=== PATIENT | female | born 1940 | race Caucasian/White ===

== ENCOUNTER 2016-07-22 05:09 | Inpatient (IN) | payer MEDICARE ==
[2016-07-22] VITALS (9 sets, daily range): BP systolic 119–149; BP diastolic 65–90; PULSE 88–120; RESP 18–20; TEMP 97.3–98.8; O2SAT 96–97
[~2016-07-22] VITALS: Ht 162.6 cm; Wt 70.2 kg
[~2016-07-22 05:09] MED LIST: EDOX1TAB5 PO; HYDR12.56 PO; LISI-360 PO; LISI10TA3 PO; METO50TA PO; MULT400T PO
[2016-07-22] MEDS ORDERED: APIX5TAB PO (05:15)
[2016-07-22] MEDS ORDERED: COLC1CAP3 PO ×2 (05:17→16:19)
[2016-07-22] MEDS ORDERED: AMIO200T PO (05:17)
[2016-07-22] MEDS ORDERED: METO100T PO (05:17)
--- NOTE | 2016-07-22 06:26 | PD ---
HPI Chief Complaint: Bleeding Time Seen by Provider: 05:33 Travel History International Travel<30 days: No Contact w/Intl Traveler<30days: No Traveled to known affect area: No History of Present Illness HPI 76-year-old female presents to the emergency department by EMS transport from home where she noted blood on the gauze from her post chest tube removal site. Patient is prescribed Eliquis. Patient's last dose of Eliquis 5 mg was Sunday morning. Patient was just discharged from [facility] Sunday afternoon. Patient was hospitalized 07/12/16 at [facility] to undergo cardiac ablation for atrial fibrillation. Patient states during the procedure there was a complication and she ended up with a hemopneumothorax requiring chest tube insertion. Patient has done fairly well however she has been having intermittent drainage from the chest tube insertion site and evening before being discharged on Sunday from the hospital for a large amount of bleeding this seemed to paulo and it was felt patient was stable for outpatient management. Patient has returned home to the area and reports that she lives alone and while up out of bed at 4 AM she noticed some moisture on her gauze and then identified that there was significant blood saturating the gauze dressing. Patient does not report any shortness of breath pleuritic pain chest pain dizziness near-syncope or syncope. Patient denies any increased activity that may have precipitated increased oozing from the site. Patient has had no fever or chills. No cough. Patient denies other concerns or complaints. Patient states she was recently on Savaysa and changed to Eliquis yesterday and had been on Multaq and is now prescribed amiodarone. Her docket clerk is Dr Somers. [facility] Past Medical History Narrative Medical Arthritis atrial fibrillation hypertension cardiac ablation hemopneumothorax with tube thoracostomy anticoagulation therapy; no tobacco use no alcohol use: Nursing notes reviewed Hx Anticoagulant Therapy: Yes Arthritis: Yes Atrial Fibrillation: Yes Cardiovascular Problems: Yes Diminished Hearing: No Hypertension: Yes Tetanus Vaccination: < 5 Years Influenza Vaccination: Yes ?: Not Menopausal: Yes Past Surgical History Cardiac Surgery: Yes (ablation for afib) Social History Alcohol Use: No Tobacco Use: No Substance Use: No Allergies-Medications (Allergen,Severity, Reaction): Coded Allergies: No Known Allergies (Verified , 07/22/16) Reported Meds & Prescriptions Reported Meds & Active Scripts Active Reported Amiodarone (Amiodarone HCl) 200 Mg Tab 200 Mg PO BID Metoprolol Tartrate 100 Mg Tab 100 Mg PO BID Colchicine 0.6 Mg Cap 0.6 Mg PO DAILY Eliquis (Apixaban) 5 Mg Tab 5 Mg PO BID Review of Systems Except as stated in HPI: all other systems reviewed are Neg Physical Exam Narrative GENERAL: Well-developed well-nourished female in no acute distress no respiratory distress; triage vital signs remarkable for heart rate; on shelter monitor heart rate is 110 in sinus tachycardia. SKIN: Warm and dry. HEAD: Normocephalic. EYES: No scleral icterus. No injection or drainage. NECK: Supple, trachea midline. No JVD or lymphadenopathy. CARDIOVASCULAR: Increased Regular rate and rhythm without murmurs, gallops, or rubs. Chest wall: Right chest wall 2 cm post-chest tube insertion site with old dried blood and scant oozing of old blood is noted. Ecchymosis is noted as well no crepitus. Minimal tenderness to direct palpation. No fluctuance. No induration or redness. No purulent drainage. RESPIRATORY: Breath sounds equal bilaterally right base decreased breath sounds to auscultation. No accessory muscle use. GASTROINTESTINAL: Abdomen soft, non-tender, nondistended. MUSCULOSKELETAL: No cyanosis, or edema. Radial and dorsalis pedis pulses 2+ to palpation. BACK: Nontender without obvious deformity. No CVA tenderness. Data Data Last Documented VS Vital Signs Date Time Temp Pulse Resp B/P Pulse Ox O2 Delivery O2 Flow Rate FiO2 07/22/16 05:28 88 18 96 Room Air 07/22/16 05:25 98.8 141/77 Orders Chest,Inspiration & Expiration (07/22/16 ) ^ Saline Lock (07/22/16 06:17) Complete Blood Count With Diff (07/22/16 06:17) Act Partial Throm Time (Ptt) (07/22/16 06:17) Prothrombin Time / Inr (Pt) (07/22/16 06:17) Type And Screen (07/22/16 06:17) Basic Metabolic Panel (Bmp) (07/22/16 06:17) Electrocardiogram (07/22/16 ) Place In Observation (07/22/16 ) Vital Signs (Adult) Q4H (07/22/16 07:26) Activity Oob With Assistance (07/22/16 07:26) Ios Architect / Telemetry .CONTINUOUS (07/22/16 07:26) Diet Heart Healthy (07/22/16 Breakfast) Sodium Chloride 0.9% Flush (Ns Flush) (07/22/16 07:30) Sodium Chloride 0.9% Flush (Ns Flush) (07/22/16 09:00) Acetaminophen (Tylenol) (07/22/16 07:30) Ondansetron Inj (Zofran Inj) (07/22/16 07:30) Magnesium Hydroxide Liq (Milk Of Magnesi (07/22/16 07:30) Basic Metabolic Panel (Bmp) (07/23/16 06:00) Complete Blood Count With Diff (07/23/16 06:00) Resp Oxygen Grupo C Titrat 1-4 L (07/22/16 ) Scd Bilateral/Knee High ABIMAEL.BID (07/22/16 07:26) Naloxone Inj (Narcan Inj) (07/22/16 07:30) Admit Order (Ed Use Only) (07/22/16 ) ^ Saline Lock (07/22/16 07:27) Resp Oxygen Grupo C Titrat 1-4 L (07/22/16 ) Notify Dr: Other (07/22/16 07:27) Sodium Chloride 0.9% Flush (Ns Flush) (07/22/16 09:00) Sodium Chloride 0.9% Flush (Ns Flush) (07/22/16 07:30) Hgb & Hct (07/22/16 13:00) Hgb & Hct (07/22/16 19:00) Labs Laboratory Tests Test 07/22/16 06:25 White Blood Count 11.9 TH/MM3 Red Blood Count 3.10 MIL/MM3 Hemoglobin 10.0 GM/DL Hematocrit 30.0 % Mean Corpuscular Volume 96.8 FL Mean Corpuscular Hemoglobin 32.2 PG Mean Corpuscular Hemoglobin 33.3 % Concent Red Cell Distribution Width 13.4 % Platelet Count 444 TH/MM3 Mean Platelet Volume 7.2 FL Neutrophils (%) (Auto) 69.9 % Lymphocytes (%) (Auto) 13.5 % Monocytes (%) (Auto) 11.4 % Eosinophils (%) (Auto) 3.0 % Basophils (%) (Auto) 2.2 % Neutrophils # (Auto) 8.2 TH/MM3 Lymphocytes # (Auto) 1.6 TH/MM3 Monocytes # (Auto) 1.4 TH/MM3 Eosinophils # (Auto) 0.4 TH/MM3 Basophils # (Auto) 0.3 TH/MM3 CBC Comment DIFF FINAL Differential Comment Prothrombin Time 10.8 SEC Prothromb Time International 1.0 RATIO Ratio Activated Partial 27.7 SEC Thromboplast Time Sodium Level 136 MEQ/L Potassium Level 4.0 MEQ/L Chloride Level 102 MEQ/L Carbon Dioxide Level 26.0 MEQ/L Anion Gap 8 MEQ/L Blood Urea Nitrogen 9 MG/DL Creatinine 0.60 MG/DL Estimat Glomerular Filtration 98 ML/MIN Rate Random Glucose 95 MG/DL Calcium Level 8.3 MG/DL [facility] Medical Decision Making Medical Screen Exam Complete: Yes Emergency Medical Condition: Yes Medical Record Reviewed: Yes Interpretation(s) CBC & BMP Diagram 07/22/16 06:25 Vital Signs Date Time Temp Pulse Resp B/P Pulse Ox O2 Delivery O2 Flow Rate FiO2 07/22/16 05:28 88 18 96 Room Air 07/22/16 05:25 98.8 88 18 141/77 96 Differential Diagnosis Coagulopathy, seroma, pneumothorax, anemia, pneumonia Narrative Course Imaging study ordered along with saline lock and basic labs Site was evaluated with scant dark oozing blood but no purulent induration fluctuance erythema or increased warmth. Steri-Strips were applied. Labs resulted hemoglobin 10.0 with minimal white count elevation 11,900 and no neutrophilia; Coagulation studies and normal range @7:05 AM patient remains mildly tachycardic EKG performed; plan will be to observe patient for change in hemoglobin due to Eliquis therapy; call placed to [facility] service; patient denies fever chills shortness of breath productive cough identified by chest x-ray to have no evidence for pneumothorax does have small effusion with infiltrate to the right base per reading radiologist. Physician Communication Physician Communication discussed with DR Bertrand for obs admission Diagnosis Primary Impression: Postprocedural seroma of a respiratory system organ or structure following a respiratory system procedure Admitting Information Admitting Physician Requests: Observation Nery Escobar MD Jul 22, 2016 06:26
[2016-07-22 06:35] LABS: AUTOMATED NEUTROPHIL # 8.2 TH/MM3 (1.8-7.7); BASOPHIL # 0.3 TH/MM3 (0-0.2); BASOPHIL % 2.2 % (0.0-2.0); EOSINOPHIL # 0.4 TH/MM3 (0-0.4); LYMPH % 13.5 % (9.0-44.0); LYMPHOCYTE # 1.6 TH/MM3 (1.0-4.8); MEAN CELL VOLUME 96.8 FL (80.0-100.0); MEAN CORPUSCULAR HEMOGLOBIN 32.2 PG (27.0-34.0); MEAN CORPUSCULAR HGB CONC 33.3 % (32.0-36.0); MONO % 11.4 % (0.0-8.0); NEUT % 69.9 % (16.0-70.0); PLATELET COUNT 444 TH/MM3 (150-450); RED CELL DISTRIBUTION WIDTH 13.4 % (11.6-17.2); WHITE BLOOD COUNT 11.9 TH/MM3 (4.0-11.0)
[2016-07-22 06:36] LABS: HEMO FLAGS DIFF FINAL
--- NOTE | 2016-07-22 06:37 | RADHPO ---
EXAM DATE/TIME: 07/22/2016 06:02 [facility] COMPARISON: No previous studies available for comparison. EXTERNAL COMPARISON : [facility] INDICATIONS : Shortness of breath. MEDICAL HISTORY : Hypertension. Arthritis. AFIB SURGICAL HISTORY : Total knee replacement, left. Total knee replacement, right. Right chest tube ENCOUNTER: Initial ACUITY: 1 day PAIN SCORE: 3/10 LOCATION: Bilateral chest FINDINGS: Single portable frontal view of the chest shows consolidation within the right lower lobe with small effusion. Left lung is clear. The heart is at the upper limits of normal in terms of size. CONCLUSION: Right lower lobe infiltrate with small effusion. Brent Cervantes Jr., MD on July 22, 2016 at 6:35 Board Certified Radiologist. This report was verified electronically.
[2016-07-22 06:47] LABS: APTT (PATIENT) 27.7 SEC (24.3-30.1); PROTHROMBIN TIME - PATIENT 10.8 SEC (9.8-11.6)
--- NOTE | 2016-07-22 07:29 | HHI.HP ---
[facility] No Primary Care Physician Admission Diagnosis Post chest tube bleeding w/ anticoagulation Diagnoses: Chief Complaint: Chest tube insertion side drainage. Travel History International Travel<30 Days: No Contact w/Intl Traveler <30 Da: No Traveled to Known Affected Are: No History of Present Illness Ms. Gracia is a pleasant 76-year-old female with a history of atrial fibrillation who presented to the emergency department on 07/22/2016 due to blood on the large from her chest tube removal site. Patient was admitted at [facility] in [place] for cardiac ablation for atrial fibrillation. . Procedure patient had complication of hemopneumothorax and she required chest tube insertion. Patient was discharged from the hospital on 07/21. She was advised to continue apixaban which she tube in the morning at the hospital on 07/21/2016. At the time of this interview, patient is doing well. No chest pain, shortness of breath, fever or chills. She reports no further bleeding from the chest tube removal site. Patient follows up with data modeling architect Dr. Somers. Review of Systems Except as stated in HPI: all other systems reviewed are Neg Past Family Social History Past Medical History Arthritis, atrial fibrillation Past Surgical History Bilateral postsurgery, knee scope Reported Medications Amiodarone (Amiodarone HCl) 200 Mg Tab 200 Mg PO BID Metoprolol Tartrate 100 Mg Tab 100 Mg PO BID Colchicine 0.6 Mg Cap 0.6 Mg PO DAILY Eliquis (Apixaban) 5 Mg Tab 5 Mg PO BID Allergies: Coded Allergies: No Known Allergies (Verified , 07/22/16) Family History No family history of heart disease. No family history of Alzheimer's or Parkinson's. Physical Exam Vital Signs Vital Signs Date Time Temp Pulse Resp B/P Pulse Ox O2 Delivery O2 Flow Rate FiO2 07/22/16 05:28 88 18 96 Room Air 07/22/16 05:25 98.8 88 18 141/77 96 Physical Exam GENERAL: This is a well-nourished, well-developed patient, in no apparent distress. SKIN: No rashes, ecchymoses or lesions. Warm and dry. HEAD: Atraumatic. Normocephalic. No temporal or scalp tenderness. EYES: Pupils equal round and reactive. No injection or drainage. ENT: Nose without bleeding, purulent drainage or septal hematoma. Airway patent. NECK: Trachea midline. No lymphadenopathy. Supple, nontender, no meningeal signs. CARDIOVASCULAR: Regular rate and rhythm without murmurs, gallops, or rubs. No JVD. RESPIRATORY: Clear to auscultation. Breath sounds equal bilaterally. No wheezes , rales, or rhonchi. GASTROINTESTINAL: Abdomen soft, non-tender, nondistended. No guarding. MUSCULOSKELETAL: Extremities without clubbing, cyanosis, or edema. NEUROLOGICAL: Awake and alert. Cranial nerves II through XII intact. No focal neurological deficits. Normal speech. Laboratory Laboratory Tests Test 07/22/16 06:25 White Blood Count 11.9 Red Blood Count 3.10 Hemoglobin 10.0 Hematocrit 30.0 Mean Corpuscular Volume 96.8 Mean Corpuscular Hemoglobin 32.2 Mean Corpuscular Hemoglobin 33.3 Concent Red Cell Distribution Width 13.4 Platelet Count 444 Mean Platelet Volume 7.2 Neutrophils (%) (Auto) 69.9 Lymphocytes (%) (Auto) 13.5 Monocytes (%) (Auto) 11.4 Eosinophils (%) (Auto) 3.0 Basophils (%) (Auto) 2.2 Neutrophils # (Auto) 8.2 Lymphocytes # (Auto) 1.6 Monocytes # (Auto) 1.4 Eosinophils # (Auto) 0.4 Basophils # (Auto) 0.3 CBC Comment DIFF FINAL Differential Comment Prothrombin Time 10.8 Prothromb Time International 1.0 Ratio Activated Partial 27.7 Thromboplast Time Sodium Level 136 Potassium Level 4.0 Chloride Level 102 Carbon Dioxide Level 26.0 Anion Gap 8 Blood Urea Nitrogen 9 Creatinine 0.60 Estimat Glomerular Filtration 98 Rate Random Glucose 95 Calcium Level 8.3 Result Diagram: 07/22/1625 07/22/16624 Imaging Last Impressions Chest X-Ray 07/22/16 0000 Signed Impressions: Service Date/Time: Friday, July 22, 2016 06:02 - CONCLUSION: Right lower lobe infiltrate with small effusion. Brent Cervantes Jr., MD Assessment and Plan Problem List: (1) Postprocedural seroma of a respiratory system organ or structure following a respiratory system procedure ICD Code: J95.862 Status: Acute (2) Atrial fibrillation ICD Code: I48.91 Status: Acute Assessment and Plan Ms. Gracia is a pleasant 76-year-old female with a history of atrial fibrillation and recent ablation done at [facility] in [facility] who presented to the emergency department on 07/22/2016 due to bleeding from the chest tube insertion site. During ablation procedure, patient ended up with a hemopneumothorax requiring chest tube insertion. She was discharged on 07/21/2016. Patient to apixaban in the morning of 07/21/2016. - Meagan-procedure complication of atrial fibrillation ablation. - Status post chest tube removal and discharged from the hospital on 2016. - No current drainage noted. - Atrial fibrillation - Currently Apixaban is on hold. - If H&H and hemodynamically stable, patient can likely be discharged on 07/22 and follow up with Dr. Somers. Full code. Jonathan Bertrand DO Jul 22, 2016 07:29
[2016-07-22] MEDS ORDERED: SODIUM CHLORIDE 0.9% FLUSH 10 ML FLUSH IVF PRN (07:30)
[2016-07-22] MEDS ORDERED: ONDANSETRON HCL 4 MG/2 ML VIAL IVP PRN (07:30)
[2016-07-22] MEDS ORDERED: NALOXONE HCL 0.4 MG/ML AMP IV PRN (07:30)
[2016-07-22] MEDS ORDERED: SODIUM CHLORIDE 0.9% FLUSH 10 ML FLUSH IV FLUSH PRN (07:30)
[2016-07-22] MEDS ORDERED: SODIUM CHLORIDE 0.9% FLUSH 10 ML FLUSH IV FLUSH SCH (09:00)
[2016-07-22] MEDS: SODIUM CHLORIDE 0.9% FLUSH 10 ML FLUSH IV FLUSH SCH ×2 (09:01→20:49)
--- NOTE | 2016-07-22 13:44 | EKG ---
Date Performed: 07/22/2016 Time Performed: 07:08:12 PTAGE: 76 years EKG: Sinus tachycardia with PAC(s). Rightward axis Extensive T wave changes are nonspecific Bord joselin ECG Compared to prior tracing no significant change PREVIOUS TRACING : 02/14/2016 14.12 DOCTOR: John Jacobo Interpretating Date/Time 07/22/2016 13:38:40
[2016-07-22 14:02] LABS: REVIEW FLAG FINAL
[2016-07-22] MEDS ORDERED: clonazePAM 0.5 MG TAB PO PRN (16:15)
[2016-07-22] MEDS ORDERED: AMIO400T PO (16:18)
[2016-07-22] MEDS ORDERED: PILL SPLITTER OTHER PRN (16:30)
[2016-07-22 19:04] LABS: HEMATOCRIT 31.1 % (35.0-46.0); REVIEW FLAG FINAL
[2016-07-22] MEDS: AMIODARONE 200 MG TAB PO SCH (20:45)
[2016-07-22] MEDS: METOPROLOL TARTRATE 100 MG TAB PO SCH (20:45)
[2016-07-23] VITALS (9 sets, daily range): BP systolic 125–141; BP diastolic 79–95; PULSE 75–109; RESP 14–20; TEMP 96.6–98.1; O2SAT 95–98
[2016-07-23] MEDS: ACETAMINOPHEN 325 MG TAB PO PRN (04:23)
[2016-07-23 07:24] LABS: AUTOMATED NEUTROPHIL # 8.5 TH/MM3 (1.8-7.7); BASOPHIL # 0.1 TH/MM3 (0-0.2); BASOPHIL % 0.8 % (0.0-2.0); EOSINOPHIL # 0.5 TH/MM3 (0-0.4); EOSINOPHIL % 4.4 % (0.0-4.0); HEMO FLAGS DIFF FINAL; LYMPH % 12.9 % (9.0-44.0); LYMPHOCYTE # 1.5 TH/MM3 (1.0-4.8); MEAN CELL VOLUME 96.4 FL (80.0-100.0); MEAN CORPUSCULAR HEMOGLOBIN 31.8 PG (27.0-34.0); MONO % 10.9 % (0.0-8.0); PLATELET COUNT 448 TH/MM3 (150-450); RED BLOOD COUNT 3.01 MIL/MM3 (4.00-5.30); RED CELL DISTRIBUTION WIDTH 13.2 % (11.6-17.2); WHITE BLOOD COUNT 11.9 TH/MM3 (4.0-11.0)
[2016-07-23 07:35] LABS: POTASSIUM 4.2 MEQ/L (3.5-5.1)
[2016-07-23 07:40] LABS: BICARBONATE 26.7 MEQ/L (21.0-32.0)
--- NOTE | 2016-07-23 08:58 | RADHPO ---
EXAM DATE/TIME: 07/23/2016 08:35 [facility] COMPARISON: CHEST INSPIRATION & EXPIRATION, July 22, 2016, 6:02. INDICATIONS : Post chest tube removal bleeding MEDICAL HISTORY : Hypertension. Arthritis. SURGICAL HISTORY : Total knee replacement, left. Total knee replacement, right. right side chest tube ENCOUNTER: Subsequent ACUITY: 2 days PAIN SCORE: 0/10 LOCATION: Right chest FINDINGS: The heart size is normal. There is a mild to moderate right pleural effusion. There some consolidatio n or atelectasis at the right lower lobe. The left lung is clear. CONCLUSION: Mild to moderate right pleural effusion with accompanying atelectasis or consolidation at the right b ase. Hernandez Koenig MD on July 23, 2016 at 8:54 Board Certified Radiologist. This report was verified electronically.
[2016-07-23] MEDS: COLCHICINE 0.6 MG TAB PO SCH (09:11)
[2016-07-23] MEDS: SODIUM CHLORIDE 0.9% FLUSH 10 ML FLUSH IV FLUSH SCH ×2 (09:11→21:02)
[2016-07-23] MEDS: METOPROLOL TARTRATE 100 MG TAB PO SCH ×2 (09:11→21:06)
[2016-07-23] MEDS: clonazePAM 0.5 MG TAB PO PRN ×2 (09:11→21:07)
[2016-07-23] MEDS: AMIODARONE 200 MG TAB PO SCH ×2 (09:11→21:06)
--- NOTE | 2016-07-23 10:51 | HHI.PR ---
Subjective Remarks Follow up for kylee-procedure complication, afib. Patient reports her chest tube removal site was leaking fluid again last night. No fever, chills. CXR this morning shows mild to moderate pleural effusion. Patient is doing well on room air. Objective Vitals Vital Signs Date Time Temp Pulse Resp B/P Pulse Ox O2 Delivery O2 Flow Rate FiO2 07/23/16 08:00 96.6 102 20 138/79 95 07/23/16 07:53 95 21 07/23/16 04:50 97.1 96 16 141/94 96 07/23/16 00:55 98.1 98 18 140/95 98 07/22/16 21:29 98.8 106 20 135/84 97 07/22/16 20:12 97 21 07/22/16 17:03 108 07/22/16 16:00 97.7 115 20 149/90 96 07/22/16 12:00 97.3 120 20 120/81 97 07/22/16 11:19 106 18 119/65 97 I/O 07/22/16 07/22/16 07/22/16 07/23/16 07/23/16 07/23/16 06:59 14:59 22:59 06:59 14:59 22:59 Intake Total 120 ml 0 ml Balance 120 ml 0 ml Intake Oral 120 ml IV Total 0 ml # Voids 3 # Bowel Movements 0 Result Diagram: 07/23/16 0713 07/23/16 0713 Imaging Last Impressions Chest X-Ray 07/23/16 0000 Signed Impressions: Service Date/Time: Saturday, July 23, 2016 08:35 - CONCLUSION: Mild to moderate right pleural effusion with accompanying atelectasis or consolidation at the right base. Hernandez Koenig MD Objective Remarks GENERAL: Alert, Oriented x 3, NAD. SKIN: Warm and dry. HEAD: Normocephalic. EYES: No scleral icterus. No injection or drainage. NECK: Supple, trachea midline. No JVD or lymphadenopathy. CARDIOVASCULAR: Regular rate and rhythm without murmurs, gallops, or rubs. RESPIRATORY: Moderate air entry. Diminished breath sounds on the right lower lung field. No wheezing appreciated. GASTROINTESTINAL: Abdomen soft, non-tender, nondistended. MUSCULOSKELETAL: No cyanosis, or edema. BACK: Nontender without obvious deformity. No CVA tenderness. Procedures None A/P Problem List: (1) Postprocedural seroma of a respiratory system organ or structure following a respiratory system procedure ICD Code: J95.862 Status: Acute (2) Atrial fibrillation ICD Code: I48.91 Status: Acute Assessment and Plan Ms. Gracia is a pleasant 76-year-old female with a history of atrial fibrillation and recent ablation done at [facility] in [facility] who presented to the emergency department on 07/22/2016 due to bleeding from the chest tube insertion site. During ablation procedure, patient ended up with a hemopneumothorax requiring chest tube insertion. She was discharged on 07/21/2016. Patient to apixaban in the morning of 07/21/2016. - Kylee-procedure complication of atrial fibrillation ablation. - Fluid drainage from chest tube removal site. - Status post chest tube removal and discharged from the hospital on 2016. - Discussed with Dr. Moore (Tipple Tender). - Will initiate Lasix 20mg IV twice a day for a day or so. - Also obtain a CT chest without contrast. - Atrial fibrillation - Currently Apixaban is on hold. Last dose was given prior to her discharge from [place] on Sunday07/20/2016. - If no further leak from chest tube removal site, we will consider discharging patient on 07/24/2016. Full code. SCDs. Jonathan Bertrand DO Jul 23, 2016 10:51
[2016-07-23] MEDS ORDERED: FUROSEMIDE 20 MG/2 ML VIAL IV PUSH ONE (11:00)
--- NOTE | 2016-07-23 12:02 | RADHPO ---
EXAM DATE/TIME: 07/23/2016 11:08 [facility] COMPARISON: No previous studies available for comparison. INDICATIONS : Abnormal chest xray; pleural effusion. Status post right chest tube removal two days ago. RADIATION DOSE: 7.78 CTDIvol (mGy) MEDICAL HISTORY : Hypertension. Cardiovascular disease SURGICAL HISTORY : Orthopedic surgery. Cardiac ablation. ENCOUNTER: Initial ACUITY: 2 days PAIN SCALE: 0/10 LOCATION: Right chest TECHNIQUE: Volumetric scanning of the chest was performed. Using automated exposure control and adjustment of t he mA and/or kV according to patient size, radiation dose was kept as low as reasonably achievable to obtain optimal diagnostic quality images. FINDINGS: There is a moderate right pleural effusion. There is high density material seen dependently in the p osterior inferior aspect of this effusion likely representing hemorrhage. There is increased density at the p osterior right lower lobe and to a lesser degree the posterior lateral aspect of the right middle lobe likely repres enting areas of atelectasis. There is a minimal amount of left pleural fluid present. Significant adenopathy is not seen. Visualized structures in the upper abdomen are unremarkable. The patient has bilateral breast implan ts in place. There does appear to be appear to intracapsular rupture seen bilaterally. CONCLUSION: Moderate right-sided pleural effusion with a suspected large comparative hemorrhage. There is some a ccompanying atelectasis in the right lower lobe and right middle lobes. Hernandez Koenig MD on July 23, 2016 at 11:39 Board Certified Radiologist. This report was verified electronically.
--- NOTE | 2016-07-23 15:05 | PD.CAR.PN ---
CVT Progress Note Subjective/Hospital Course: Referral received and discussed with Dr. Bertrand Full consult to follow Rosemary Rai Objective: Vital Signs Date Time Temp Pulse Resp B/P Pulse Ox O2 Delivery O2 Flow Rate FiO2 07/23/16 12:00 97.0 79 20 130/89 98 07/23/16 09:10 82 07/23/16 08:00 96.6 102 20 138/79 95 07/23/16 07:53 95 21 07/23/16 04:50 97.1 96 16 141/94 96 07/23/16 00:55 98.1 98 18 140/95 98 07/22/16 21:29 98.8 106 20 135/84 97 07/22/16 20:12 97 21 07/22/16 17:03 108 07/22/16 16:00 97.7 115 20 149/90 96 Labs: Laboratory Tests Test 07/23/16 07:13 White Blood Count 11.9 TH/MM3 (4.0-11.0) Red Blood Count 3.01 MIL/MM3 (4.00-5.30) Hemoglobin 9.6 GM/DL (11.6-15.3) Hematocrit 29.0 % (35.0-46.0) Mean Corpuscular Volume 96.4 FL (80.0-100.0) Mean Corpuscular Hemoglobin 31.8 PG (27.0-34.0) Mean Corpuscular Hemoglobin 33.0 % Concent (32.0-36.0) Red Cell Distribution Width 13.2 % (11.6-17.2) Platelet Count 448 TH/MM3 (150-450) Mean Platelet Volume 6.8 FL (7.0-11.0) Neutrophils (%) (Auto) 71.0 % (16.0-70.0) Lymphocytes (%) (Auto) 12.9 % (9.0-44.0) Monocytes (%) (Auto) 10.9 % (0.0-8.0) Eosinophils (%) (Auto) 4.4 % (0.0-4.0) Basophils (%) (Auto) 0.8 % (0.0-2.0) Neutrophils # (Auto) 8.5 TH/MM3 (1.8-7.7) Lymphocytes # (Auto) 1.5 TH/MM3 (1.0-4.8) Monocytes # (Auto) 1.3 TH/MM3 (0-0.9) Eosinophils # (Auto) 0.5 TH/MM3 (0-0.4) Basophils # (Auto) 0.1 TH/MM3 (0-0.2) CBC Comment DIFF FINAL Differential Comment Sodium Level 139 MEQ/L (136-145) Potassium Level 4.2 MEQ/L (3.5-5.1) Chloride Level 105 MEQ/L (98-107) Carbon Dioxide Level 26.7 MEQ/L (21.0-32.0) Anion Gap 7 MEQ/L (5-15) Blood Urea Nitrogen 9 MG/DL (7-18) Creatinine 0.52 MG/DL (0.50-1.00) Estimat Glomerular Filtration 115 ML/MIN Rate (>89) Random Glucose 96 MG/DL (74-106) Calcium Level 8.2 MG/DL (8.5-10.1) Result Diagram: 07/23/16 0713 07/23/16 0713 Tam Escobedo MD Jul 23, 2016 15:05
--- NOTE | 2016-07-23 17:14 | MB ---
cc: MD MEHRDAD,[facility] DATE OF CONSULTATION: 07/23/2016. REASON FOR CONSULTATION: Right hemothorax. HISTORY OF PRESENT ILLNESS: This 72-year-old lady was sent to [facility] for cardiac ablation for recurrent and recalcitrant atrial fibrillation. The patient apparently developed a hemothorax there, had a chest tube placed and then the patient was discharged from the hospital on 07/21/2016 and placed on Eliquis. Unfortunately on 07/21/16, the patient came to our emergency room noting bleeding from the chest tube site. She is a patient of Dr. Aponte. The patient now has a large right hemothorax and the question arises about further care; hence, the consultation. PAST MEDICAL HISTORY: 1. Atrial fibrillation. 2. Cataracts. PAST SURGICAL HISTORY: 1. Cataract removal. 2. Bilateral arthroscopy of the knees. 3. The above-noted cardiac ablation. MEDICATIONS: Medications can be found on the record and include: 1. Amiodarone. 2. Metoprolol. 3. Eliquis. SOCIAL HISTORY: The patient does not smoke or drink. 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 PHYSICAL EXAMINATION: GENERAL: The physical examination reveals a pleasant 76-year-old lady in no acute distress. HEAD, EYES, EARS, NOSE, THROAT: Normocephalic. No trauma to the head. Pupils equal and reactive. Extraocular muscles intact. NECK: The neck is supple. Bilateral carotid pulses. No bruits. No jugular venous distention. CHEST: Bilateral breath sounds; however, decreased over the right side mainly from long term at the chest down and in a sitting position the patient has dullness about two-thirds up the chest on the right on percussion while the tip of the lung is hyperresonant. HEART: Actually the patient is in regular rhythm. She is not in atrial fibrillation at this point. ABDOMEN: Soft. Active bowel sounds. EXTREMITIES: Grossly within normal limits with good proximal and distal pulses. No vascular deficit. NEUROLOGIC: The patient is fully intact. I reviewed laboratory and diagnostic procedures. This unfortunate lady had recurrent hemothorax as a result of cardiac ablation which is a recognized complication of the same procedure. Patients will bleed usually from the pulmonary vessels but in this particular situation this did not stay contained then bled through the surface of the lung and into the chest. Eliquis obviously did not help. At this point I believe the patient should be transferred to the main hospital on a routine basis. I have discussed this case with Dr. Gould. Will place a percutaneous PleurX drain and then reassess. If this completely drains the chest, then nothing else needs to be done; however, if it does not and the patient has a residual hemothorax and organized old blood, then she will need a thoracoscopy with decortication for the risk of empyema is fairly high in this patient. Either way, the patient will be transferred and will have a PleurX catheter and we will go from there. Thank you very much for the referral. CRITICAL CARE TIME: Forty (40) minutes. Tam RAMÍREZ/MARIJA /4:39 PM /5:04 PM
[2016-07-23] MEDS: guaiFENesin/CODEINE SYRUP 200 MG/20 MG/10 ML CUP PO PRN (17:40)
[2016-07-23] MEDS: FUROSEMIDE 20 MG/2 ML VIAL IV PUSH SCH (17:41)
[2016-07-24] VITALS (7 sets, daily range): BP systolic 100–127; BP diastolic 64–92; PULSE 84–99; RESP 19–20; TEMP 97.1–98.5; O2SAT 92–96
[2016-07-24] MEDS: guaiFENesin/CODEINE SYRUP 200 MG/20 MG/10 ML CUP PO PRN (03:15)
[2016-07-24] MEDS: COLCHICINE 0.6 MG TAB PO SCH (10:12)
[2016-07-24] MEDS: AMIODARONE 200 MG TAB PO SCH (10:12)
[2016-07-24] MEDS: METOPROLOL TARTRATE 100 MG TAB PO SCH (10:13)
[2016-07-24] MEDS: FUROSEMIDE 20 MG/2 ML VIAL IV PUSH SCH (10:13)
[2016-07-24] MEDS: SODIUM CHLORIDE 0.9% FLUSH 10 ML FLUSH IV FLUSH SCH ×2 (10:14→21:00)
--- NOTE | 2016-07-24 11:14 | HHI.PR ---
Subjective Remarks resting comfortably with no distress. no sob,chest pain or fever. Objective Vitals Vital Signs Date Time Temp Pulse Resp B/P Pulse Ox O2 Delivery O2 Flow Rate FiO2 07/24/16 08:05 98.0 84 19 124/78 95 07/24/16 04:00 98.5 92 20 114/92 93 07/24/16 00:00 97.1 98 20 127/76 96 07/23/16 21:15 97.3 109 14 125/84 96 07/23/16 21:10 75 07/23/16 16:00 97.5 101 20 127/84 98 07/23/16 12:00 97.0 79 20 130/89 98 I/O 07/23/16 07/23/16 07/23/16 07/24/16 07/24/16 07/24/16 07:00 15:00 23:00 07:00 15:00 23:00 Intake Total 900 ml 120 ml Balance 900 ml 120 ml Intake Oral 900 ml 120 ml # Voids 3 4 1 0 # Bowel Movements 0 0 0 0 Result Diagram: 07/23/16 0713 07/23/16 0713 Imaging Last Impressions Chest X-Ray 07/23/16 0000 Signed Impressions: Service Date/Time: Saturday, July 23, 2016 08:35 - CONCLUSION: Mild to moderate right pleural effusion with accompanying atelectasis or consolidation at the right base. Hernandez Koenig MD Chest CT 07/23/16 0000 Signed Impressions: Service Date/Time: Saturday, July 23, 2016 11:08 - CONCLUSION: Moderate right-sided pleural effusion with a suspected large comparative hemorrhage. There is some accompanying atelectasis in the right lower lobe and right middle lobes. Hernandez Koenig MD Objective Remarks GENERAL: This is a well-nourished, well-developed patient, in no apparent distress. CARDIOVASCULAR: Regular rate and regular rhythm without murmurs, gallops, or rubs. RESPIRATORY: diminished air entry right lung GASTROINTESTINAL: Abdomen soft, non-tender, nondistended. Normal, active bowel sounds MUSCULOSKELETAL: Extremities without clubbing, cyanosis, or edema. NEURO: Alert & Oriented x4 to person, place, time, situation. Moves all ext x4 Procedures None Medications and IVs Current Medications Sodium Chloride (NS Flush) 2 ml UNSCH PRN IV FLUSH FLUSH AFTER USING IV ACCESS ; Start 07/22/16 at 07:30 Sodium Chloride (NS Flush) 2 ml BID IV FLUSH Last administered on 07/24/16 10: 14; Start 07/22/16 at 09:00 Acetaminophen (Tylenol) 650 mg Q4H PRN PO Fever, headache, pain 1-4 Last administered on 07/23/16 04:23; Start 07/22/16 at 07:30 Ondansetron HCl (Zofran Inj) 4 mg Q6H PRN IVP NAUSEA OR VOMITING; Start at 07:30 Magnesium Hydroxide (Milk Of Magnesia Liq) 30 ml Q12H PRN PO CONSTIPATION; Start 07/22/16 at 07:30 Naloxone HCl (Narcan Inj) 0.4 mg UNSCH PRN IV SEE LABEL COMMENTS; Start at 07:30 Sodium Chloride (NS Flush) 2 ml BID IV FLUSH ; Start 07/22/16 at 09:00; Status UNV Sodium Chloride (NS Flush) 2 ml UNSCH PRN IVF FLUSH AFTER USING IV ACCESS; Start 07/22/16 at 07:30; Status UNV Clonazepam (KlonoPIN) 0.5 mg Q8HR PRN PO Anxiety Last administered on 20:52; Start 07/22/16 at 16:15; Stop 07/23/16 at 07:37; Status DC Amiodarone HCl (Cordarone) 400 mg BID PO Last administered on 07/24/16 10:12; Start 07/22/16 at 21:00 Colchicine (Colchicine) 0.3 mg DAILY PO Last administered on 07/24/16 10:12; Start 07/23/16 at 09:00 Metoprolol Tartrate (Lopressor) 100 mg BID PO Last administered on 07/24/16 10 :13; Start 07/22/16 at 21:00 Miscellaneous (Pill Splitter) 1 ea UNSCH PRN OTHER SEE LABEL COMMENTS; Start at 16:30 Clonazepam (KlonoPIN) 0.25 mg Q8H PRN PO Anxiety Last administered on 21:07; Start 07/23/16 at 07:45 Guaifenesin/ Codeine Phosphate (Robitussin Ac 200-20 Mg/10 ml Liq) 10 ml Q6H PRN PO Cough Last administered on 07/24/16 03:15; Start 07/23/16 at 09:30 Furosemide (Lasix Inj) 20 mg BID@09,18 IV PUSH Last administered on 07/24/16 10:13; Start 07/23/16 at 18:00; Stop 07/24/16 at 17:59 Furosemide (Lasix Inj) 20 mg ONCE ONCE IV PUSH Last administered on 07/23/16 11:45; Start 07/23/16 at 11:00; Stop 07/23/16 at 11:01; Status DC A/P Assessment and Plan Ms. Gracia is a pleasant 76-year-old female with a history of atrial fibrillation and recent ablation done at [facility] in [facility] who presented to the emergency department on 07/22/2016 due to bleeding from the chest tube insertion site. During ablation procedure, patient ended up with a hemopneumothorax requiring chest tube insertion. She was discharged on 07/21/2016. - Meagan-procedure complication of atrial fibrillation ablation with right-sided hemothorax -chest CT with moderate right-sided pleural effusion with a suspected large comparative hemorrhage. - Status post chest tube removal and discharged from the hospital on 2016. -- started on Lasix . - vascular surgery consulted and plan for cath. drainage by IR today. - Atrial fibrillation -continue Amiodarone and Metoprolol - Currently Apixaban is on hold. Last dose was given prior to her discharge from [place] on Sunday07/20/2016. Bandar Roldan MD Jul 24, 2016 11:14
[2016-07-24] MEDS ORDERED: LIDOCAINE 1%/EPINEPHrine 1:100,000 SOLN 20 ML VIAL ONE (16:58)
[2016-07-24] MEDS ORDERED: LORazepam 2 MG/ML VIAL ONE (17:00)
[2016-07-24] MEDS ORDERED: fentaNYL CITRATE 250 MCG/5 ML AMP ONE (17:00)
--- NOTE | 2016-07-24 17:49 | PD.RAD ---
Post CT Procedure Prog Note Pre Procedure Diagnosis: (1) Postprocedural seroma of a respiratory system organ or structure following a respiratory system procedure Post Procedure Diagnosis: (1) Postprocedural seroma of a respiratory system organ or structure following a respiratory system procedure Procedure Date: Jul 24, 2016 Supervising Radiologist: Roe Donald Proceduralist/Assist: Santi Tracey RT(R) Anesthesia: Analgesia Plan of Activity Patient to Unit: Nursing Unit Patient Condition: Good See PACS Report for procedural detail/treatment Drainage Procedure Procedure 1 Side: Right Procedure Type: Chest Tube Tunneled Procedure: Placement Fluid Description: Bloody Roe Donald MD Jul 24, 2016 17:49
--- NOTE | 2016-07-24 18:22 | RADRPT ---
EXAM DATE/TIME: 07/24/2016 18:06 [facility] COMPARISON: No previous studies available for comparison. INDICATIONS : Post chest tube placement. MEDICAL HISTORY : None. SURGICAL HISTORY : None. ENCOUNTER: Initial ACUITY: 1 day PAIN SCORE: 10 LOCATION: Right chest FINDINGS: There is a small right-sided effusion. A pigtail catheter overlies the right lung base. I do not see a pneumothorax. There is cardiomegaly. Osseous structures are intact. CONCLUSION: No obvious pneumothorax status post chest tube placement. Isaak Collins MD on July 24, 2016 at 18:20 Board Certified Radiologist. This report was verified electronically.
[2016-07-25] VITALS (8 sets, daily range): BP systolic 99–121; BP diastolic 59–75; PULSE 81–101; RESP 16–20; TEMP 95.5–98.3; O2SAT 95–97
[2016-07-25] MEDS: METOPROLOL TARTRATE 100 MG TAB PO SCH ×3 (00:49→22:46)
[2016-07-25] MEDS: AMIODARONE 200 MG TAB PO SCH ×3 (00:49→22:46)
[2016-07-25] MEDS: clonazePAM 0.5 MG TAB PO PRN ×2 (01:23→22:47)
[2016-07-25 07:48] LABS: AUTOMATED NEUTROPHIL # 7.5 TH/MM3 (1.8-7.7); BASOPHIL % 0.4 % (0.0-2.0); EOSINOPHIL # 0.5 TH/MM3 (0-0.4); EOSINOPHIL % 5.1 % (0.0-4.0); HEMATOCRIT 27.6 % (35.0-46.0); HEMO FLAGS DIFF FINAL; LYMPH % 12.2 % (9.0-44.0); LYMPHOCYTE # 1.3 TH/MM3 (1.0-4.8); MEAN CELL VOLUME 95.1 FL (80.0-100.0); MEAN CORPUSCULAR HEMOGLOBIN 33.1 PG (27.0-34.0); MEAN CORPUSCULAR HGB CONC 34.8 % (32.0-36.0); MONO % 11.5 % (0.0-8.0); NEUT % 70.8 % (16.0-70.0); PLATELET COUNT 415 TH/MM3 (150-450); RED BLOOD COUNT 2.91 MIL/MM3 (4.00-5.30); RED CELL DISTRIBUTION WIDTH 13.5 % (11.6-17.2); WHITE BLOOD COUNT 10.6 TH/MM3 (4.0-11.0)
[2016-07-25] MEDS: COLCHICINE 0.6 MG TAB PO SCH (08:31)
[2016-07-25] MEDS: SODIUM CHLORIDE 0.9% FLUSH 10 ML FLUSH IV FLUSH SCH ×2 (08:32→22:47)
--- NOTE | 2016-07-25 08:38 | HHI.PR ---
Subjective Remarks in no acute distress. but is complaining of moderate pain to the right chest- worse with inspiration. has constipation. d/w the RN. Objective Vitals Vital Signs Date Time Temp Pulse Resp B/P Pulse Ox O2 Delivery O2 Flow Rate FiO2 07/25/16 05:45 98.2 88 20 121/75 95 07/25/16 02:01 98.3 101 20 114/68 96 07/24/16 21:06 97.2 97 20 103/74 92 07/24/16 15:20 98.4 99 19 111/75 96 07/24/16 11:40 97.8 85 19 100/64 95 07/24/16 10:14 98 I/O 07/24/16 07/24/16 07/24/16 07/25/16 07/25/16 07/25/16 07:00 15:00 23:00 07:00 15:00 23:00 Intake Total 480 ml Balance 480 ml Intake Oral 480 ml # Voids 0 5 1 # Bowel Movements 0 0 Result Diagram: 07/25/16 0653 07/23/16 0713 Imaging Last Impressions Chest X-Ray 07/24/16 0000 Signed Impressions: Service Date/Time: Sunday, July 24, 2016 18:06 - CONCLUSION: No obvious pneumothorax status post chest tube placement. Isaak Collins MD Chest CT 07/23/16 0000 Signed Impressions: Service Date/Time: Saturday, July 23, 2016 11:08 - CONCLUSION: Moderate right-sided pleural effusion with a suspected large comparative hemorrhage. There is some accompanying atelectasis in the right lower lobe and right middle lobes. Hernandez Koenig MD Objective Remarks GENERAL: This is a well-nourished, well-developed patient, in no apparent distress. CARDIOVASCULAR: Regular rate and regular rhythm without murmurs, gallops, or rubs. RESPIRATORY: better air entry right lung- chest tube in place. GASTROINTESTINAL: Abdomen soft, non-tender, nondistended. Normal, active bowel sounds MUSCULOSKELETAL: Extremities without clubbing, cyanosis, or edema. NEURO: Alert & Oriented x4 to person, place, time, situation. Moves all ext x4 Procedures chest tube placement. Medications and IVs Current Medications Sodium Chloride (NS Flush) 2 ml UNSCH PRN IV FLUSH FLUSH AFTER USING IV ACCESS ; Start 07/22/16 at 07:30 Sodium Chloride (NS Flush) 2 ml BID IV FLUSH Last administered on 07/24/16 21: 00; Start 07/22/16 at 09:00 Acetaminophen (Tylenol) 650 mg Q4H PRN PO Fever, headache, pain 1-4 Last administered on 07/23/16 04:23; Start 07/22/16 at 07:30 Ondansetron HCl (Zofran Inj) 4 mg Q6H PRN IVP NAUSEA OR VOMITING; Start at 07:30 Magnesium Hydroxide (Milk Of Magnesia Liq) 30 ml Q12H PRN PO CONSTIPATION; Start 07/22/16 at 07:30 Naloxone HCl (Narcan Inj) 0.4 mg UNSCH PRN IV SEE LABEL COMMENTS; Start at 07:30 Sodium Chloride (NS Flush) 2 ml BID IV FLUSH ; Start 07/22/16 at 09:00; Status UNV Sodium Chloride (NS Flush) 2 ml UNSCH PRN IVF FLUSH AFTER USING IV ACCESS; Start 07/22/16 at 07:30; Status UNV Clonazepam (KlonoPIN) 0.5 mg Q8HR PRN PO Anxiety Last administered on 20:52; Start 07/22/16 at 16:15; Stop 07/23/16 at 07:37; Status DC Amiodarone HCl (Cordarone) 400 mg BID PO Last administered on 07/25/16 00:49; Start 07/22/16 at 21:00 Colchicine (Colchicine) 0.3 mg DAILY PO Last administered on 07/24/16 10:12; Start 07/23/16 at 09:00 Metoprolol Tartrate (Lopressor) 100 mg BID PO Last administered on 07/25/16 00 :49; Start 07/22/16 at 21:00 Miscellaneous (Pill Splitter) 1 ea UNSCH PRN OTHER SEE LABEL COMMENTS; Start at 16:30 Clonazepam (KlonoPIN) 0.25 mg Q8H PRN PO Anxiety Last administered on 01:23; Start 07/23/16 at 07:45 Guaifenesin/ Codeine Phosphate (Robitussin Ac 200-20 Mg/10 ml Liq) 10 ml Q6H PRN PO Cough Last administered on 07/24/16 03:15; Start 07/23/16 at 09:30 Furosemide (Lasix Inj) 20 mg BID@,18 IV PUSH Last administered on 07/24/16 10:13; Start 07/23/16 at 18:00; Stop 07/24/16 at 17:59; Status DC Furosemide (Lasix Inj) 20 mg ONCE ONCE IV PUSH Last administered on 07/23/16 11:45; Start 07/23/16 at 11:00; Stop 07/23/16 at 11:01; Status DC Lidocaine/ Epinephrine (Xylocaine-Epi 1%-1:100,000 Inj) 20 ml STK-MED ONCE .ROUTE Last administered on 07/24/16 16:58; Start 07/24/16 at 16:58; Stop at 16:59; Status DC Fentanyl Citrate (fentaNYL INJ) 250 mcg STK-MED ONCE .ROUTE Last administered on 07/24/16 17:00; Start 07/24/16 at 17:00; Stop 07/24/16 at 17:01; Status DC Lorazepam (Ativan Inj) 2 mg STK-MED ONCE .ROUTE Last administered on 07/24/16 17:00; Start 07/24/16 at 17:00; Stop 07/24/16 at 17:01; Status DC A/P Assessment and Plan Ms. Gracia is a pleasant 76-year-old female with a history of atrial fibrillation and recent ablation done at [facility] in [facility] who presented to the emergency department on 07/22/2016 due to bleeding from the chest tube insertion site. During ablation procedure, patient ended up with a hemopneumothorax requiring chest tube insertion. She was discharged on 07/21/2016. - Meagan-procedure complication of atrial fibrillation ablation with right-sided hemothorax -chest CT with moderate right-sided pleural effusion with a suspected large comparative hemorrhage. - Status post chest tube removal and discharged from the hospital on 2016. -s/p chest tube placement on 07/24/16 -continue with pain control; start on [place] and dilaudid IV for breakthrough pain. - vascular surgery following. - Atrial fibrillation -continue Amiodarone and Metoprolol - Currently Apixaban is on hold. Last dose was given prior to her discharge from [place] on Sunday07/20/2016. -constipation; laxatives as needed. DVT prophylaxis with SCD's Bandar Roldan MD Jul 25, 2016 08:38
[2016-07-25] MEDS ORDERED: HYDROmorphone HCL PF 1 MG/ML VIAL IV PUSH PRN (08:45)
[2016-07-25] MEDS ORDERED: DOCUSATE SODIUM 100 MG CAP PO PRN (08:45)
[2016-07-25] MEDS: ACETAMINOPHEN/HYDROcodone 325 MG/5 MG TAB PO PRN ×4 (09:20→23:01)
--- NOTE | 2016-07-25 09:25 | RADRPT ---
EXAM DATE/TIME: 07/24/2016 17:27 INDICATIONS : Right hemothorax. SEDATION TIME: 30 minutes MEDICATION(S): 1.) 1 mg lorazepam (Ativan) IV 2.) 150 mcg fentanyl (Sublimaze) IV DEVICE(S): 1.) Skater 12 Fr FLUID: Total volume of500 cc of cloudy, red fluid was remoted. Fluid was discarded. MEDICAL HISTORY : Cardiovascular disease. SURGICAL HISTORY : None. ENCOUNTER: Initial ACUITY: 1 day PAIN SCORE: 0/10 LOCATION: Bilateral chest PROCEDURE: 1.) Conscious sedation with continuous EKG and oximetry monitoring. 2.) EKG and oximetry remained stable throughout the procedure. PROCEDURE : 1. CT guided chest tube placement. 2. Conscious sedation with continuous EKG and oximetry monitoring. The risks, benefits and alternatives to the procedure were explained and verbal and written consent w as obtained. The site was prepped in sterile fashion. Full sterile technique was used, including ca p, mask, sterile gloves and gown and a large sterile sheet. Hand hygiene and 2% chlorhexidine and/or betadine/alcohol prep was utilized per protocol for cutaneous antisepsis. The skin and subcutaneous tissues were infiltrated with local anesthetic solution. Using automated exposure control and adjus tment of the mA and/or kV according to patient size, radiation dose was kept as low as reasonably ach ievable to obtain optimal diagnostic quality images. With CT guidance the chest was punctured and the prescribed catheter was placed in the lung apex. Wal l suction was applied. Post procedure images demonstrate satisfactory position of the tube. The cat heter was sutured in place and a Percu-Stay was applied. Conscious sedation was performed with the prescribed dosages and duration as above. The patient anahy ated the procedure well and there were no complications. EKG and oximetry remained stable throughout the procedure. The patient was sent to post anesthesia recovery in stable condition. CONCLUSION: Uncomplicated chest tube placement as above. Roe Donald MD on July 25, 2016 at 9:22 Board Certified Radiologist. This report was verified electronically.
[2016-07-25] MEDS: guaiFENesin/CODEINE SYRUP 200 MG/20 MG/10 ML CUP PO PRN (13:47)
--- NOTE | 2016-07-25 14:29 | PD.CAR.PN ---
CVT Progress Note Subjective/Hospital Course: Referral received and discussed with Dr. Bertrand Full consult to follow Rosemary Rai 07/26/15 Patient underwent yesterday successful placement of a chest tube drain. Drain about 600 cc of old blood We'll check chest x-ray tomorrow and all things equal in a few days the drain will come out If patient still has retained hemothorax eventually required thoracoscopy but I don't think this will be the case Will continue to follow Objective: Vital Signs Date Time Temp Pulse Resp B/P Pulse Ox O2 Delivery O2 Flow Rate FiO2 07/25/16 13:05 96.7 91 16 101/59 96 07/25/16 10:20 16 07/25/16 10:17 88 07/25/16 08:44 97.3 81 16 102/71 97 07/25/16 05:45 98.2 88 20 121/75 95 07/25/16 02:01 98.3 101 20 114/68 96 07/24/16 21:06 97.2 97 20 103/74 92 07/24/16 15:20 98.4 99 19 111/75 96 Labs: Laboratory Tests Test 07/25/16 06:53 White Blood Count 10.6 TH/MM3 (4.0-11.0) Red Blood Count 2.91 MIL/MM3 (4.00-5.30) Hemoglobin 9.6 GM/DL (11.6-15.3) Hematocrit 27.6 % (35.0-46.0) Mean Corpuscular Volume 95.1 FL (80.0-100.0) Mean Corpuscular Hemoglobin 33.1 PG (27.0-34.0) Mean Corpuscular Hemoglobin 34.8 % Concent (32.0-36.0) Red Cell Distribution Width 13.5 % (11.6-17.2) Platelet Count 415 TH/MM3 (150-450) Mean Platelet Volume 7.4 FL (7.0-11.0) Neutrophils (%) (Auto) 70.8 % (16.0-70.0) Lymphocytes (%) (Auto) 12.2 % (9.0-44.0) Monocytes (%) (Auto) 11.5 % (0.0-8.0) Eosinophils (%) (Auto) 5.1 % (0.0-4.0) Basophils (%) (Auto) 0.4 % (0.0-2.0) Neutrophils # (Auto) 7.5 TH/MM3 (1.8-7.7) Lymphocytes # (Auto) 1.3 TH/MM3 (1.0-4.8) Monocytes # (Auto) 1.2 TH/MM3 (0-0.9) Eosinophils # (Auto) 0.5 TH/MM3 (0-0.4) Basophils # (Auto) 0.0 TH/MM3 (0-0.2) CBC Comment DIFF FINAL Differential Comment Result Diagram: 07/25/16 0653 07/23/16 0713 Tam Escobedo MD Jul 25, 2016 14:29
[2016-07-25] MEDS: MAGNESIUM HYDROXIDE SUSP 30 ML CUP PO PRN (15:53)
[2016-07-26] VITALS (9 sets, daily range): BP systolic 91–133; BP diastolic 57–79; PULSE 75–92; RESP 18–20; TEMP 95.9–98.5; O2SAT 90–99
[2016-07-26] MEDS: guaiFENesin/CODEINE SYRUP 200 MG/20 MG/10 ML CUP PO PRN (04:19)
[2016-07-26] MEDS: ACETAMINOPHEN/HYDROcodone 325 MG/5 MG TAB PO PRN ×4 (04:20→21:33)
--- NOTE | 2016-07-26 07:20 | RADRPT ---
EXAM DATE/TIME: 07/26/2016 06:12 [facility] COMPARISON: CT THORAX W/O CONTRAST, July 23, 2016, 11:08. CHEST SINGLE AP, July 23, 2016, 8:35. INDICATIONS : Post chest tube bleeding. MEDICAL HISTORY : Cardiovascular disease. SURGICAL HISTORY : None. ENCOUNTER: Initial ACUITY: 1 day PAIN SCORE: 2/10 LOCATION: Right chest FINDINGS: Portable upright expiratory view of the chest demonstrates a normal-sized cardiac silhouette. Small b ore pigtail pleural catheter overlies the inferior right hemithorax. There is a persistent right basi lar pleural-parenchymal opacity, slightly smaller than the prior study. There is new mild consolidati on in the right upper lung zone. There is also slight blunting of the left costophrenic sulcus. No pn eumothorax is visualized. Breast implants are present. CONCLUSION: 1. Right chest tube is present in the inferior hemithorax and no pneumothorax is visualized. Pleural- based opacity/effusion remains present but decreased and there is associated adjacent atelectasis and /or consolidation. 2. There is mild consolidation in the right upper lobe. Hernandez Anthony MD on July 26, 2016 at 7:15 Board Certified Radiologist. This report was verified electronically.
[2016-07-26] MEDS: SODIUM CHLORIDE 0.9% FLUSH 10 ML FLUSH IV FLUSH SCH ×2 (09:00→21:36)
[2016-07-26] MEDS: METOPROLOL TARTRATE 100 MG TAB PO SCH ×3 (09:40→21:32)
[2016-07-26] MEDS: AMIODARONE 200 MG TAB PO SCH ×2 (09:40→21:32)
[2016-07-26] MEDS: COLCHICINE 0.6 MG TAB PO SCH (09:41)
--- NOTE | 2016-07-26 10:14 | HHI.PR ---
Subjective Remarks in no acute distress. still with some pain to the right chest. chest tube in place. had a BM yesterday. no other complaints. Objective Vitals Vital Signs Date Time Temp Pulse Resp B/P Pulse Ox O2 Delivery O2 Flow Rate FiO2 07/26/16 05:51 97.2 91 20 91/77 99 07/26/16 01:15 95.9 92 20 101/64 92 07/25/16 20:00 96.9 99 20 99/62 96 07/25/16 20:00 88 07/25/16 17:57 95 21 07/25/16 16:40 95.5 92 16 100/65 95 07/25/16 14:49 16 07/25/16 13:05 96.7 91 16 101/59 96 07/25/16 10:20 16 07/25/16 10:17 88 I/O 07/25/16 07/25/16 07/25/16 07/26/16 07/26/16 07/26/16 07:00 15:00 23:00 07:00 15:00 23:00 Output Total 580 ml Balance -580 ml Output Chest Tube Drainage Total 580 ml # Voids 1 1 2 2 # Bowel Movements 1 Result Diagram: 07/25/16 0653 07/23/16 0713 Imaging Last Impressions Chest X-Ray 07/26/16 0600 Signed Impressions: Service Date/Time: Tuesday, July 26, 2016 06:12 - CONCLUSION: 1. Right chest tube is present in the inferior hemithorax and no pneumothorax is visualized. Pleural-based opacity/effusion remains present but decreased and there is associated adjacent atelectasis and/or consolidation. 2. There is mild consolidation in the right upper lobe. Hernandez Anthony MD Chest Tube Insertion 07/24/16 0000 Signed Impressions: Service Date/Time: Sunday, July 24, 2016 17:27 - CONCLUSION: Uncomplicated chest tube placement as above. Roe Donald MD Chest CT 07/23/16 0000 Signed Impressions: Service Date/Time: Saturday, July 23, 2016 11:08 - CONCLUSION: Moderate right-sided pleural effusion with a suspected large comparative hemorrhage. There is some accompanying atelectasis in the right lower lobe and right middle lobes. Hernandez Koenig MD Objective Remarks GENERAL: This is a well-nourished, well-developed patient, in no apparent distress. CARDIOVASCULAR: Regular rate and regular rhythm without murmurs, gallops, or rubs. RESPIRATORY: better air entry right lung- chest tube in place. GASTROINTESTINAL: Abdomen soft, non-tender, nondistended. Normal, active bowel sounds MUSCULOSKELETAL: Extremities without clubbing, cyanosis, or edema. NEURO: Alert & Oriented x4 to person, place, time, situation. Moves all ext x4 Procedures chest tube placement. Medications and IVs Current Medications Sodium Chloride (NS Flush) 2 ml UNSCH PRN IV FLUSH FLUSH AFTER USING IV ACCESS ; Start 07/22/16 at 07:30 Sodium Chloride (NS Flush) 2 ml BID IV FLUSH Last administered on 07/26/16 09: 00; Start 07/22/16 at 09:00 Acetaminophen (Tylenol) 650 mg Q4H PRN PO FEVER Last administered on 07/23/16 04:23; Start 07/22/16 at 07:30 Ondansetron HCl (Zofran Inj) 4 mg Q6H PRN IVP NAUSEA OR VOMITING; Start at 07:30 Magnesium Hydroxide (Milk Of Magnesia Liq) 30 ml Q12H PRN PO CONSTIPATION Last administered on 07/25/16 15:53; Start 07/22/16 at 07:30 Naloxone HCl (Narcan Inj) 0.4 mg UNSCH PRN IV SEE LABEL COMMENTS; Start at 07:30 Sodium Chloride (NS Flush) 2 ml BID IV FLUSH ; Start 07/22/16 at 09:00; Status UNV Sodium Chloride (NS Flush) 2 ml UNSCH PRN IVF FLUSH AFTER USING IV ACCESS; Start 07/22/16 at 07:30; Status UNV Clonazepam (KlonoPIN) 0.5 mg Q8HR PRN PO Anxiety Last administered on 20:52; Start 07/22/16 at 16:15; Stop 07/23/16 at 07:37; Status DC Amiodarone HCl (Cordarone) 400 mg BID PO Last administered on 07/26/16 09:40; Start 07/22/16 at 21:00 Colchicine (Colchicine) 0.3 mg DAILY PO Last administered on 07/26/16 09:41; Start 07/23/16 at 09:00 Metoprolol Tartrate (Lopressor) 100 mg BID PO Last administered on 07/26/16 09 :40; Start 07/22/16 at 21:00 Miscellaneous (Pill Splitter) 1 ea UNSCH PRN OTHER SEE LABEL COMMENTS; Start at 16:30 Clonazepam (KlonoPIN) 0.25 mg Q8H PRN PO Anxiety Last administered on 22:47; Start 07/23/16 at 07:45 Guaifenesin/ Codeine Phosphate (Robitussin Ac 200-20 Mg/10 ml Liq) 10 ml Q6H PRN PO Cough Last administered on 07/26/16 04:19; Start 07/23/16 at 09:30 Furosemide (Lasix Inj) 20 mg BID@09,18 IV PUSH Last administered on 07/24/16 10:13; Start 07/23/16 at 18:00; Stop 07/24/16 at 17:59; Status DC Furosemide (Lasix Inj) 20 mg ONCE ONCE IV PUSH Last administered on 07/23/16 11:45; Start 07/23/16 at 11:00; Stop 07/23/16 at 11:01; Status DC Lidocaine/ Epinephrine (Xylocaine-Epi 1%-1:100,000 Inj) 20 ml STK-MED ONCE .ROUTE Last administered on 07/24/16 16:58; Start 07/24/16 at 16:58; Stop at 16:59; Status DC Fentanyl Citrate (fentaNYL INJ) 250 mcg STK-MED ONCE .ROUTE Last administered on 07/24/16 17:00; Start 07/24/16 at 17:00; Stop 07/24/16 at 17:01; Status DC Lorazepam (Ativan Inj) 2 mg STK-MED ONCE .ROUTE Last administered on 07/24/16 17:00; Start 07/24/16 at 17:00; Stop 07/24/16 at 17:01; Status DC Acetaminophen/ Hydrocodone Bitart ([place] 5-325 Mg) 1 tab Q4H PRN PO PAIN < 5 Last administered on 07/26/16 09:41; Start 07/25/16 at 08:45 Acetaminophen/ Hydrocodone Bitart ([place] 5-325 Mg) 2 tab Q4H PRN PO PAIN 5 OR GREATER Last administered on 07/26/16t 04:20; Start 07/25/16 at 08:45 Hydromorphone HCl (Dilaudid Pf Inj) 0.2 mg Q4H PRN IV PUSH BREAKTHROUGH PAIN; Start 07/25/16 at 08:45 Docusate Sodium (Colace) 100 mg BID PRN PO CONSTIPATION; Start 07/25/16 at 08: 45 A/P Assessment and Plan Ms. Gracia is a pleasant 76-year-old female with a history of atrial fibrillation and recent ablation done at [facility] in [facility] who presented to the emergency department on 07/22/2016 due to bleeding from the chest tube insertion site. During ablation procedure, patient ended up with a hemopneumothorax requiring chest tube insertion. She was discharged on 07/21/2016. - Meagan-procedure complication of atrial fibrillation ablation with right-sided hemothorax -chest CT with moderate right-sided pleural effusion with a suspected large comparative hemorrhage. - Status post chest tube removal and discharged from the hospital on 2016. -s/p chest tube placement on 07/24/16 -continue with pain control; start on [place] and dilaudid IV for breakthrough pain. - management per vascular surgery and IR. - Atrial fibrillation -continue Amiodarone and Metoprolol - Currently Apixaban is on hold. Last dose was given prior to her discharge from [place] on Sunday07/20/2016. -constipation;resolved- laxatives as needed. DVT prophylaxis with SCD's Bandar Roldan MD Jul 26, 2016 10:14
--- NOTE | 2016-07-26 13:41 | RADRPT ---
EXAM DATE/TIME: 07/26/2016 12:39 [facility] COMPARISON: CT THORAX W/O CONTRAST, July 23, 2016, 11:08. INDICATIONS : Evaluate residual hemothorax. Patient is status post chest tube drainage. RADIATION DOSE: 4.62 CTDIvol (mGy) MEDICAL HISTORY : Cardiovascular disease. a-fib SURGICAL HISTORY : heart surgery ENCOUNTER: Subsequent ACUITY: 4 - 6 days PAIN SCALE: 7/10 LOCATION: chest TECHNIQUE: Volumetric scanning of the chest was performed. Using automated exposure control and adjustment of t he mA and/or kV according to patient size, radiation dose was kept as low as reasonably achievable to obtain optimal diagnostic quality images. FINDINGS: LUNGS: There is no pneumothorax. There is mild consolidation in the posterior medial right lower lobe. No c oncerning pulmonary nodule is visualized. PLEURAE: There has been a mild interval decrease in the right-sided pleural fluid and higher density hemorrhag e. A moderate residual remains greatest in the posterior lung base. There is been interval placement of a percutaneous drainage catheter the pigtail loop the posterior inferior portion of the collection . Fluid is noted in the right fissure. There is a minimal left effusion. MEDIASTINUM: The heart and great vessels demonstrate no acute abnormality. There is no mediastinal or hilar lymph adenopathy. AXILLAE: Within normal limits. No lymphadenopathy. MUSCULOSKELETAL: Within normal limits for patient age. MISCELLANEOUS: The visualized upper abdominal organs demonstrate no acute abnormality. Partially calcified breast im plants are again noted. CONCLUSION: 1. Interval placement of percutaneous right pigtail drainage catheter with mild decrease in the size of the right pleural effusion and higher density hemorrhage. There is a moderate residual. 2. Minimal left effusion. Chriss Smith MD on July 26, 2016 at 13:33 Board Certified Radiologist. This report was verified electronically.
--- NOTE | 2016-07-26 14:20 | PD.CAR.PN ---
CVT Progress Note Subjective/Hospital Course: Referral received and discussed with Dr. Bertrand Full consult to follow Rosemary Rai 07/26/15 Patient underwent yesterday successful placement of a chest tube drain. Drain about 600 cc of old blood We'll check chest x-ray tomorrow and all things equal in a few days the drain will come out If patient still has retained hemothorax eventually required thoracoscopy but I don't think this will be the case Will continue to follow 07/26/16 Despite placement of the drain patient has a organized hemothorax with a moderate size hematoma in the right chest lying the surface of the diaphragm and posterior sulcus At this point the cystic gelatinous material and will not come out through the chest drain If left unattended this will either entrap the lung or get infected and constituted to empyema of the chest Therefore it is imperative that this be removed and I'll schedule patient for thoracoscopy tomorrow Risks and benefits have been explained Objective: Vital Signs Date Time Temp Pulse Resp B/P Pulse Ox O2 Delivery O2 Flow Rate FiO2 07/26/16 12:56 92 07/26/16 12:00 96.5 75 20 92/58 90 07/26/16 08:00 97.6 77 20 125/60 90 07/26/16 05:51 97.2 91 20 91/77 99 07/26/16 01:15 95.9 92 20 101/64 92 07/25/16 20:00 96.9 99 20 99/62 96 07/25/16 20:00 88 07/25/16 17:57 95 21 07/25/16 16:40 95.5 92 16 100/65 95 07/25/16 14:49 16 Result Diagram: 07/25/16 0653 07/23/16 0713 Tam Escobedo MD Jul 26, 2016 14:20
[2016-07-26] MEDS: clonazePAM 0.5 MG TAB PO PRN (21:32)
[2016-07-27] VITALS (8 sets, daily range): BP systolic 100–156; BP diastolic 64–76; PULSE 77–103; RESP 17–18; TEMP 95.2–98.9; O2SAT 91–99
[2016-07-27] MEDS: ACETAMINOPHEN/HYDROcodone 325 MG/5 MG TAB PO PRN ×2 (02:24→06:48)
[2016-07-27] MEDS: guaiFENesin/CODEINE SYRUP 200 MG/20 MG/10 ML CUP PO PRN ×2 (02:24→22:04)
[2016-07-27] MEDS: COLCHICINE 0.6 MG TAB PO SCH (08:44)
[2016-07-27] MEDS: METOPROLOL TARTRATE 100 MG TAB PO SCH ×2 (08:44→21:12)
[2016-07-27] MEDS: AMIODARONE 200 MG TAB PO SCH ×2 (08:46→21:12)
[2016-07-27] MEDS: SODIUM CHLORIDE 0.9% FLUSH 10 ML FLUSH IV FLUSH SCH ×2 (08:46→21:48)
[2016-07-27] MEDS ORDERED: BUPIVACAINE/EPINEPHRINE 0.25% PF 30 ML VIAL ONE (11:41)
[2016-07-27] MEDS ORDERED: GENTAMICIN SULFATE 80 MG/2 ML VIAL ONE (11:41)
[2016-07-27] MEDS ORDERED: BUPIVACAINE HCL PF 0.25% 30 ML VIAL ONE (11:41)
[2016-07-27] MEDS ORDERED: NORMOSOL R INJ 1,000 ML IV ONE (12:00)
[2016-07-27] MEDS ORDERED: ONDANSETRON HCL 4 MG/2 ML VIAL IV PUSH ONE (12:00)
[2016-07-27] MEDS ORDERED: NEOSTIGMINE 3 MG/3 ML SYR IV ONE (12:00)
[2016-07-27] MEDS ORDERED: PROPOFOL 200 MG/20 ML AMP IV ONE (12:00)
[2016-07-27] MEDS ORDERED: PHENYLEPH/NS 1000 MCG/10 ML SYR IV ONE (12:00)
[2016-07-27] MEDS: ceFAZolin 2 GM PREMIX 50 ML IV SCH ×2 (12:03→12:06)
--- NOTE | 2016-07-27 12:30 | HHI.PR ---
Subjective Remarks in no acute distress. pain is fairly controlled. no new complaints. Objective Vitals Vital Signs Date Time Temp Pulse Resp B/P Pulse Ox O2 Delivery O2 Flow Rate FiO2 07/27/16 08:46 95.2 89 18 111/66 98 07/27/16 04:00 96.3 99 18 104/65 94 07/27/16 00:00 96.5 103 18 100/64 91 07/26/16 21:45 93 21 07/26/16 19:00 86 07/26/16 16:00 98.0 92 20 133/79 93 07/26/16 16:00 98.5 86 18 91/57 91 07/26/16 12:56 92 I/O 07/26/16 07/26/16 07/26/16 07/27/16 07/27/16 07/27/16 07:00 15:00 23:00 07:00 15:00 23:00 Output Total 100 ml 25 ml Balance -100 ml -25 ml Output Chest Tube Drainage Total 100 ml 25 ml # Voids 2 1 4 # Bowel Movements 1 1 Result Diagram: 07/25/16 0653 07/23/16 0713 Imaging Last Impressions Chest X-Ray 07/26/16 0600 Signed Impressions: Service Date/Time: Tuesday, July 26, 2016 06:12 - CONCLUSION: 1. Right chest tube is present in the inferior hemithorax and no pneumothorax is visualized. Pleural-based opacity/effusion remains present but decreased and there is associated adjacent atelectasis and/or consolidation. 2. There is mild consolidation in the right upper lobe. eHrnandez Anthony MD Chest CT 07/26/16 0000 Signed Impressions: Service Date/Time: Tuesday, July 26, 2016 12:39 - CONCLUSION: 1. Interval placement of percutaneous right pigtail drainage catheter with mild decrease in the size of the right pleural effusion and higher density hemorrhage. There is a moderate residual. 2. Minimal left effusion. Chriss Smith MD Chest Tube Insertion 07/24/16 0000 Signed Impressions: Service Date/Time: Sunday, July 24, 2016 17:27 - CONCLUSION: Uncomplicated chest tube placement as above. Roe Donald MD Objective Remarks GENERAL: This is a well-nourished, well-developed patient, in no apparent distress. CARDIOVASCULAR: Regular rate and regular rhythm without murmurs, gallops, or rubs. RESPIRATORY: bilateral air entry present. GASTROINTESTINAL: Abdomen soft, non-tender, nondistended. Normal, active bowel sounds MUSCULOSKELETAL: Extremities without clubbing, cyanosis, or edema. NEURO: Alert & Oriented x4 to person, place, time, situation. Moves all ext x4 Procedures chest tube placement. Medications and IVs Current Medications Sodium Chloride (NS Flush) 2 ml UNSCH PRN IV FLUSH FLUSH AFTER USING IV ACCESS ; Start 07/22/16 at 07:30 Sodium Chloride (NS Flush) 2 ml BID IV FLUSH Last administered on 07/27/16 08: 46; Start 07/22/16 at 09:00 Acetaminophen (Tylenol) 650 mg Q4H PRN PO FEVER Last administered on 07/23/16 04:23; Start 07/22/16 at 07:30 Ondansetron HCl (Zofran Inj) 4 mg Q6H PRN IVP NAUSEA OR VOMITING; Start at 07:30 Magnesium Hydroxide (Milk Of Page[place] Peoplebrian Liq) 30 ml Q12H PRN PO CONSTIPATION Last administered on 07/25/16 15:53; Start 07/22/16 at 07:30 Naloxone HCl (Narcan Inj) 0.4 mg UNSCH PRN IV SEE LABEL COMMENTS; Start at 07:30 Sodium Chloride (NS Flush) 2 ml BID IV FLUSH ; Start 07/22/16 at 09:00; Status UNV Sodium Chloride (NS Flush) 2 ml UNSCH PRN IVF FLUSH AFTER USING IV ACCESS; Start 07/22/16 at 07:30; Status UNV Clonazepam (KlonoPIN) 0.5 mg Q8HR PRN PO Anxiety Last administered on 20:52; Start 07/22/16 at 16:15; Stop 07/23/16 at 07:37; Status DC Amiodarone HCl (Cordarone) 400 mg BID PO Last administered on 07/27/16 08:46; Start 07/22/16 at 21:00 Colchicine (Colchicine) 0.3 mg DAILY PO Last administered on 07/27/16 08:44; Start 07/23/16 at 09:00 Metoprolol Tartrate (Lopressor) 100 mg BID PO Last administered on 07/27/16 08 :44; Start 07/22/16 at 21:00 Miscellaneous (Pill Splitter) 1 ea UNSCH PRN OTHER SEE LABEL COMMENTS; Start at 16:30 Clonazepam (KlonoPIN) 0.25 mg Q8H PRN PO Anxiety Last administered on 21:32; Start 07/23/16 at 07:45 Guaifenesin/ Codeine Phosphate (Robitussin Ac 200-20 Mg/10 ml Liq) 10 ml Q6H PRN PO Cough Last administered on 07/27/16 02:24; Start 07/23/16 at 09:30 Furosemide (Lasix Inj) 20 mg BID@,18 IV PUSH Last administered on 07/24/16 10:13; Start 07/23/16 at 18:00; Stop 07/24/16 at 17:59; Status DC Furosemide (Lasix Inj) 20 mg ONCE ONCE IV PUSH Last administered on 07/23/16 11:45; Start 07/23/16 at 11:00; Stop 07/23/16 at 11:01; Status DC Lidocaine/ Epinephrine (Xylocaine-Epi 1%-1:100,000 Inj) 20 ml STK-MED ONCE .ROUTE Last administered on 07/24/16 16:58; Start 07/24/16 at 16:58; Stop at 16:59; Status DC Fentanyl Citrate (fentaNYL INJ) 250 mcg STK-MED ONCE .ROUTE Last administered on 07/24/16 17:00; Start 07/24/16 at 17:00; Stop 07/24/16 at 17:01; Status DC Lorazepam (Ativan Inj) 2 mg STK-MED ONCE .ROUTE Last administered on 07/24/16 17:00; Start 07/24/16 at 17:00; Stop 07/24/16 at 17:01; Status DC Acetaminophen/ Hydrocodone Bitart ([place] 5-325 Mg) 1 tab Q4H PRN PO PAIN < 5 Last administered on 07/26/16 09:41; Start 07/25/16 at 08:45 Acetaminophen/ Hydrocodone Bitart ([place] 5-325 Mg) 2 tab Q4H PRN PO PAIN 5 OR GREATER Last administered on 07/27/16 06:48; Start 07/25/16 at 08:45 Hydromorphone HCl (Dilaudid Pf Inj) 0.2 mg Q4H PRN IV PUSH BREAKTHROUGH PAIN Last administered on 07/26/16 10:27; Start 07/25/16 at 08:45 Docusate Sodium 100 mg 100 mg BID PRN PO CONSTIPATION; Start 07/25/16 at 08:45 Cefazolin Sodium/ Dextrose (Ancef 2 Gm Premix) 50 ml @ 100 mls/hr [employer]IT DIRECTOR IV Last administered on 07/27/16 12:03; Start 07/26/16 at 14:30; Stop 07/29/16 at 14:29 Bupivacaine HCl/ Epinephrine Bitart (Marcaine-Epi Pf 0.25% Inj) 30 ml STK-MED ONCE .ROUTE ; Start 07/27/16 at 11:41; Stop 07/27/16 at 11:42; Status DC Bupivacaine HCl (Marcaine Pf 0.25% Inj) 30 ml STK-MED ONCE .ROUTE ; Start at 11:41; Stop 07/27/16 at 11:42; Status DC Gentamicin Sulfate (Gentamicin Inj) 240 mg STK-MED ONCE .ROUTE ; Start 07/27/16 at 11:41; Stop 07/27/16 at 11:42; Status DC A/P Assessment and Plan Ms. Gracia is a pleasant 76-year-old female with a history of atrial fibrillation and recent ablation done at [facility] in [facility] who presented to the emergency department on 07/22/2016 due to bleeding from the chest tube insertion site. During ablation procedure, patient ended up with a hemopneumothorax requiring chest tube insertion. She was discharged on 07/21/2016. - Meagan-procedure complication of atrial fibrillation ablation with right-sided hemothorax -initial chest CT with moderate right-sided pleural effusion with a suspected large comparative hemorrhage. - Status post chest tube removal and discharged from the hospital on 2016. -s/p chest tube placement on 07/24/16 -chest CT was repeated on 07/26 with mild decrease in the size of the right pleural effusion and higher density hemorrhage and moderate residual with minimal left effusion. -continue with pain control; start on [place] and dilaudid IV for breakthrough pain. -vascular surgery follow-up appreciated and plan for thoracoscopy today. - Atrial fibrillation -continue Amiodarone and Metoprolol - Currently Apixaban is on hold. Last dose was given prior to her discharge from [place] on Sunday07/20/2016. -constipation;resolved- laxatives as needed. DVT prophylaxis with SCD's Bandar Roldan MD Jul 27, 2016 12:30
[2016-07-27] MEDS ORDERED: FAMOTIDINE 20 MG/2 ML VIAL ONE (12:51)
[2016-07-27] MEDS ORDERED: MIDAZOLAM HCL 2 MG/2 ML VIAL ONE (12:52)
[2016-07-27] MEDS ORDERED: ACETAMINOPHEN 1000 MG/100 ML VIAL IV ONE (12:52)
[2016-07-27] MEDS ORDERED: DEXAMETHASONE SOD PHOS 4 MG/ML VIAL ONE (12:52)
[2016-07-27] MEDS ORDERED: STERILE TALC 5 GM VIAL I-CAVITARY ONE (14:05)
[2016-07-27] MEDS ORDERED: *HYDROmorphone PF 1 MG VIAL PERIprocedural Use ONLY ONE ×3 (15:22→15:58)
[2016-07-27] MEDS ORDERED: fentaNYL CITRATE 250 MCG/5 ML AMP ONE (15:23)
[2016-07-27] MEDS ORDERED: DO NOT ADM ANY ANTICOAGULANT DRUGS PRN (15:45)
[2016-07-27] MEDS ORDERED: NALOXONE HCL 0.4 MG/ML AMP IV PRN (16:00)
[2016-07-27] MEDS ORDERED: MORPHINE SULFATE 30 MG/30 ML PCA IV SCH (16:00)
[2016-07-27] MEDS ORDERED: PCA - TOTAL MG MORPHINE DELIVERED PER SHIFT SCH (16:00)
--- NOTE | 2016-07-27 16:05 | RADRPT ---
EXAM DATE/TIME: 07/27/2016 15:23 [facility] COMPARISON: CHEST SINGLE AP, July 26, 2016, 6:12. INDICATIONS : Post right side chest tube placement. MEDICAL HISTORY : Cardiovascular disease. SURGICAL HISTORY : None. ENCOUNTER: Initial ACUITY: 4 - 6 days PAIN SCORE: 10/10 LOCATION: Bilateral chest FINDINGS: Basilar AP erect portable view of the chest was obtained and demonstrates interval removal of the pre viously noted small bore right-sided chest tube with placement of 2 larger right-sided chest tubes on e with tip in the medial lung apex and the other tip object over the lower costophrenic angle. There is patchy opacity at both lung bases right greater than left. The previous noted small right effusion has decreased. The heart size is at the upper limits of normal. The study remains Midinspiratory. Th ere are multiple overlying. CONCLUSION: 1. Interval placement of 2 large bore chest tubes with no pneumothorax. 2. No decrease in small right effusion. 3. Abnormal patchy opacity remains at the lung bases right greater than left. Chriss Smith MD on July 27, 2016 at 16:01 Board Certified Radiologist. This report was verified electronically.
--- NOTE | 2016-07-27 17:56 | PD.CONS ---
HPI Service Critical Care Medicine Consult Requested By Dr. Escobedo Primary Care Physician No Primary Care Physician History of Present Illness This is a 76-year-old female status post cardiac ablation at [facility] earlier this month. The patient was placed on Crixivan and subsequently had a complication of a hemo-pneumothorax and required chest tube insertion. She was discharged on 07/21 with subsequent bleeding from chest tube site and presented to [facility] on 07/22 with excessive bleeding emanating from former chest tube site. Upon presentation the patient received on 07/24 a Pleurex drain via Interventional Radiology with 600 cc output. The patient was noted to have a retained hemothorax of moderate size with subsequent lung entrapment. CVT surgery was consults it and the patient underwent a VATS procedure with Dr. Escobedo. Critical Care medicine was consulted for management. Review of Systems Except as stated in HPI: all other systems reviewed are Neg PFSH Past Family Social History Past Medical History Arthritis, atrial fibrillation Past Surgical History Bilateral postsurgery, knee scope Reported Medications Amiodarone (Amiodarone HCl) 200 Mg Tab 200 Mg PO BID Metoprolol Tartrate 100 Mg Tab 100 Mg PO BID Colchicine 0.6 Mg Cap 0.6 Mg PO DAILY Eliquis (Apixaban) 5 Mg Tab 5 Mg PO BID Allergies: Coded Allergies: No Known Allergies (Verified , 07/22/16) Family History No family history of heart disease. No family history of Alzheimer's or Parkinson's. Past Family Social History Allergies: Coded Allergies: No Known Allergies (Verified , 07/22/16) Physical Exam Vital Signs Vital Signs Date Time Temp Pulse Resp B/P Pulse Ox O2 Delivery O2 Flow Rate FiO2 07/27/16 16:55 14 07/27/16 13:09 96.9 77 18 108/67 98 07/27/16 09:37 97 Nasal Cannula 21 07/27/16 08:46 95.2 89 18 111/66 98 07/27/16 04:00 96.3 99 18 104/65 94 07/27/16 00:00 96.5 103 18 100/64 91 07/26/16 21:45 93 21 07/26/16 19:00 86 Physical Exam GENERAL: 76-year-old elderly, frail female in moderate distress SKIN: Warm and dry. HEAD: Atraumatic. Normocephalic. EYES: Pupils equal and round. No scleral icterus. No injection or drainage. ENT: No nasal bleeding or discharge. Mucous membranes pink and moist. NECK: Trachea midline. No JVD. CARDIOVASCULAR: Normal rate, regular rhythm. RESPIRATORY: No accessory muscle use. Clear to auscultation. Breath sounds equal bilaterally. Right chest tube, serosanguineous minimal drainage, subcutaneous emphysema with ecchymotic bruising right posterior chest noted. GASTROINTESTINAL: Abdomen soft, non-tender, nondistended. No guarding. MUSCULOSKELETAL: Extremities without clubbing, cyanosis, or edema. No obvious deformities. NEUROLOGICAL: Awake and alert. RASS 0. No gross focal/sensory deficits. Follows commands in all 4 extremities. Laboratory Laboratory Tests Test 07/26/16 21:24 Blood Type A POSITIVE Antibody Screen NEGATIVE Last Impressions Chest X-Ray 07/27/16 0000 Signed Impressions: Service Date/Time: July 15:23 - CONCLUSION: 1. Interval placement of 2 large bore chest tubes with no pneumothorax. 2. No decrease in small right effusion. 3. Abnormal patchy opacity remains at the lung bases right greater than left. Chriss Smith MD Chest CT 07/26/16 0000 Signed Impressions: Service Date/Time: Tuesday, July 26, 2016 12:39 - CONCLUSION: 1. Interval placement of percutaneous right pigtail drainage catheter with mild decrease in the size of the right pleural effusion and higher density hemorrhage. There is a moderate residual. 2. Minimal left effusion. Chriss Smith MD Chest Tube Insertion 07/24/16 0000 Signed Impressions: Service Date/Time: Sunday, July 24, 2016 17:27 - CONCLUSION: Uncomplicated chest tube placement as above. Roe Donald MD Laboratory Tests Test 07/26/16 21:24 Blood Type A POSITIVE Antibody Screen NEGATIVE Result Diagram: 07/25/16 0653 07/23/16 0713 Imaging Last 24 hours Impressions Chest X-Ray 07/27/16 0000 Signed Impressions: Service Date/Time: July 15:23 - CONCLUSION: 1. Interval placement of 2 large bore chest tubes with no pneumothorax. 2. No decrease in small right effusion. 3. Abnormal patchy opacity remains at the lung bases right greater than left. Chriss Smith MD Assessment and Plan Assessment and Plan Neurologic: Postoperative pain Neurochecks per ICU protocol Maintain sleep hygiene minimal disruptions at night, stimulation during the day to avoid ICU delirium Multimodal analgesia-Ofirmev 1 g every 6 hours 24 hours, consider ketorolac 30 mg every 12 hours 3 days D/C CONTACT CLERK , provide fentanyl 50mcgs every 2 hours PRN -monitor respiratory status Respiratory: Hemopneumothorax with lung entrapment Status post right VATS with chest tube placement POD #0 Maintain chest tubes to suction 20 cm H20 Monitor and record chest tube output hourly Maintain O2 sat greater than 92% currently on O2 at 3 L wean O2 as tolerated Begin incentive spirometry every hour while awake Maintain head of bed greater than 30 Bronchodilators when necessary Cardiovascular: S/P cardiac ablation 07/2016 Cardiology following-Dr. Somers Telemetry NSR Apixiban held Continue amiodarone and metoprolol Maintain MAP greater than 65 mmHg Renal: Maintain Rankin -- Strict I/Os FEN/GI: NS @ 42 cc/hr Obtain BMP Heart healthy diet Bowel regimen Heme/ID: Obtain postop CBC Acetaminophen for temperature greater than 101 Obtain cultures if indicated Endocrine: Glucose monitoring per ICU protocol -- SSI Prophylaxis: GI Prophylaxis Patient does not meet criteria DVT Prophylaxis -- SCDs Lines: Right radial a line 07/27, Peripheral IV's 2 Dispo: This patient remains critically ill with one or more organ systems which are or may become a threat to life. I have spent in excess of 37 minutes discontinuously in the care and management of this patient. This time is exclusive of procedures, and includes, but is not limited to, evaluation of the patient, review of the medical record, discussions with family, consultants, nursing staff, or respiratory therapy, and documentation in the medical record. Code Status Full Discussed Condition With Patient and SERVER SYSTEMS ADMINISTRATOR at bedside. Danica Hummel MD Jul 27, 2016 17:56 Danica Hummel MD Jul 27, 2016 17:56
[2016-07-27] MEDS: ACETAMINOPHEN 325 MG TAB PO PRN ×2 (18:30→18:33)
[2016-07-27] MEDS ORDERED: GLUCAGON 1 MG/ML VIAL OTHER PRN (18:45)
[2016-07-27] MEDS ORDERED: DEXTROSE 50% IN WATER 50 ML VIAL(D50) IV PUSH PRN (18:45)
[2016-07-27] MEDS ORDERED: RESP: ALBUTEROL 2.5 MG/IPRATROPIUM 0.5 MG NEB (PRN) NEB (18:45)
[2016-07-27 18:47] LABS: HEMATOCRIT 31.9 % (35.0-46.0); MEAN CELL VOLUME 95.9 FL (80.0-100.0); MEAN CORPUSCULAR HEMOGLOBIN 30.5 PG (27.0-34.0); MEAN CORPUSCULAR HGB CONC 31.8 % (32.0-36.0); PLATELET COUNT 488 TH/MM3 (150-450); RED BLOOD COUNT 3.33 MIL/MM3 (4.00-5.30); RED CELL DISTRIBUTION WIDTH 13.5 % (11.6-17.2); REVIEW FLAG FINAL; WHITE BLOOD COUNT 12.4 TH/MM3 (4.0-11.0)
[2016-07-27 19:03] LABS: BICARBONATE 24.2 MEQ/L (21.0-32.0); MAGNESIUM 2.4 MG/DL (1.5-2.5); POTASSIUM 4.5 MEQ/L (3.5-5.1)
[2016-07-27] MEDS: INSULIN ASPART SUPPLEMENTAL SCALE SQ SCH (21:00)
[2016-07-27] MEDS: SODIUM CHLOR 0.9% 1000 ML INJ 1,000 ML IV SCH (21:05)
[2016-07-27] MEDS: ACETAMINOPHEN 1000 MG/100 ML VIAL IV SCH (21:12)
[2016-07-27] MEDS: clonazePAM 0.5 MG TAB PO PRN (21:47)
[2016-07-27] MEDS: KETOROLAC TROMETHAMINE 30 MG/ML (IVP) VIAL IV PUSH SCH (23:43)
[2016-07-28] VITALS (9 sets, daily range): BP systolic 90–126; BP diastolic 55–66; PULSE 76–90; RESP 14–26; TEMP 97.4–98; O2SAT 97–100
[2016-07-28] MEDS: ACETAMINOPHEN 1000 MG/100 ML VIAL IV SCH ×3 (03:29→14:00)
--- NOTE | 2016-07-28 05:12 | RADRPT ---
EXAM DATE/TIME: 07/28/2016 03:24 [facility] COMPARISON: CHEST SINGLE AP, July 27, 2016, 15:23. INDICATIONS : Shortness of breath. MEDICAL HISTORY : Cardiovascular disease. SURGICAL HISTORY : None. ENCOUNTER: Subsequent ACUITY: 1 week PAIN SCORE: Non-responsive. LOCATION: Bilateral chest FINDINGS: Bibasilar consolidation and small effusions again noted not significantly changed. 2 right chest tube s remain in place. No pneumothorax seen. Heart size stable, within normal limits. CONCLUSION: No significant change. Hernandez Haro MD on July 28, 2016 at 5:09 Board Certified Radiologist. This report was verified electronically.
[2016-07-28] MEDS: KETOROLAC TROMETHAMINE 30 MG/ML (IVP) VIAL IV PUSH SCH ×4 (05:55→20:43)
[2016-07-28 06:01] LABS: HEMATOCRIT 26.5 % (35.0-46.0); MEAN CELL VOLUME 94.4 FL (80.0-100.0); MEAN CORPUSCULAR HEMOGLOBIN 32.9 PG (27.0-34.0); MEAN CORPUSCULAR HGB CONC 34.9 % (32.0-36.0); PLATELET COUNT 462 TH/MM3 (150-450); RED CELL DISTRIBUTION WIDTH 13.7 % (11.6-17.2); REVIEW FLAG FINAL; WHITE BLOOD COUNT 10.5 TH/MM3 (4.0-11.0)
[2016-07-28] MEDS: INSULIN ASPART SUPPLEMENTAL SCALE SQ SCH ×4 (07:00→20:44)
[2016-07-28] MEDS: AMIODARONE 200 MG TAB PO SCH ×3 (08:05→20:54)
[2016-07-28] MEDS: METOPROLOL TARTRATE 100 MG TAB PO SCH ×3 (08:05→20:54)
[2016-07-28] MEDS: COLCHICINE 0.6 MG TAB PO SCH (08:06)
[2016-07-28] MEDS: SODIUM CHLORIDE 0.9% FLUSH 10 ML FLUSH IV FLUSH SCH ×2 (08:06→20:44)
--- NOTE | 2016-07-28 08:54 | HHI.CCPN ---
Subjective Remarks/Hospital Course This is a 76-year-old female status post cardiac ablation at [facility] earlier this month. The patient was placed on Crixivan and subsequently had a complication of a hemo-pneumothorax and required chest tube insertion. She was discharged on 07/21 with subsequent bleeding from chest tube site and presented to [facility] on 07/22 with excessive bleeding emanating from former chest tube site. Upon presentation the patient received on 07/24 a Pleurex drain via Interventional Radiology with 600 cc output. The patient was noted to have a retained hemothorax of moderate size with subsequent lung entrapment. CVT surgery was consults it and the patient underwent a VATS procedure with Dr. Escobedo. Critical Care medicine was consulted for management. Subjective: 07/28: Tmax 98.9. The patient rested comfortably last night with multimodal pain therapy requiring fentanyl 50 mcgs1 dose. The patient continues to actively perform deep breathing and coughing exercises. Chest tube output overnight is noted to be 100 cc . Chest x-ray this a.m. remains unchanged. Heart healthy diet has been resumed. Subcutaneous emphysema posterior chest tube site, resolved. Objective Vital Signs Date Time Temp Pulse Resp B/P Pulse Ox O2 Delivery O2 Flow Rate FiO2 07/28/16 06:00 86 07/28/16 04:00 98.0 18 118/57 100 07/27/16 22:44 Nasal Cannula 3.00 07/27/16 09:37 21 Intake and Output 07/27/16 07/27/16 07/28/16 08:00 16:00 00:00 Intake Total 1400 ml 719 ml Output Total 25 ml 650 ml 400 ml Balance -25 ml 750 ml 319 ml Result Diagram: 07/28/16 0510 07/27/16 1828 Imaging Last 24 hours Impressions Chest X-Ray 07/27/16 0000 Signed Impressions: Service Date/Time: July 15:23 - CONCLUSION: 1. Interval placement of 2 large bore chest tubes with no pneumothorax. 2. No decrease in small right effusion. 3. Abnormal patchy opacity remains at the lung bases right greater than left. Chriss Smith MD Objective Remarks GENERAL: 76-year-old elderly, frail female to male recumbent in bed pleasantly conversant, in no distress. SKIN: Warm and dry. Chest tube site clean dry and intact, small ecchymotic bruising noticed posterior flank area HEAD: Atraumatic. Normocephalic. EYES: Pupils equal and round. No scleral icterus. No injection or drainage. ENT: No nasal bleeding or discharge. Mucous membranes pink and moist. NECK: Trachea midline. No JVD. CARDIOVASCULAR: Normal rate, regular rhythm. RESPIRATORY: No accessory muscle use. Clear to auscultation. Breath sounds equal bilaterally. Right chest tube, serosanguineous minimal drainage. GASTROINTESTINAL: Abdomen soft, non-tender, nondistended. No guarding. MUSCULOSKELETAL: Extremities without clubbing, cyanosis, or edema. No obvious deformities. NEUROLOGICAL: Awake and alert. RASS 0. No gross focal/sensory deficits. Follows commands in all 4 extremities. A/P Assessment and Plan Neurologic: Postoperative pain Neurochecks per ICU protocol Maintain sleep hygiene minimal disruptions at night, stimulation during the day to avoid ICU delirium Multimodal analgesia-Ofirmev 1 g every 6 hours 24 hours, consider ketorolac 30 mg every 12 hours 3 days Fentanyl 50mcgs every 2 hours PRN -monitor respiratory status, Oxycodone PRN if needed Respiratory: Hemopneumothorax with lung entrapment Status post right VATS with chest tube placement POD #1 Maintain chest tubes to suction 20 cm H20, no leak Monitor and record chest tube output hourly Maintain O2 sat greater than 92% currently on O2 at 3 L wean O2 as tolerated Incentive spirometry every hour while awake, currently 1000 cc /breath Maintain head of bed greater than 30 Bronchodilators when necessary Cardiovascular: S/P cardiac ablation 07/2016 Cardiology following-Dr. Somers Telemetry NSR Apixiban held Continue amiodarone and metoprolol Maintain MAP greater than 65 mmHg D/C arterial line Renal: D/C Rankin -- Strict I/Os FEN/GI: Hyponatremia Na level 133 today, from 139 most likely secondary to IV hypotonic solutions in OR (LR) Heplock IV Obtain BMP Heart healthy diet Bowel regimen Heme/ID: CBC stable Acetaminophen for temperature greater than 101 Obtain cultures if indicated Endocrine: Glucose monitoring per ICU protocol -- SSI Prophylaxis: GI Prophylaxis Patient does not meet criteria DVT Prophylaxis -- SCDs Lines: Peripheral IV's 2 Dispo: Level 3 Discussed with TRAVELING AUDITOR at bedside and patient. Plan for transfer to [facility] in a.m. Physician Danica Palacios MD Jul 28, 2016 08:54 Danica Hummel MD Jul 28, 2016 08:54
--- NOTE | 2016-07-28 11:27 | PD.CAR.PN ---
CVT Progress Note Subjective/Hospital Course: Referral received and discussed with Dr. Bertrand Full consult to follow Rosemary Rai 07/26/15 Patient underwent yesterday successful placement of a chest tube drain. Drain about 600 cc of old blood We'll check chest x-ray tomorrow and all things equal in a few days the drain will come out If patient still has retained hemothorax eventually required thoracoscopy but I don't think this will be the case Will continue to follow 07/26/16 Despite placement of the drain patient has a organized hemothorax with a moderate size hematoma in the right chest lying the surface of the diaphragm and posterior sulcus At this point the cystic gelatinous material and will not come out through the chest drain If left unattended this will either entrap the lung or get infected and constituted to empyema of the chest Therefore it is imperative that this be removed and I'll schedule patient for thoracoscopy tomorrow Risks and benefits have been explained 07/28/16 Patient status post VATS with evacuation of hematoma over the right chest and release of the right lung Chest tube drainage is serosanguineous and patient has a tiny leak Patient can be transferred to floor at this point and does not require ICU care anymore Will likely remove the basal chest tube on Sunday and then later on the apical one on Sunday Help from Dr. Danica Hummel is greatly appreciated as patient is now in the ICU Objective: Vital Signs Date Time Temp Pulse Resp B/P Pulse Ox O2 Delivery O2 Flow Rate FiO2 07/28/16 11:08 22 07/28/16 10:00 78 07/28/16 08:00 82 07/28/16 08:00 97.7 78 21 126/63 100 07/28/16 06:00 86 07/28/16 04:00 98.0 86 18 118/57 100 07/28/16 04:00 86 07/28/16 02:00 80 07/28/16 00:00 90 07/28/16 00:00 97.9 90 14 114/66 100 07/27/16 22:44 98 Nasal Cannula 3.00 07/27/16 22:00 86 07/27/16 20:00 07/27/16 20:00 97.8 93 17 114/73 93 Arterial Line 07/27/16 20:00 93 07/27/16 17:30 98.9 87 13 111/64 97 Nasal Cannula 3 118/53 4/27/17 17:00 87 16 110/59 97 Nasal Cannula 3 115/53 07/27/16 16:55 14 07/27/16 16:30 86 17 97 Nasal Cannula 3 121/52 07/27/16 16:15 87 26 122/74 97 Nasal Cannula 3 133/61 07/27/16 16:00 84 26 123/69 97 Nasal Cannula 3 132/60 07/27/16 15:45 96 26 98 Nasal Cannula 3 131/57 07/27/16 15:30 85 27 110/58 95 Nasal Cannula 3 119/50 07/27/16 15:15 84 27 131/83 100 Nasal Cannula 3 07/27/16 15:14 98.4 84 29 130/83 100 Nasal Cannula 3 137/61 07/27/16 13:09 96.9 77 18 108/67 98 Labs: Laboratory Tests Test 07/28/16 05:10 White Blood Count 10.5 TH/MM3 (4.0-11.0) Red Blood Count 2.80 MIL/MM3 (4.00-5.30) Hemoglobin 9.2 GM/DL (11.6-15.3) Hematocrit 26.5 % (35.0-46.0) Mean Corpuscular Volume 94.4 FL (80.0-100.0) Mean Corpuscular Hemoglobin 32.9 PG (27.0-34.0) Mean Corpuscular Hemoglobin 34.9 % Concent (32.0-36.0) Red Cell Distribution Width 13.7 % (11.6-17.2) Platelet Count 462 TH/MM3 (150-450) Mean Platelet Volume 7.2 FL (7.0-11.0) Result Diagram: 07/28/16 0510 07/27/16 1828 Tam Escobedo MD Jul 28, 2016 11:27
[2016-07-28] MEDS: guaiFENesin/CODEINE SYRUP 200 MG/20 MG/10 ML CUP PO PRN ×2 (16:44→22:51)
[2016-07-28] MEDS: ACETAMINOPHEN 325 MG TAB PO PRN (16:44)
[2016-07-28] MEDS: SODIUM CHLOR 0.9% 1000 ML INJ 1,000 ML IV SCH (18:19)
[2016-07-28] MEDS: MAGNESIUM HYDROXIDE SUSP 30 ML CUP PO PRN (20:43)
[2016-07-28] MEDS: clonazePAM 0.5 MG TAB PO PRN (20:46)
[2016-07-29 00:13] VITALS: BP 97/61; PULSE 80; RESP 18; TEMP 96; O2SAT 97
[2016-07-29 04:00] VITALS: BP 118/77; PULSE 98; RESP 18; TEMP 96.2; O2SAT 97
[2016-07-29] MEDS: KETOROLAC TROMETHAMINE 30 MG/ML (IVP) VIAL IV PUSH SCH ×4 (04:07→22:14)
[2016-07-29] MEDS: INSULIN ASPART SUPPLEMENTAL SCALE SQ SCH ×4 (06:33→20:52)
[2016-07-29 08:00] VITALS: BP 121/73; PULSE 84; RESP 16; TEMP 96.8; O2SAT 98
--- NOTE | 2016-07-29 09:35 | HHI.PR ---
Subjective Remarks Tmax 98.0. Resting comfortably. Required Roxicodone for pain control/anxiety when chest tube pulled today. Still with [address] The patient continues to actively perform deep breathing and coughing exercises. Using Inspiratory spirometer at bedside once per hour. Chest tube output overnight 170 cc. Tolerating heart healthy diet. Denies N/V/D/C. Denies CP/SOB. Objective Vital Signs Date Time Temp Pulse Resp B/P Pulse Ox O2 Delivery O2 Flow Rate FiO2 07/29/16 04:00 96.2 98 18 118/77 97 07/29/16 00:13 96.0 80 18 97/61 97 07/28/16 16:00 97.4 76 18 104/64 98 07/28/16 13:33 98 07/28/16 12:00 97.9 77 26 90/55 97 07/28/16 12:00 77 07/28/16 11:08 22 07/28/16 10:00 78 I/O 07/28/16 07/28/16 07/28/16 07/29/16 07/29/16 07/29/16 07:00 15:00 23:00 07:00 15:00 23:00 Intake Total 769 ml 480 ml Output Total 325 ml 150 ml 20 ml Balance 444 ml 480 ml -150 ml -20 ml Intake Oral 120 ml 480 ml IV Total 649 ml Output Urine Total 225 ml Chest Tube Drainage Total 150 ml 20 ml Drainage Total 100 ml # Voids 2 4 # Bowel Movements 0 0 Result Diagram: 07/28/16 0510 07/27/16 1828 Imaging Last Impressions Chest X-Ray 07/28/16 0600 Signed Impressions: Service Date/Time: Thursday, July 28, 2016 03:24 - CONCLUSION: No significant change. Hernandez Haro MD Chest CT 07/26/16 0000 Signed Impressions: Service Date/Time: Tuesday, July 26, 2016 12:39 - CONCLUSION: 1. Interval placement of percutaneous right pigtail drainage catheter with mild decrease in the size of the right pleural effusion and higher density hemorrhage. There is a moderate residual. 2. Minimal left effusion. Chriss Smith MD Chest Tube Insertion 07/24/16 0000 Signed Impressions: Service Date/Time: Sunday, July 24, 2016 17:27 - CONCLUSION: Uncomplicated chest tube placement as above. Roe Donald MD Objective Remarks GENERAL: 76-year-old elderly, frail female recumbent in bed pleasantly conversant, in no distress. SKIN: Warm and dry. HEAD: Atraumatic. Normocephalic. EYES: Pupils equal and round. No scleral icterus. No injection or drainage. ENT: No nasal bleeding or discharge. Mucous membranes pink and moist. NECK: Trachea midline. CARDIOVASCULAR: Normal rate, regular rhythm. RESPIRATORY: No accessory muscle use. Clear to auscultation anteriorly and on left posteriorly. Right upper posterior lung field with inspiratory wheezing. Breath sounds equal bilaterally. GASTROINTESTINAL: + BS. Abdomen soft, non-tender, nondistended. No guarding. MUSCULOSKELETAL: Extremities without clubbing, cyanosis, or edema. No obvious deformities. NEUROLOGICAL: Awake and alert. No gross focal/sensory deficits. Follows commands in all 4 extremities. PSYCH: pleasant mood and affect. Does not appear anxious A/P Problem List: (1) Atrial fibrillation ICD Code: I48.91 (2) Postprocedural seroma of a respiratory system organ or structure following a respiratory system procedure ICD Code: J95.862 (3) H/O cardiac radiofrequency ablation ICD Code: Z98.890 Assessment and Plan Status post cardiac ablation with development of hemothorax with subsequent lung entrapment. CVT surgery was consulted, now s/p VATS Transferred from Critical Care on 07/29 am to Hospitalist service. Postoperative pain - Roxicodone 5mg PO q6hr PRN - Fentanyl 50mcgs every 2 hours PRN - monitor respiratory status CVT surgery consulted: Hemopneumothorax with lung entrapment Status post right VATS with chest tube placement POD #2 One chest tube removed, still with one in place now on water seal. Maintain O2 sat greater than 92%. Currently on O2 at 3 L, wean O2 as tolerated Incentive spirometry every hour while awake Maintain head of bed greater than 30 Bronchodilators when necessary Plan CVT surgery: Removed one chest tube today, likely second on Sunday or Sunday. Cardiology following: S/P cardiac ablation 07/2016 Telemetry NSR Apixiban held Continue amiodarone and metoprolol Maintain MAP greater than 65 mmHg Heart healthy diet Bowel regimen GI Prophylaxis: none, patient does not meet criteria DVT Prophylaxis: Manuela Deleon MD Jul 29, 2016 09:35 DVT Prophylaxis: Manuela Deleon MD Jul 29, 2016 09:35
[2016-07-29] MEDS: SODIUM CHLORIDE 0.9% FLUSH 10 ML FLUSH IV FLUSH SCH ×2 (09:56→20:51)
[2016-07-29] MEDS: METOPROLOL TARTRATE 100 MG TAB PO SCH ×2 (10:02→20:51)
[2016-07-29] MEDS: COLCHICINE 0.6 MG TAB PO SCH (10:02)
[2016-07-29] MEDS: AMIODARONE 200 MG TAB PO SCH ×2 (10:03→20:51)
--- NOTE | 2016-07-29 11:37 | PD.CAR.PN ---
CVT Progress Note Subjective/Hospital Course: Referral received and discussed with Dr. Bertrand Full consult to follow Rosemary Rai 07/26/15 Patient underwent yesterday successful placement of a chest tube drain. Drain about 600 cc of old blood We'll check chest x-ray tomorrow and all things equal in a few days the drain will come out If patient still has retained hemothorax eventually required thoracoscopy but I don't think this will be the case Will continue to follow 07/26/16 Despite placement of the drain patient has a organized hemothorax with a moderate size hematoma in the right chest lying the surface of the diaphragm and posterior sulcus At this point the cystic gelatinous material and will not come out through the chest drain If left unattended this will either entrap the lung or get infected and constituted to empyema of the chest Therefore it is imperative that this be removed and I'll schedule patient for thoracoscopy tomorrow Risks and benefits have been explained 07/28/16 Patient status post VATS with evacuation of hematoma over the right chest and release of the right lung Chest tube drainage is serosanguineous and patient has a tiny leak Patient can be transferred to floor at this point and does not require ICU care anymore Will likely remove the basal chest tube on Sunday and then later on the apical one on Sunday Help from Dr. Danica Hummel is greatly appreciated as patient is now in the ICU 07/29/16 Lungs are fully inflated and the drainage from the chest tube has now decreased The right lung base is clearing up and diaphragm is visible And loculated hematoma of the chest has not been evacuated and I'm going remove the basal tube today and then apical tube on Sunday Patient doing really well Objective: Vital Signs Date Time Temp Pulse Resp B/P Pulse Ox O2 Delivery O2 Flow Rate FiO2 07/29/16 08:00 96.8 84 16 121/73 98 07/29/16 04:00 96.2 98 18 118/77 97 07/29/16 00:13 96.0 80 18 97/61 97 07/28/16 16:00 97.4 76 18 104/64 98 07/28/16 13:33 98 07/28/16 12:00 97.9 77 26 90/55 97 07/28/16 12:00 77 Result Diagram: 07/28/16 0510 07/27/16 1828 Tam Escobedo MD Jul 29, 2016 11:37
[2016-07-29 12:00] VITALS: BP 115/73; PULSE 80; RESP 16; TEMP 96.3; O2SAT 98
[2016-07-29] MEDS: DOCUSATE SODIUM 50 MG/SENNA 8.6 MG TAB PO SCH (15:15)
[2016-07-29 16:00] VITALS: BP 123/77; PULSE 93; RESP 16; TEMP 96.3; O2SAT 100
[2016-07-29] MEDS: clonazePAM 0.5 MG TAB PO PRN (17:50)
[2016-07-29] MEDS: guaiFENesin/CODEINE SYRUP 200 MG/20 MG/10 ML CUP PO PRN ×2 (17:50→23:53)
[2016-07-29] MEDS: SODIUM CHLOR 0.9% 1000 ML INJ 1,000 ML IV SCH (18:08)
[2016-07-29 19:15] VITALS: BP 120/80; PULSE 95; RESP 18; TEMP 96.3; O2SAT 100
[2016-07-30] VITALS (8 sets, daily range): BP systolic 106–133; BP diastolic 55–76; PULSE 79–91; RESP 16–18; TEMP 96.4–98.2; O2SAT 98–100
[2016-07-30] MEDS: KETOROLAC TROMETHAMINE 30 MG/ML (IVP) VIAL IV PUSH SCH ×3 (04:36→15:41)
[2016-07-30 05:49] LABS: AUTOMATED NEUTROPHIL # 5.2 TH/MM3 (1.8-7.7); BASOPHIL % 0.4 % (0.0-2.0); EOSINOPHIL # 0.5 TH/MM3 (0-0.4); EOSINOPHIL % 6.3 % (0.0-4.0); HEMATOCRIT 26.3 % (35.0-46.0); HEMO FLAGS DIFF FINAL; LYMPH % 16.8 % (9.0-44.0); LYMPHOCYTE # 1.3 TH/MM3 (1.0-4.8); MEAN CELL VOLUME 92.5 FL (80.0-100.0); MEAN CORPUSCULAR HEMOGLOBIN 32.1 PG (27.0-34.0); MEAN CORPUSCULAR HGB CONC 34.7 % (32.0-36.0); MONO % 10.6 % (0.0-8.0); NEUT % 65.9 % (16.0-70.0); PLATELET COUNT 495 TH/MM3 (150-450); RED BLOOD COUNT 2.85 MIL/MM3 (4.00-5.30); RED CELL DISTRIBUTION WIDTH 13.7 % (11.6-17.2); WHITE BLOOD COUNT 7.9 TH/MM3 (4.0-11.0)
[2016-07-30 06:16] LABS: BICARBONATE 24.8 MEQ/L (21.0-32.0); POTASSIUM 4.4 MEQ/L (3.5-5.1)
--- NOTE | 2016-07-30 06:19 | MP ---
cc: TAM CRONIN DATE OF SURGERY: 07/27/2016 PREOPERATIVE DIAGNOSIS: Right retained hemothorax entrapment of the right lung. POSTOPERATIVE DIAGNOSIS: Right retained hemothorax entrapment of the right lung. OPERATIVE PROCEDURE Video-assisted thoracoscopy, evacuation of the posterior hematoma and release of the lung. SURGEON: Dr. Cronin. ANESTHESIA General. ESTIMATED BLOOD LOSS: About 20 cc. Evacuation about 600 cc of old coagulated blood. PROCEDURE The patient is prepped and draped in the usual fashion and the port is inserted in the midaxillary line about sixth intercostal space, by making a tiny incision and then inserting a 5 mm port initially. The camera is now inserted, the lung and chest inspected. It should be noted that anesthesia was unable to place a double lumen Carlens tube so this is done through bilateral inflated lung but with small breaths, I was able to bring the lung somewhat down. The chest is examined. It is noted that the patient has a large black appearing hematoma, gelatinous and firm which occupies surface of the diaphragm and the inferior portion of the posterior sulcus of the chest. A second port is now placed in the posterior axillary line and through this port suction catheter is placed under the direct vision about 500 cc to 600 cc of coagulated blood is removed. The chest is now irrigated with copious amounts of saline through the suction lodge sales associate and again suctioned off to it is clean. There are some adhesions on the surface of the lung which are really firm essentially already, interesting enough after such a short period of time. These are teased off of the lung with the grasping forceps and removed. The same is done with a pleural surface. It is cleaned up from all the debris. Once more the chest is irrigated and two chest tubes are placed, posterior basal tube over the diaphragm and anterior tube as it goes apically. Both positions are checked with camera and then the ports are withdrawn. Incisions are now closed with 2-0 Vicryl for the deep layers, 4-0 Monocryl, and Dermabond applied. The patient tolerated the procedure well. Chest x-ray obtained. Tam RAMÍREZ/BILLY /5:10 PM /5:44 AM
--- NOTE | 2016-07-30 06:25 | RADRPT ---
EXAM DATE/TIME: 07/30/2016 05:40 [facility] COMPARISON: No previous studies available for comparison. INDICATIONS : Follow up respiratory status. MEDICAL HISTORY : None. SURGICAL HISTORY : None. ENCOUNTER: Subsequent ACUITY: 3 days PAIN SCORE: 7/10 LOCATION: Bilateral chest FINDINGS: The chest tube at the right base has been removed. The chest tube at the right apex remains in place. There is no pneumothorax. There is slightly improved but persisting consolidation of the right lung base. Worsening left base consolidation with a not significantly changed small effusion. Mild cardiomegaly again noted. CONCLUSION: 1. One of the right chest tubes as been removed. There is no pneumothorax. 2. Improving right base consolidation. 3. Slightly worsening left base consolidation. Hernandez Haro MD on July 30, 2016 at 6:22 Board Certified Radiologist. This report was verified electronically.
[2016-07-30] MEDS: INSULIN ASPART SUPPLEMENTAL SCALE SQ SCH ×3 (07:00→21:00)
--- NOTE | 2016-07-30 08:01 | HHI.PR ---
Subjective Remarks Tmax 98.2. Resting comfortably. Chest tube leaking overnight. Using Inspiratory spirometer at bedside once per hour. Tolerating heart healthy diet. Denies N/V/D/C. Denies CP/SOB. D/w Nursing Objective Vital Signs Date Time Temp Pulse Resp B/P Pulse Ox O2 Delivery O2 Flow Rate FiO2 07/30/16 03:40 97.0 79 18 112/76 99 07/30/16 00:16 98.2 88 17 112/71 99 07/29/16 19:15 96.3 95 18 120/80 100 07/29/16 16:00 96.3 93 16 123/77 100 07/29/16 12:00 96.3 80 16 115/73 98 I/O 07/29/16 07/29/16 07/29/16 07/30/16 07/30/16 07/30/16 07:00 15:00 23:00 07:00 15:00 23:00 Intake Total 480 ml 480 ml 480 ml Output Total 20 ml 100 ml Balance -20 ml 480 ml 380 ml 480 ml Intake Oral 480 ml 480 ml 480 ml Chest Tube Drainage Total 20 ml 100 ml # Voids 4 4 4 3 # Bowel Movements 0 1 1 0 Result Diagram: 07/30/16 0516 07/30/16 0516 Imaging Last Impressions Chest X-Ray 07/30/16 0600 Signed Impressions: Service Date/Time: Saturday, July 30, 2016 05:40 - CONCLUSION: 1. One of the right chest tubes as been removed. There is no pneumothorax. 2. Improving right base consolidation. 3. Slightly worsening left base consolidation. Hernandez Haro MD Chest CT 07/26/16 0000 Signed Impressions: Service Date/Time: Tuesday, July 26, 2016 12:39 - CONCLUSION: 1. Interval placement of percutaneous right pigtail drainage catheter with mild decrease in the size of the right pleural effusion and higher density hemorrhage. There is a moderate residual. 2. Minimal left effusion. Chriss Smith MD Chest Tube Insertion 07/24/16 0000 Signed Impressions: Service Date/Time: Sunday, July 24, 2016 17:27 - CONCLUSION: Uncomplicated chest tube placement as above. Roe Donald MD Procedures Right VATS with chest tube placement 07/27 Objective Remarks GENERAL: 76-year-old elderly, frail female recumbent in bed pleasantly conversant, in no distress. SKIN: Warm and dry. HEAD: Atraumatic. Normocephalic. EYES: Pupils equal and round. No scleral icterus. No injection or drainage. ENT: No nasal bleeding or discharge. Mucous membranes pink and moist. NECK: Trachea midline. CARDIOVASCULAR: Normal rate, regular rhythm. RESPIRATORY: No accessory muscle use. Clear to auscultation anteriorly. Breath sounds equal bilaterally. GASTROINTESTINAL: + BS. Abdomen soft, non-tender, nondistended. No guarding. Chest tube drainage noted on right side of abdomen, towel in place MUSCULOSKELETAL: Extremities without clubbing, cyanosis, or edema. No obvious deformities. NEUROLOGICAL: Awake and alert. No gross focal/sensory deficits. Follows commands in all 4 extremities. PSYCH: pleasant mood and affect. Does not appear anxious A/P Problem List: (1) Atrial fibrillation ICD Code: I48.91 (2) Postprocedural seroma of a respiratory system organ or structure following a respiratory system procedure ICD Code: J95.862 (3) H/O cardiac radiofrequency ablation ICD Code: Z98.890 Assessment and Plan A/P Postoperative pain - Roxicodone 5mg PO q6hr PRN - Fentanyl 50mcgs every 2 hours PRN - monitor respiratory status CVT surgery consulted: Hemopneumothorax with lung entrapment Status post right VATS with chest tube placement POD #3 One chest tube removed, still with one in place now on water seal. -Nursing will call CVT today to inform of chest tube leakage. Maintain O2 sat greater than 92%. Wean O2 as tolerated Incentive spirometry every hour while awake Maintain head of bed greater than 30 Bronchodilators when necessary Plan CVT surgery: Removed one chest tube today, likely second on Sunday or Sunday. -Currently leaking, nursing will call to inform Cardiology following: S/P cardiac ablation 07/2016 Telemetry NSR Apixiban held Continue amiodarone and metoprolol Maintain MAP greater than 65 mmHg Heart healthy diet Bowel regimen GI Prophylaxis: none, patient does not meet criteria DVT Prophylaxis: Manuela Deleon MD Jul 30, 2016 08:01
[2016-07-30] MEDS: DOCUSATE SODIUM 50 MG/SENNA 8.6 MG TAB PO SCH (09:00)
[2016-07-30] MEDS: SODIUM CHLORIDE 0.9% FLUSH 10 ML FLUSH IV FLUSH SCH ×2 (10:35→21:42)
[2016-07-30] MEDS: guaiFENesin/CODEINE SYRUP 200 MG/20 MG/10 ML CUP PO PRN ×2 (10:35→21:49)
[2016-07-30] MEDS: COLCHICINE 0.6 MG TAB PO SCH (10:37)
[2016-07-30] MEDS: AMIODARONE 200 MG TAB PO SCH ×2 (10:37→21:42)
[2016-07-30] MEDS: METOPROLOL TARTRATE 100 MG TAB PO SCH ×2 (10:37→21:41)
--- NOTE | 2016-07-30 13:32 | PD.CAR.PN ---
CVT Progress Note Subjective/Hospital Course: Referral received and discussed with Dr. Bertrand Full consult to follow Rosemary Rai 07/26/15 Patient underwent yesterday successful placement of a chest tube drain. Drain about 600 cc of old blood We'll check chest x-ray tomorrow and all things equal in a few days the drain will come out If patient still has retained hemothorax eventually required thoracoscopy but I don't think this will be the case Will continue to follow 07/26/16 Despite placement of the drain patient has a organized hemothorax with a moderate size hematoma in the right chest lying the surface of the diaphragm and posterior sulcus At this point the cystic gelatinous material and will not come out through the chest drain If left unattended this will either entrap the lung or get infected and constituted to empyema of the chest Therefore it is imperative that this be removed and I'll schedule patient for thoracoscopy tomorrow Risks and benefits have been explained 07/28/16 Patient status post VATS with evacuation of hematoma over the right chest and release of the right lung Chest tube drainage is serosanguineous and patient has a tiny leak Patient can be transferred to floor at this point and does not require ICU care anymore Will likely remove the basal chest tube on Sunday and then later on the apical one on Sunday Help from Dr. Danica Hummel is greatly appreciated as patient is now in the ICU 07/29/16 Lungs are fully inflated and the drainage from the chest tube has now decreased The right lung base is clearing up and diaphragm is visible And loculated hematoma of the chest has not been evacuated and I'm going remove the basal tube today and then apical tube on Sunday Patient doing really well 07/30/2016 Posterior chest tube removed yesterday and patient has some drainage from the site of the chest tube which is not surprising considering very thin chest wall in this lady Provided no increase in drainage I'll remove the apical tube tomorrow The right chest and loculated hematoma and haziness of the right lower lobe receding on the chest x-ray Objective: Vital Signs Date Time Temp Pulse Resp B/P Pulse Ox O2 Delivery O2 Flow Rate FiO2 07/30/16 08:51 98 21 07/30/16 08:00 96.4 91 17 133/73 98 07/30/16 03:40 97.0 79 18 112/76 99 07/30/16 00:16 98.2 88 17 112/71 99 07/29/16 19:15 96.3 95 18 120/80 100 07/29/16 16:00 96.3 93 16 123/77 100 Labs: Laboratory Tests Test 07/30/16 05:16 White Blood Count 7.9 TH/MM3 (4.0-11.0) Red Blood Count 2.85 MIL/MM3 (4.00-5.30) Hemoglobin 9.1 GM/DL (11.6-15.3) Hematocrit 26.3 % (35.0-46.0) Mean Corpuscular Volume 92.5 FL (80.0-100.0) Mean Corpuscular Hemoglobin 32.1 PG (27.0-34.0) Mean Corpuscular Hemoglobin 34.7 % Concent (32.0-36.0) Red Cell Distribution Width 13.7 % (11.6-17.2) Platelet Count 495 TH/MM3 (150-450) Mean Platelet Volume 7.3 FL (7.0-11.0) Neutrophils (%) (Auto) 65.9 % (16.0-70.0) Lymphocytes (%) (Auto) 16.8 % (9.0-44.0) Monocytes (%) (Auto) 10.6 % (0.0-8.0) Eosinophils (%) (Auto) 6.3 % (0.0-4.0) Basophils (%) (Auto) 0.4 % (0.0-2.0) Neutrophils # (Auto) 5.2 TH/MM3 (1.8-7.7) Lymphocytes # (Auto) 1.3 TH/MM3 (1.0-4.8) Monocytes # (Auto) 0.8 TH/MM3 (0-0.9) Eosinophils # (Auto) 0.5 TH/MM3 (0-0.4) Basophils # (Auto) 0.0 TH/MM3 (0-0.2) CBC Comment DIFF FINAL Differential Comment Sodium Level 132 MEQ/L (136-145) Potassium Level 4.4 MEQ/L (3.5-5.1) Chloride Level 99 MEQ/L (98-107) Carbon Dioxide Level 24.8 MEQ/L (21.0-32.0) Anion Gap 8 MEQ/L (5-15) Blood Urea Nitrogen 12 MG/DL (7-18) Creatinine 0.60 MG/DL (0.50-1.00) Estimat Glomerular Filtration 98 ML/MIN (>89) Rate Random Glucose 97 MG/DL (74-106) Calcium Level 8.0 MG/DL (8.5-10.1) Result Diagram: 07/30/16 0516 07/30/16 0516 Tam Escobedo MD Jul 30, 2016 13:32
[2016-07-30] MEDS: MAGNESIUM HYDROXIDE SUSP 30 ML CUP PO PRN (15:39)
[2016-07-30] MEDS: SODIUM CHLOR 0.9% 1000 ML INJ 1,000 ML IV SCH (17:57)
[2016-07-30] MEDS: clonazePAM 0.5 MG TAB PO PRN (21:49)
[2016-07-31] VITALS (7 sets, daily range): BP systolic 96–131; BP diastolic 53–82; PULSE 53–97; RESP 16–20; TEMP 95.8–98.3; O2SAT 96–100
[2016-07-31] MEDS: INSULIN ASPART SUPPLEMENTAL SCALE SQ SCH ×4 (07:00→21:00)
[2016-07-31] MEDS: clonazePAM 0.5 MG TAB PO PRN (09:10)
[2016-07-31] MEDS: METOPROLOL TARTRATE 100 MG TAB PO SCH ×2 (09:11→22:10)
[2016-07-31] MEDS: AMIODARONE 200 MG TAB PO SCH ×2 (09:11→22:10)
[2016-07-31] MEDS: COLCHICINE 0.6 MG TAB PO SCH (09:11)
[2016-07-31] MEDS: SODIUM CHLORIDE 0.9% FLUSH 10 ML FLUSH IV FLUSH SCH ×2 (09:12→21:00)
[2016-07-31] MEDS: DOCUSATE SODIUM 50 MG/SENNA 8.6 MG TAB PO SCH (09:12)
--- NOTE | 2016-07-31 12:24 | HHI.PR ---
Subjective Remarks still with some pain to the right chest. chest tube in place. Objective Vitals Vital Signs Date Time Temp Pulse Resp B/P Pulse Ox O2 Delivery O2 Flow Rate FiO2 07/31/16 12:02 95.8 82 16 115/72 96 07/31/16 08:00 96.8 97 20 121/82 100 07/31/16 04:58 97.3 53 17 96/53 98 07/31/16 00:15 98.3 77 18 99/65 98 07/30/16 19:55 97.0 82 18 111/72 100 07/30/16 16:00 97.0 81 16 128/75 100 I/O 07/30/16 07/30/16 07/30/16 07/31/16 07/31/16 07/31/16 07:00 15:00 23:00 07:00 15:00 23:00 Intake Total 480 ml 480 ml 240 ml 480 ml Output Total 20 ml 0 ml Balance 460 ml 480 ml 240 ml 480 ml Intake Oral 480 ml 480 ml 240 ml 480 ml Chest Tube Drainage Total 20 ml 0 ml # Voids 3 4 3 3 # Bowel Movements 0 0 0 0 Result Diagram: 07/30/16 0516 07/30/16 0516 Imaging Last Impressions Chest X-Ray 07/30/16 0600 Signed Impressions: Service Date/Time: Saturday, July 30, 2016 05:40 - CONCLUSION: 1. One of the right chest tubes as been removed. There is no pneumothorax. 2. Improving right base consolidation. 3. Slightly worsening left base consolidation. Hernandez Haro MD Chest CT 07/26/16 0000 Signed Impressions: Service Date/Time: Tuesday, July 26, 2016 12:39 - CONCLUSION: 1. Interval placement of percutaneous right pigtail drainage catheter with mild decrease in the size of the right pleural effusion and higher density hemorrhage. There is a moderate residual. 2. Minimal left effusion. Chriss Smith MD Chest Tube Insertion 07/24/16 0000 Signed Impressions: Service Date/Time: Sunday, July 24, 2016 17:27 - CONCLUSION: Uncomplicated chest tube placement as above. Roe Donald MD Objective Remarks GENERAL: This is a well-nourished, well-developed patient, in no apparent distress. CARDIOVASCULAR: Regular rate and regular rhythm without murmurs, gallops, or rubs. RESPIRATORY: bilateral air entry present. GASTROINTESTINAL: Abdomen soft, non-tender, nondistended. Normal, active bowel sounds MUSCULOSKELETAL: Extremities without clubbing, cyanosis, or edema. NEURO: Alert & Oriented x4 to person, place, time, situation. Moves all ext x4 Procedures thoracoscopy chest tube insertion Medications and IVs Current Medications Sodium Chloride (NS Flush) 2 ml UNSCH PRN IV FLUSH FLUSH AFTER USING IV ACCESS ; Start 07/22/16 at 07:30 Sodium Chloride (NS Flush) 2 ml BID IV FLUSH Last administered on 07/31/16 09: 12; Start 07/22/16 at 09:00 Acetaminophen (Tylenol) 650 mg Q4H PRN PO FEVER Last administered on 07/28/16 16:44; Start 07/22/16 at 07:30 Ondansetron HCl (Zofran Inj) 4 mg Q6H PRN IVP NAUSEA OR VOMITING; Start at 07:30 Magnesium Hydroxide (Milk Of Magnbrian Liq) 30 ml Q12H PRN PO CONSTIPATION Last administered on 07/30/16 15:39; Start 07/22/16 at 07:30 Naloxone HCl (Narcan Inj) 0.4 mg UNSCH PRN IV SEE LABEL COMMENTS; Start at 07:30 Sodium Chloride (NS Flush) 2 ml BID IV FLUSH ; Start 07/22/16 at 09:00; Status UNV Sodium Chloride (NS Flush) 2 ml UNSCH PRN IVF FLUSH AFTER USING IV ACCESS; Start 07/22/16 at 07:30; Status UNV Clonazepam (KlonoPIN) 0.5 mg Q8HR PRN PO Anxiety Last administered on 20:52; Start 07/22/16 at 16:15; Stop 07/23/16 at 07:37; Status DC Amiodarone HCl (Cordarone) 400 mg BID PO Last administered on 07/31/16 09:11; Start 07/22/16 at 21:00 Colchicine (Colchicine) 0.3 mg DAILY PO Last administered on 07/31/16 09:11; Start 07/23/16 at 09:00 Metoprolol Tartrate (Lopressor) 100 mg BID PO Last administered on 07/31/16 09: 11; Start 07/22/16 at 21:00 Miscellaneous (Pill Splitter) 1 ea UNSCH PRN OTHER SEE LABEL COMMENTS; Start at 16:30 Clonazepam (KlonoPIN) 0.25 mg Q8H PRN PO Anxiety Last administered on 07/31/16 09:10; Start 07/23/16 at 07:45 Guaifenesin/ Codeine Phosphate (Robitussin Ac 200-20 Mg/10 ml Liq) 10 ml Q6H PRN PO Cough Last administered on 07/30/16 21:49; Start 07/23/16 at 09:30 Furosemide (Lasix Inj) 20 mg BID@,18 IV PUSH Last administered on 07/24/16 10:13; Start 07/23/16 at 18:00; Stop 07/24/16 at 17:59; Status DC Furosemide (Lasix Inj) 20 mg ONCE ONCE IV PUSH Last administered on 07/23/16 11:45; Start 07/23/16 at 11:00; Stop 07/23/16 at 11:01; Status DC Lidocaine/ Epinephrine (Xylocaine-Epi 1%-1:100,000 Inj) 20 ml STK-MED ONCE .ROUTE Last administered on 07/24/16 16:58; Start 07/24/16 at 16:58; Stop at 16:59; Status DC Fentanyl Citrate (fentaNYL INJ) 250 mcg STK-MED ONCE .ROUTE Last administered on 07/24/16 17:00; Start 07/24/16 at 17:00; Stop 07/24/16 at 17:01; Status DC Lorazepam (Ativan Inj) 2 mg STK-MED ONCE .ROUTE Last administered on 07/24/16 17:00; Start 07/24/16 at 17:00; Stop 07/24/16 at 17:01; Status DC Acetaminophen/ Hydrocodone Bitart (Ciales 5-325 Mg) 1 tab Q4H PRN PO PAIN < 5 Last administered on 07/26/16 09:41; Start 07/25/16 at 08:45; Stop 07/27/16 at 18:21; Status DC Acetaminophen/ Hydrocodone Bitart (Ciales 5-325 Mg) 2 tab Q4H PRN PO PAIN 5 OR GREATER Last administered on 07/27/16 06:48; Start 07/25/16 at 08:45; Stop at 18:21; Status DC Hydromorphone HCl (Dilaudid Pf Inj) 0.2 mg Q4H PRN IV PUSH BREAKTHROUGH PAIN Last administered on 07/26/16 10:27; Start 07/25/16 at 08:45; Stop 07/27/16 at 18:29; Status DC Docusate Sodium 100 mg 100 mg BID PRN PO CONSTIPATION Last administered on 07/28 20:43; Start 07/25/16 at 08:45; Stop 07/29/16 at 15:05; Status DC Cefazolin Sodium/ Dextrose (Ancef 2 Gm Premix) 50 ml @ 100 mls/hr DIRECTOR OF FRONT OFFICE IV Last administered on 07/27/16 12:03; Start 07/26/16 at 14:30; Stop 07/29/16 at 14:29; Status DC Bupivacaine HCl/ Epinephrine Bitart (Marcaine-Epi Pf 0.25% Inj) 30 ml STK-MED ONCE .ROUTE ; Start 07/27/16 at 11:41; Stop 07/27/16 at 11:42; Status DC Bupivacaine HCl (Marcaine Pf 0.25% Inj) 30 ml STK-MED ONCE .ROUTE ; Start at 11:41; Stop 07/27/16 at 11:42; Status DC Gentamicin Sulfate (Gentamicin Inj) 240 mg STK-MED ONCE .ROUTE ; Start 07/27/16 at 11:41; Stop 07/27/16 at 11:42; Status DC Famotidine (Pepcid Inj) 20 mg STK-MED ONCE .ROUTE ; Start 07/27/16 at 12:51; Stop 07/27/16 at 12:52; Status DC Midazolam HCl (Versed Inj) 2 mg STK-MED ONCE .ROUTE ; Start 07/27/16 at 12:52; Stop 07/27/16 at 12:53; Status DC Dexamethasone Sodium Phosphate (Decadron Inj) 4 mg STK-MED ONCE .ROUTE ; Start 07/27/16 at 12:52; Stop 07/27/16 at 12:53; Status DC Acetaminophen (Ofirmev Inj) 1,000 mg STK-MED ONCE IV ; Start 07/27/16 at 12:52; Stop 07/27/16 at 12:53; Status DC Talc (Sterile Talc Powder 5 Gm) 5 gm STK-MED ONCE I-CAVITARY Last administered on 07/27/16 14:05; Start 07/27/16 at 14:05; Stop 07/27/16 at 14:06; Status DC Hydromorphone HCl (*DILAUDID PF INJ PERIprocedural ONLY) 1 mg STK-MED ONCE .ROUTE Last administered on 07/27/16 15:22; Start 07/27/16 at 15:22; Stop at 15:23; Status DC Fentanyl Citrate (fentaNYL INJ) 250 mcg STK-MED ONCE .ROUTE ; Start 07/27/16 at 15:23; Stop 07/27/16 at 15:24; Status DC Miscellaneous Information ALL NURSING DEPARTME... UNSCH PRN .XX SEE LABEL COMMENTS; Start 07/27/16 at 15:45; Stop 07/28/16 at 15:44; Status DC Hydromorphone HCl (*DILAUDID PF INJ PERIprocedural ONLY) 1 mg STK-MED ONCE .ROUTE Last administered on 07/27/16 15:41; Start 07/27/16 at 15:41; Stop at 15:42; Status DC Naloxone HCl (Narcan Inj) 0.4 mg UNSCH PRN IV RESPIRATORY RATE LESS THAN 10; Start 07/27/16 at 16:00; Stop 07/27/16 at 18:23; Status DC Morphine Sulfate (Morphine 1 Mg/ ml BEE PRODUCER) 30 mg UNSCH IV Last administered on 16:55; Start 07/27/16 at 16:00; Stop 07/27/16 at 18:23; Status DC BEE PRODUCER Dosage Infused (Pha) 1 Q8HR .XX ; Start 07/27/16 at 16:00; Stop 07/27/16 at 18:23; Status DC Hydromorphone HCl (*DILAUDID PF INJ PERIprocedural ONLY) 1 mg STK-MED ONCE .ROUTE Last administered on 07/27/16 15:58; Start 07/27/16 at 15:58; Stop at 15:59; Status DC Acetaminophen (Ofirmev Inj) 1,000 mg Q6H IV Last administered on 07/28/16 14: 00; Start 07/27/16 at 20:00; Stop 07/28/16 at 19:59; Status DC Ketorolac Tromethamine (Toradol Inj) 15 mg Q6H IV PUSH Last administered on 15:41; Start 07/27/16 at 22:00; Stop 07/30/16 at 21:59; Status DC Oxycodone HCl (Roxicodone) 5 mg Q6H PRN PO PAIN SCALE 7 TO 10 Last administered on 07/31/16 10:26; Start 07/27/16 at 18:30 Fentanyl Citrate 50 mcg 50 mcg Q2H PRN IV PUSH PAIN SCALE 7 TO 10 Last administered on 07/27/16 21:13; Start 07/27/16 at 18:30 Sodium Chloride (NS 1000 ml Inj) 1,000 ml @ 42 mls/hr [id number] IV Last administered on 07/27/16 21:05; Start 07/27/16 at 18:30 Insulin Aspart (NovoLOG SUPPLEMENTAL SCALE) 1 ACHS SLIDING SCALE SQ ; Start at 21:00 Dextrose (D50w (Vial) Inj) 25 ml UNSCH PRN IV PUSH HYPOGLYCEMIA-SEE COMMENTS; Start 07/27/16 at 18:45 Glucagon (Glucagon Inj) 1 mg UNSCH PRN OTHER HYPOGLYCEMIA-SEE COMMENTS; Start 07/27/16 at 18:45 Albuterol/ Ipratropium (Duoneb Neb) 1 ampule Q6HR NEB PRN NEB WHEEZING; Start 07/27/16 at 18:45 Senna/Docusate Sodium (Meagan-Colace) 1 tab DAILY PO Last administered on 09:12; Start 07/29/16 at 15:15 A/P Assessment and Plan Postoperative pain - Roxicodone 5mg PO q6hr PRN - Fentanyl 50mcgs every 2 hours PRN - monitor respiratory status CVT surgery consulted: Hemopneumothorax with lung entrapment Status post right VATS with chest tube placement One chest tube removed, still with one in place now on water seal. Maintain O2 sat greater than 92%. Wean O2 as tolerated Incentive spirometry every hour while awake Maintain head of bed greater than 30 Bronchodilators when necessary Cardiology following: S/P cardiac ablation 07/2016 Telemetry NSR Apixiban on hold Continue amiodarone and metoprolol Heart healthy diet Bowel regimen GI Prophylaxis: none, patient does not meet criteria DVT Prophylaxis: Bandar Rowley MD July 31, 2016 12:24 Bowel regimen GI Prophylaxis: none, patient does not meet criteria DVT Prophylaxis: Bandar Rowley MD July 31, 2016 12:24
[2016-07-31] MEDS: guaiFENesin/CODEINE SYRUP 200 MG/20 MG/10 ML CUP PO PRN ×2 (13:48→22:17)
--- NOTE | 2016-07-31 16:05 | PD.CAR.PN ---
CVT Progress Note Subjective/Hospital Course: Referral received and discussed with Dr. Bertrand Full consult to follow Rosemary Rai 07/26/15 Patient underwent yesterday successful placement of a chest tube drain. Drain about 600 cc of old blood We'll check chest x-ray tomorrow and all things equal in a few days the drain will come out If patient still has retained hemothorax eventually required thoracoscopy but I don't think this will be the case Will continue to follow 07/26/16 Despite placement of the drain patient has a organized hemothorax with a moderate size hematoma in the right chest lying the surface of the diaphragm and posterior sulcus At this point the cystic gelatinous material and will not come out through the chest drain If left unattended this will either entrap the lung or get infected and constituted to empyema of the chest Therefore it is imperative that this be removed and I'll schedule patient for thoracoscopy tomorrow Risks and benefits have been explained 07/28/16 Patient status post VATS with evacuation of hematoma over the right chest and release of the right lung Chest tube drainage is serosanguineous and patient has a tiny leak Patient can be transferred to floor at this point and does not require ICU care anymore Will likely remove the basal chest tube on Sunday and then later on the apical one on Sunday Help from Dr. Danica Hummel is greatly appreciated as patient is now in the ICU 07/29/16 Lungs are fully inflated and the drainage from the chest tube has now decreased The right lung base is clearing up and diaphragm is visible And loculated hematoma of the chest has not been evacuated and I'm going remove the basal tube today and then apical tube on Sunday Patient doing really well 07/30/2016 Posterior chest tube removed yesterday and patient has some drainage from the site of the chest tube which is not surprising considering very thin chest wall in this lady Provided no increase in drainage I'll remove the apical tube tomorrow The right chest and loculated hematoma and haziness of the right lower lobe receding on the chest x-ray 07/31/16 Patient doing really well Basal chest tube was removed yesterday and chest x-rays almost completely clear today Patient still has a tiny air leak on Valsalva and therefore we'll leave the apical chest tube for another day was likely remove it tomorrow Incision clean and dry Objective: Vital Signs Date Time Temp Pulse Resp B/P Pulse Ox O2 Delivery O2 Flow Rate FiO2 07/31/16 12:02 95.8 82 16 115/72 96 07/31/16 11:26 18 07/31/16 08:00 96.8 97 20 121/82 100 07/31/16 04:58 97.3 53 17 96/53 98 07/31/16 00:15 98.3 77 18 99/65 98 07/30/16 19:55 97.0 82 18 111/72 100 Result Diagram: 07/30/16 0516 07/30/16 0516 Tam Escobedo MD July 31, 2016 16:05
[2016-07-31] MEDS: SODIUM CHLOR 0.9% 1000 ML INJ 1,000 ML IV SCH (17:46)
[2016-07-31] MEDS: MAGNESIUM HYDROXIDE SUSP 30 ML CUP PO PRN (22:10)
[2016-08-01 04:10] VITALS: BP 124/70; PULSE 90; RESP 17; TEMP 98.1; O2SAT 99
[2016-08-01] MEDS: guaiFENesin/CODEINE SYRUP 200 MG/20 MG/10 ML CUP PO PRN ×2 (04:48→21:01)
[2016-08-01] MEDS: INSULIN ASPART SUPPLEMENTAL SCALE SQ SCH ×4 (04:52→21:00)
[2016-08-01 08:00] VITALS: BP 118/84; PULSE 96; RESP 19; TEMP 96.7; O2SAT 96
[2016-08-01 08:42] LABS: HEMATOCRIT 30.3 % (35.0-46.0); MEAN CORPUSCULAR HEMOGLOBIN 31.9 PG (27.0-34.0); MEAN CORPUSCULAR HGB CONC 34.3 % (32.0-36.0); PLATELET COUNT 614 TH/MM3 (150-450); RED BLOOD COUNT 3.26 MIL/MM3 (4.00-5.30); RED CELL DISTRIBUTION WIDTH 14.1 % (11.6-17.2); REVIEW FLAG FINAL
[2016-08-01 09:10] LABS: BICARBONATE 28.1 MEQ/L (21.0-32.0); POTASSIUM 4.7 MEQ/L (3.5-5.1)
[2016-08-01] MEDS: DOCUSATE SODIUM 50 MG/SENNA 8.6 MG TAB PO SCH (09:11)
[2016-08-01] MEDS: COLCHICINE 0.6 MG TAB PO SCH (09:11)
[2016-08-01] MEDS: METOPROLOL TARTRATE 100 MG TAB PO SCH ×2 (09:11→21:01)
[2016-08-01] MEDS: AMIODARONE 200 MG TAB PO SCH ×2 (09:11→21:01)
[2016-08-01] MEDS: SODIUM CHLORIDE 0.9% FLUSH 10 ML FLUSH IV FLUSH SCH ×2 (09:11→21:00)
[2016-08-01] MEDS: clonazePAM 0.5 MG TAB PO PRN (09:15)
--- NOTE | 2016-08-01 09:29 | HHI.PR ---
Subjective Remarks in no acute distress. still with some pain to the right chest but says that the pain meds help. chest tube in place. Objective Vitals Vital Signs Date Time Temp Pulse Resp B/P Pulse Ox O2 Delivery O2 Flow Rate FiO2 08/01/16 04:10 98.1 90 17 124/70 99 07/31/16 23:45 96.8 89 18 131/76 96 07/31/16 20:30 97.0 82 16 117/77 98 07/31/16 17:23 18 07/31/16 17:00 96.4 78 16 123/64 99 07/31/16 12:02 95.8 82 16 115/72 96 I/O 07/31/16 07/31/16 07/31/16 08/01/16 08/01/16 08/01/16 07:00 15:00 23:00 07:00 15:00 23:00 Intake Total 480 ml 600 ml 480 ml 240 ml Output Total 90 ml 0 ml 0 ml Balance 480 ml 510 ml 480 ml 240 ml Intake Oral 480 ml 600 ml 480 ml 240 ml Chest Tube Drainage Total 0 ml 0 ml Drainage Total 90 ml # Voids 3 3 2 2 # Bowel Movements 0 0 0 0 Result Diagram: 08/01/16 0804 08/01/16 0809 Imaging Last Impressions Chest X-Ray 07/30/16 0600 Signed Impressions: Service Date/Time: Saturday, July 30, 2016 05:40 - CONCLUSION: 1. One of the right chest tubes as been removed. There is no pneumothorax. 2. Improving right base consolidation. 3. Slightly worsening left base consolidation. Hernandez Haro MD Chest CT 07/26/16 0000 Signed Impressions: Service Date/Time: Tuesday, July 26, 2016 12:39 - CONCLUSION: 1. Interval placement of percutaneous right pigtail drainage catheter with mild decrease in the size of the right pleural effusion and higher density hemorrhage. There is a moderate residual. 2. Minimal left effusion. Chriss Smith MD Chest Tube Insertion 07/24/16 0000 Signed Impressions: Service Date/Time: Sunday, July 24, 2016 17:27 - CONCLUSION: Uncomplicated chest tube placement as above. Roe Donald MD Objective Remarks GENERAL: This is a well-nourished, well-developed patient, in no apparent distress. CARDIOVASCULAR: Regular rate and regular rhythm without murmurs, gallops, or rubs. RESPIRATORY: bilateral air entry present. GASTROINTESTINAL: Abdomen soft, non-tender, nondistended. Normal, active bowel sounds MUSCULOSKELETAL: Extremities without clubbing, cyanosis, or edema. NEURO: Alert & Oriented x4 to person, place, time, situation. Moves all ext x4 Procedures thoracoscopy chest tube insertion Medications and IVs Current Medications Sodium Chloride (NS Flush) 2 ml UNSCH PRN IV FLUSH FLUSH AFTER USING IV ACCESS ; Start 07/22/16 at 07:30 Sodium Chloride (NS Flush) 2 ml BID IV FLUSH Last administered on 08/01/16 09: 11; Start 07/22/16 at 09:00 Acetaminophen (Tylenol) 650 mg Q4H PRN PO FEVER Last administered on 07/28/16 16:44; Start 07/22/16 at 07:30 Ondansetron HCl (Zofran Inj) 4 mg Q6H PRN IVP NAUSEA OR VOMITING; Start at 07:30 Magnesium Hydroxide (Milk Of Worksteady.iobrian Liq) 30 ml Q12H PRN PO CONSTIPATION Last administered on 07/31/16 22:10; Start 07/22/16 at 07:30 Naloxone HCl (Narcan Inj) 0.4 mg UNSCH PRN IV SEE LABEL COMMENTS; Start at 07:30 Sodium Chloride (NS Flush) 2 ml BID IV FLUSH ; Start 07/22/16 at 09:00; Status UNV Sodium Chloride (NS Flush) 2 ml UNSCH PRN IVF FLUSH AFTER USING IV ACCESS; Start 07/22/16 at 07:30; Status UNV Clonazepam (KlonoPIN) 0.5 mg Q8HR PRN PO Anxiety Last administered on 20:52; Start 07/22/16 at 16:15; Stop 07/23/16 at 07:37; Status DC Amiodarone HCl (Cordarone) 400 mg BID PO Last administered on 08/01/16 09:11; Start 07/22/16 at 21:00 Colchicine (Colchicine) 0.3 mg DAILY PO Last administered on 08/01/16 09:11; Start 07/23/16 at 09:00 Metoprolol Tartrate (Lopressor) 100 mg BID PO Last administered on 08/01/16 09: 11; Start 07/22/16 at 21:00 Miscellaneous (Pill Splitter) 1 ea UNSCH PRN OTHER SEE LABEL COMMENTS; Start at 16:30 Clonazepam (KlonoPIN) 0.25 mg Q8H PRN PO Anxiety Last administered on 08/01/16 09:15; Start 07/23/16 at 07:45 Guaifenesin/ Codeine Phosphate (Robitussin Ac 200-20 Mg/10 ml Liq) 10 ml Q6H PRN PO Cough Last administered on 08/01/16 04:48; Start 07/23/16 at 09:30 Furosemide (Lasix Inj) 20 mg BID@,18 IV PUSH Last administered on 07/24/16 10:13; Start 07/23/16 at 18:00; Stop 07/24/16 at 17:59; Status DC Furosemide (Lasix Inj) 20 mg ONCE ONCE IV PUSH Last administered on 07/23/16 11:45; Start 07/23/16 at 11:00; Stop 07/23/16 at 11:01; Status DC Lidocaine/ Epinephrine (Xylocaine-Epi 1%-1:100,000 Inj) 20 ml STK-MED ONCE .ROUTE Last administered on 07/24/16 16:58; Start 07/24/16 at 16:58; Stop at 16:59; Status DC Fentanyl Citrate (fentaNYL INJ) 250 mcg STK-MED ONCE .ROUTE Last administered on 07/24/16 17:00; Start 07/24/16 at 17:00; Stop 07/24/16 at 17:01; Status DC Lorazepam (Ativan Inj) 2 mg STK-MED ONCE .ROUTE Last administered on 07/24/16 17:00; Start 07/24/16 at 17:00; Stop 07/24/16 at 17:01; Status DC Acetaminophen/ Hydrocodone Bitart ([place] 5-325 Mg) 1 tab Q4H PRN PO PAIN < 5 Last administered on 07/26/16 09:41; Start 07/25/16 at 08:45; Stop 07/27/16 at 18:21; Status DC Acetaminophen/ Hydrocodone Bitart ([place] 5-325 Mg) 2 tab Q4H PRN PO PAIN 5 OR GREATER Last administered on 07/27/16 06:48; Start 07/25/16 at 08:45; Stop at 18:21; Status DC Hydromorphone HCl (Dilaudid Pf Inj) 0.2 mg Q4H PRN IV PUSH BREAKTHROUGH PAIN Last administered on 07/26/16 10:27; Start 07/25/16 at 08:45; Stop 07/27/16 at 18:29; Status DC Docusate Sodium 100 mg 100 mg BID PRN PO CONSTIPATION Last administered on 07/28 20:43; Start 07/25/16 at 08:45; Stop 07/29/16 at 15:05; Status DC Cefazolin Sodium/ Dextrose (Ancef 2 Gm Premix) 50 ml @ 100 mls/hr FLANGER IV Last administered on 07/27/16 12:03; Start 07/26/16 at 14:30; Stop 07/29/16 at 14:29; Status DC Bupivacaine HCl/ Epinephrine Bitart (Marcaine-Epi Pf 0.25% Inj) 30 ml STK-MED ONCE .ROUTE ; Start 07/27/16 at 11:41; Stop 07/27/16 at 11:42; Status DC Bupivacaine HCl (Marcaine Pf 0.25% Inj) 30 ml STK-MED ONCE .ROUTE ; Start at 11:41; Stop 07/27/16 at 11:42; Status DC Gentamicin Sulfate (Gentamicin Inj) 240 mg STK-MED ONCE .ROUTE ; Start 07/27/16 at 11:41; Stop 07/27/16 at 11:42; Status DC Famotidine (Pepcid Inj) 20 mg STK-MED ONCE .ROUTE ; Start 07/27/16 at 12:51; Stop 07/27/16 at 12:52; Status DC Midazolam HCl (Versed Inj) 2 mg STK-MED ONCE .ROUTE ; Start 07/27/16 at 12:52; Stop 07/27/16 at 12:53; Status DC Dexamethasone Sodium Phosphate (Decadron Inj) 4 mg STK-MED ONCE .ROUTE ; Start 07/27/16 at 12:52; Stop 07/27/16 at 12:53; Status DC Acetaminophen (Ofirmev Inj) 1,000 mg STK-MED ONCE IV ; Start 07/27/16 at 12:52; Stop 07/27/16 at 12:53; Status DC Talc (Sterile Talc Powder 5 Gm) 5 gm STK-MED ONCE I-CAVITARY Last administered on 07/27/16 14:05; Start 07/27/16 at 14:05; Stop 07/27/16 at 14:06; Status DC Hydromorphone HCl (*DILAUDID PF INJ PERIprocedural ONLY) 1 mg STK-MED ONCE .ROUTE Last administered on 07/27/16 15:22; Start 07/27/16 at 15:22; Stop at 15:23; Status DC Fentanyl Citrate (fentaNYL INJ) 250 mcg STK-MED ONCE .ROUTE ; Start 07/27/16 at 15:23; Stop 07/27/16 at 15:24; Status DC Miscellaneous Information ALL NURSING DEPARTME... UNSCH PRN .XX SEE LABEL COMMENTS; Start 07/27/16 at 15:45; Stop 07/28/16 at 15:44; Status DC Hydromorphone HCl (*DILAUDID PF INJ PERIprocedural ONLY) 1 mg STK-MED ONCE .ROUTE Last administered on 07/27/16 15:41; Start 07/27/16 at 15:41; Stop at 15:42; Status DC Naloxone HCl (Narcan Inj) 0.4 mg UNSCH PRN IV RESPIRATORY RATE LESS THAN 10; Start 07/27/16 at 16:00; Stop 07/27/16 at 18:23; Status DC Morphine Sulfate (Morphine 1 Mg/ ml [employer]) 30 mg UNSCH IV Last administered on 16:55; Start 07/27/16 at 16:00; Stop 07/27/16 at 18:23; Status DC [employer] Dosage Infused (Pha) 1 Q8HR .XX ; Start 07/27/16 at 16:00; Stop 07/27/16 at 18:23; Status DC Hydromorphone HCl (*DILAUDID PF INJ PERIprocedural ONLY) 1 mg STK-MED ONCE .ROUTE Last administered on 07/27/16 15:58; Start 07/27/16 at 15:58; Stop at 15:59; Status DC Acetaminophen (Ofirmev Inj) 1,000 mg Q6H IV Last administered on 07/28/16 14: 00; Start 07/27/16 at 20:00; Stop 07/28/16 at 19:59; Status DC Ketorolac Tromethamine (Toradol Inj) 15 mg Q6H IV PUSH Last administered on 15:41; Start 07/27/16 at 22:00; Stop 07/30/16 at 21:59; Status DC Oxycodone HCl (Roxicodone) 5 mg Q6H PRN PO PAIN SCALE 7 TO 10 Last administered on 08/01/16 04:46; Start 07/27/16 at 18:30 Fentanyl Citrate 50 mcg 50 mcg Q2H PRN IV PUSH PAIN SCALE 7 TO 10 Last administered on 07/27/16 21:13; Start 07/27/16 at 18:30 Sodium Chloride (NS 1000 ml Inj) 1,000 ml @ 42 mls/hr [id number] IV Last administered on 07/27/16 21:05; Start 07/27/16 at 18:30 Insulin Aspart (NovoLOG SUPPLEMENTAL SCALE) 1 ACHS SLIDING SCALE SQ ; Start at 21:00 Dextrose (D50w (Vial) Inj) 25 ml UNSCH PRN IV PUSH HYPOGLYCEMIA-SEE COMMENTS; Start 07/27/16 at 18:45 Glucagon (Glucagon Inj) 1 mg UNSCH PRN OTHER HYPOGLYCEMIA-SEE COMMENTS; Start 07/27/16 at 18:45 Albuterol/ Ipratropium (Duoneb Neb) 1 ampule Q6HR NEB PRN NEB WHEEZING; Start 07/27/16 at 18:45 Senna/Docusate Sodium (Meagan-Colace) 1 tab DAILY PO Last administered on 09:11; Start 07/29/16 at 15:15 A/P Assessment and Plan Postoperative pain - Roxicodone 5mg PO q6hr PRN - monitor respiratory status CVT surgery consulted: Hemopneumothorax with lung entrapment Status post right VATS with chest tube placement One chest tube removed, still with one in place now on water seal. Maintain O2 sat greater than 92%. Wean O2 as tolerated Incentive spirometry every hour while awake Maintain head of bed greater than [address] surgery following. atrial fibrillation; S/P cardiac ablation 07/2016 Telemetry NSR Apixiban on hold Continue amiodarone and metoprolol Heart healthy diet Bowel regimen DVT Prophylaxis: SCDs Bandar Roldan MD August 01, 2016 09:29
[2016-08-01] MEDS ORDERED: MORPHINE SULFATE 4 MG/ML INJ IV PUSH ONE (11:30)
[2016-08-01 12:00] VITALS: BP 112/71; PULSE 80; RESP 18; TEMP 97.2; O2SAT 99
--- NOTE | 2016-08-01 14:31 | RADRPT ---
EXAM DATE/TIME: 08/01/2016 14:01 [facility] COMPARISON: CHEST SINGLE AP, July 30, 2016, 5:40. INDICATIONS : Status post right chest tube removal. MEDICAL HISTORY : None. SURGICAL HISTORY : Tonsillectomy. Heart valve ablation. ENCOUNTER: Subsequent ACUITY: 1 week PAIN SCORE: 1/10 LOCATION: chest FINDINGS: A single portable frontal view the chest shows a linear density involving the right lung apex. Vascul ar markings are seen peripheral to this. This is felt to be artifact. No pneumothorax. A right lower lobe infiltrate is similar to the prior study. Left lung is clear. No effusions. Heart mildly enlarge d. Bony structures are unremarkable. CONCLUSION: No pneumothorax following chest tube removal. Stable right lower lobe atelectasis versus infiltrate. Brent Cervantes Jr., MD on August 01, 2016 at 14:27 Board Certified Radiologist. This report was verified electronically.
--- NOTE | 2016-08-01 14:59 | PD.CAR.PN ---
CVT Progress Note Subjective/Hospital Course: Referral received and discussed with Dr. Bertrand Full consult to follow Rosemary Rai 07/26/15 Patient underwent yesterday successful placement of a chest tube drain. Drain about 600 cc of old blood We'll check chest x-ray tomorrow and all things equal in a few days the drain will come out If patient still has retained hemothorax eventually required thoracoscopy but I don't think this will be the case Will continue to follow 07/26/16 Despite placement of the drain patient has a organized hemothorax with a moderate size hematoma in the right chest lying the surface of the diaphragm and posterior sulcus At this point the cystic gelatinous material and will not come out through the chest drain If left unattended this will either entrap the lung or get infected and constituted to empyema of the chest Therefore it is imperative that this be removed and I'll schedule patient for thoracoscopy tomorrow Risks and benefits have been explained 07/28/16 Patient status post VATS with evacuation of hematoma over the right chest and release of the right lung Chest tube drainage is serosanguineous and patient has a tiny leak Patient can be transferred to floor at this point and does not require ICU care anymore Will likely remove the basal chest tube on Sunday and then later on the apical one on Sunday Help from Dr. Danica Hummel is greatly appreciated as patient is now in the ICU 07/29/16 Lungs are fully inflated and the drainage from the chest tube has now decreased The right lung base is clearing up and diaphragm is visible And loculated hematoma of the chest has not been evacuated and I'm going remove the basal tube today and then apical tube on Sunday Patient doing really well 07/30/2016 Posterior chest tube removed yesterday and patient has some drainage from the site of the chest tube which is not surprising considering very thin chest wall in this lady Provided no increase in drainage I'll remove the apical tube tomorrow The right chest and loculated hematoma and haziness of the right lower lobe receding on the chest x-ray 07/31/16 Patient doing really well Basal chest tube was removed yesterday and chest x-rays almost completely clear today Patient still has a tiny air leak on Valsalva and therefore we'll leave the apical chest tube for another day was likely remove it tomorrow Incision clean and dry 08/01/2016 Apical chest tube has been removed today Incision is clean and dry and dressing is applied Patient has full expansion of the right lung and from my point can be discharged tomorrow Follow-up with me in about 2-3 weeks in the office Objective: Vital Signs Date Time Temp Pulse Resp B/P Pulse Ox O2 Delivery O2 Flow Rate FiO2 08/01/16 12:00 97.2 80 18 112/71 99 08/01/16 11:54 18 08/01/16 08:00 96.7 96 19 118/84 96 08/01/16 04:10 98.1 90 17 124/70 99 07/31/16 23:45 96.8 89 18 131/76 96 07/31/16 20:30 97.0 82 16 117/77 98 07/31/16 17:00 96.4 78 16 123/64 99 Labs: Laboratory Tests Test 08/01/16 08/01/16 08:04 08:09 White Blood Count 10.0 TH/MM3 (4.0-11.0) Red Blood Count 3.26 MIL/MM3 (4.00-5.30) Hemoglobin 10.4 GM/DL (11.6-15.3) Hematocrit 30.3 % (35.0-46.0) Mean Corpuscular Volume 93.0 FL (80.0-100.0) Mean Corpuscular Hemoglobin 31.9 PG (27.0-34.0) Mean Corpuscular Hemoglobin 34.3 % Concent (32.0-36.0) Red Cell Distribution Width 14.1 % (11.6-17.2) Platelet Count 614 TH/MM3 (150-450) Mean Platelet Volume 7.3 FL (7.0-11.0) Sodium Level 133 MEQ/L (136-145) Potassium Level 4.7 MEQ/L (3.5-5.1) Chloride Level 97 MEQ/L (98-107) Carbon Dioxide Level 28.1 MEQ/L (21.0-32.0) Anion Gap 8 MEQ/L (5-15) Blood Urea Nitrogen 5 MG/DL (7-18) Creatinine 0.61 MG/DL (0.50-1.00) Estimat Glomerular Filtration 96 ML/MIN (>89) Rate Random Glucose 91 MG/DL (74-106) Calcium Level 8.5 MG/DL (8.5-10.1) Result Diagram: 08/01/16 0804 08/01/16 0809 Tam Escobedo MD August 01, 2016 14:59
[2016-08-01] MEDS: SODIUM CHLOR 0.9% 1000 ML INJ 1,000 ML IV SCH (15:34)
[2016-08-01 16:00] VITALS: BP 118/82; PULSE 80; RESP 18; TEMP 97.5; O2SAT 99
[2016-08-01] MEDS ORDERED: OXYC-392 PO (16:47)
--- NOTE | 2016-08-01 16:47 | HHI.DCPOC ---
Discharge Care Plan Diagnosis: (1) Postprocedural seroma of a respiratory system organ or structure following a respiratory system procedure Your Health Problems Are: Chest Pain Shortness of Breath Goals to Promote Your Health * To prevent worsening of your condition and complications * To maintain your health at the optimal level Directions to Meet Your Goals Take your medications as prescribed Follow your dietary instruction Follow activity as directed Keep your appointments as scheduled Take your immunizations and boosters as scheduled If your symptoms worsen call your PCP, if no PCP go to Urgent Care Center or Emergency Room Smoking is Dangerous to Your Health. Avoid second hand smoke Call the 24-hour hour crisis hotline for domestic abuse at Bandar Roldan MD August 01, 2016 16:47
[2016-08-01 20:35] VITALS: BP 120/68; PULSE 99; RESP 18; TEMP 96.9; O2SAT 100
[2016-08-02 00:40] VITALS: BP 116/70; PULSE 85; RESP 18; TEMP 96.9; O2SAT 99
[2016-08-02] MEDS: guaiFENesin/CODEINE SYRUP 200 MG/20 MG/10 ML CUP PO PRN ×4 (03:59→22:32)
[2016-08-02 04:00] VITALS: BP 120/78; PULSE 82; RESP 18; TEMP 96.2; O2SAT 97
[2016-08-02] MEDS: INSULIN ASPART SUPPLEMENTAL SCALE SQ SCH (05:50)
[2016-08-02] MEDS: DOCUSATE SODIUM 50 MG/SENNA 8.6 MG TAB PO SCH (07:35)
[2016-08-02] MEDS: METOPROLOL TARTRATE 100 MG TAB PO SCH ×2 (07:35→20:10)
[2016-08-02] MEDS: COLCHICINE 0.6 MG TAB PO SCH (07:35)
[2016-08-02] MEDS: AMIODARONE 200 MG TAB PO SCH (07:35)
[2016-08-02 08:35] VITALS: BP 119/67; PULSE 79; RESP 15; TEMP 97.1; O2SAT 96
--- NOTE | 2016-08-02 11:35 | HHI.PR ---
Subjective Remarks resting comfortably with no distress. pain is controlled. has some sob with ambulation but she says that it's getting better. d/w the RN. Objective Vitals Vital Signs Date Time Temp Pulse Resp B/P Pulse Ox O2 Delivery O2 Flow Rate FiO2 08/02/16 08:35 97.1 79 15 119/67 96 08/02/16 04:00 96.2 82 18 120/78 97 08/02/16 00:40 96.9 85 18 116/70 99 08/01/16 20:35 96.9 99 18 120/68 100 08/01/16 16:00 97.5 80 18 118/82 99 08/01/16 12:00 97.2 80 18 112/71 99 08/01/16 11:54 18 I/O 08/01/16 08/01/16 08/01/16 08/02/16 08/02/16 08/02/16 07:00 15:00 23:00 07:00 15:00 23:00 Intake Total 240 ml 700 ml 240 ml 480 ml Output Total 0 ml Balance 240 ml 700 ml 240 ml 480 ml Intake Oral 240 ml 700 ml 240 ml 480 ml Chest Tube Drainage Total 0 ml # Voids 2 4 2 2 # Bowel Movements 0 2 1 0 Result Diagram: 08/01/16 0804 08/01/16 0809 Imaging Last Impressions Chest X-Ray 08/01/16 0000 Signed Impressions: Service Date/Time: Monday, August 01, 2016 14:01 - CONCLUSION: No pneumothorax following chest tube removal. Stable right lower lobe atelectasis versus infiltrate. Brent Cervantes Jr., MD Chest CT 07/26/16 0000 Signed Impressions: Service Date/Time: Tuesday, July 26, 2016 12:39 - CONCLUSION: 1. Interval placement of percutaneous right pigtail drainage catheter with mild decrease in the size of the right pleural effusion and higher density hemorrhage. There is a moderate residual. 2. Minimal left effusion. Chriss Smith MD Chest Tube Insertion 07/24/16 0000 Signed Impressions: Service Date/Time: Sunday, July 24, 2016 17:27 - CONCLUSION: Uncomplicated chest tube placement as above. Roe Donald MD Objective Remarks GENERAL: This is a well-nourished, well-developed patient, in no apparent distress. CARDIOVASCULAR: Regular rate and regular rhythm without murmurs, gallops, or rubs. RESPIRATORY: bilateral air entry present. GASTROINTESTINAL: Abdomen soft, non-tender, nondistended. Normal, active bowel sounds MUSCULOSKELETAL: Extremities without clubbing, cyanosis, or edema. NEURO: Alert & Oriented x4 to person, place, time, situation. Moves all ext x4 Procedures thoracoscopy chest tube insertion Medications and IVs Current Medications Sodium Chloride (NS Flush) 2 ml UNSCH PRN IV FLUSH FLUSH AFTER USING IV ACCESS ; Start 07/22/16 at 07:30 Sodium Chloride (NS Flush) 2 ml BID IV FLUSH Last administered on 08/01/16 21: 00; Start 07/22/16 at 09:00 Acetaminophen (Tylenol) 650 mg Q4H PRN PO FEVER Last administered on 07/28/16 16:44; Start 07/22/16 at 07:30 Ondansetron HCl (Zofran Inj) 4 mg Q6H PRN IVP NAUSEA OR VOMITING; Start at 07:30 Magnesium Hydroxide (Milk Of [employer] Liq) 30 ml Q12H PRN PO CONSTIPATION Last administered on 07/31/16 22:10; Start 07/22/16 at 07:30 Naloxone HCl (Narcan Inj) 0.4 mg UNSCH PRN IV SEE LABEL COMMENTS; Start at 07:30 Sodium Chloride (NS Flush) 2 ml BID IV FLUSH ; Start 07/22/16 at 09:00; Status UNV Sodium Chloride (NS Flush) 2 ml UNSCH PRN IVF FLUSH AFTER USING IV ACCESS; Start 07/22/16 at 07:30; Status UNV Clonazepam (KlonoPIN) 0.5 mg Q8HR PRN PO Anxiety Last administered on 20:52; Start 07/22/16 at 16:15; Stop 07/23/16 at 07:37; Status DC Amiodarone HCl (Cordarone) 400 mg BID PO Last administered on 08/02/16 07:35; Start 07/22/16 at 21:00 Colchicine (Colchicine) 0.3 mg DAILY PO Last administered on 08/02/16 07:35; Start 07/23/16 at 09:00 Metoprolol Tartrate (Lopressor) 100 mg BID PO Last administered on 08/02/16 07: 35; Start 07/22/16 at 21:00 Miscellaneous (Pill Splitter) 1 ea UNSCH PRN OTHER SEE LABEL COMMENTS; Start at 16:30 Clonazepam (KlonoPIN) 0.25 mg Q8H PRN PO Anxiety Last administered on 08/01/16 09:15; Start 07/23/16 at 07:45 Guaifenesin/ Codeine Phosphate (Robitussin Ac 200-20 Mg/10 ml Liq) 10 ml Q6H PRN PO Cough Last administered on 08/02/16 10:08; Start 07/23/16 at 09:30 Furosemide (Lasix Inj) 20 mg BID@,18 IV PUSH Last administered on 07/24/16 10:13; Start 07/23/16 at 18:00; Stop 07/24/16 at 17:59; Status DC Furosemide (Lasix Inj) 20 mg ONCE ONCE IV PUSH Last administered on 07/23/16 11:45; Start 07/23/16 at 11:00; Stop 07/23/16 at 11:01; Status DC Lidocaine/ Epinephrine (Xylocaine-Epi 1%-1:100,000 Inj) 20 ml STK-MED ONCE .ROUTE Last administered on 07/24/16 16:58; Start 07/24/16 at 16:58; Stop at 16:59; Status DC Fentanyl Citrate (fentaNYL INJ) 250 mcg STK-MED ONCE .ROUTE Last administered on 07/24/16 17:00; Start 07/24/16 at 17:00; Stop 07/24/16 at 17:01; Status DC Lorazepam (Ativan Inj) 2 mg STK-MED ONCE .ROUTE Last administered on 07/24/16 17:00; Start 07/24/16 at 17:00; Stop 07/24/16 at 17:01; Status DC Acetaminophen/ Hydrocodone Bitart ([place] 5-325 Mg) 1 tab Q4H PRN PO PAIN < 5 Last administered on 07/26/16 09:41; Start 07/25/16 at 08:45; Stop 07/27/16 at 18:21; Status DC Acetaminophen/ Hydrocodone Bitart ([place] 5-325 Mg) 2 tab Q4H PRN PO PAIN 5 OR GREATER Last administered on 07/27/16 06:48; Start 07/25/16 at 08:45; Stop at 18:21; Status DC Hydromorphone HCl (Dilaudid Pf Inj) 0.2 mg Q4H PRN IV PUSH BREAKTHROUGH PAIN Last administered on 07/26/16 10:27; Start 07/25/16 at 08:45; Stop 07/27/16 at 18:29; Status DC Docusate Sodium 100 mg 100 mg BID PRN PO CONSTIPATION Last administered on 07/28 20:43; Start 07/25/16 at 08:45; Stop 07/29/16 at 15:05; Status DC Cefazolin Sodium/ Dextrose (Ancef 2 Gm Premix) 50 ml @ 100 mls/hr MEASUREMENT TECHNICIAN IV Last administered on 07/27/16 12:03; Start 07/26/16 at 14:30; Stop 07/29/16 at 14:29; Status DC Bupivacaine HCl/ Epinephrine Bitart (Marcaine-Epi Pf 0.25% Inj) 30 ml STK-MED ONCE .ROUTE ; Start 07/27/16 at 11:41; Stop 07/27/16 at 11:42; Status DC Bupivacaine HCl (Marcaine Pf 0.25% Inj) 30 ml STK-MED ONCE .ROUTE ; Start at 11:41; Stop 07/27/16 at 11:42; Status DC Gentamicin Sulfate (Gentamicin Inj) 240 mg STK-MED ONCE .ROUTE ; Start 07/27/16 at 11:41; Stop 07/27/16 at 11:42; Status DC Famotidine (Pepcid Inj) 20 mg STK-MED ONCE .ROUTE ; Start 07/27/16 at 12:51; Stop 07/27/16 at 12:52; Status DC Midazolam HCl (Versed Inj) 2 mg STK-MED ONCE .ROUTE ; Start 07/27/16 at 12:52; Stop 07/27/16 at 12:53; Status DC Dexamethasone Sodium Phosphate (Decadron Inj) 4 mg STK-MED ONCE .ROUTE ; Start 07/27/16 at 12:52; Stop 07/27/16 at 12:53; Status DC Acetaminophen (Ofirmev Inj) 1,000 mg STK-MED ONCE IV ; Start 07/27/16 at 12:52; Stop 07/27/16 at 12:53; Status DC Talc (Sterile Talc Powder 5 Gm) 5 gm STK-MED ONCE I-CAVITARY Last administered on 07/27/16 14:05; Start 07/27/16 at 14:05; Stop 07/27/16 at 14:06; Status DC Hydromorphone HCl (*DILAUDID PF INJ PERIprocedural ONLY) 1 mg STK-MED ONCE .ROUTE Last administered on 07/27/16 15:22; Start 07/27/16 at 15:22; Stop at 15:23; Status DC Fentanyl Citrate (fentaNYL INJ) 250 mcg STK-MED ONCE .ROUTE ; Start 07/27/16 at 15:23; Stop 07/27/16 at 15:24; Status DC Miscellaneous Information ALL NURSING DEPARTME... UNSCH PRN .XX SEE LABEL COMMENTS; Start 07/27/16 at 15:45; Stop 07/28/16 at 15:44; Status DC Hydromorphone HCl (*DILAUDID PF INJ PERIprocedural ONLY) 1 mg STK-MED ONCE .ROUTE Last administered on 07/27/16 15:41; Start 07/27/16 at 15:41; Stop at 15:42; Status DC Naloxone HCl (Narcan Inj) 0.4 mg UNSCH PRN IV RESPIRATORY RATE LESS THAN 10; Start 07/27/16 at 16:00; Stop 07/27/16 at 18:23; Status DC Morphine Sulfate (Morphine 1 Mg/ ml WEARING APPAREL PRESSER) 30 mg UNSCH IV Last administered on 16:55; Start 07/27/16 at 16:00; Stop 07/27/16 at 18:23; Status DC WEARING APPAREL PRESSER Dosage Infused (Pha) 1 Q8HR .XX ; Start 07/27/16 at 16:00; Stop 07/27/16 at 18:23; Status DC Hydromorphone HCl (*DILAUDID PF INJ PERIprocedural ONLY) 1 mg STK-MED ONCE .ROUTE Last administered on 07/27/16 15:58; Start 07/27/16 at 15:58; Stop at 15:59; Status DC Acetaminophen (Ofirmev Inj) 1,000 mg Q6H IV Last administered on 07/28/16 14: 00; Start 07/27/16 at 20:00; Stop 07/28/16 at 19:59; Status DC Ketorolac Tromethamine (Toradol Inj) 15 mg Q6H IV PUSH Last administered on 15:41; Start 07/27/16 at 22:00; Stop 07/30/16 at 21:59; Status DC Oxycodone HCl (Roxicodone) 5 mg Q6H PRN PO PAIN SCALE 7 TO 10 Last administered on 08/02/16 10:09; Start 07/27/16 at 18:30 Fentanyl Citrate 50 mcg 50 mcg Q2H PRN IV PUSH PAIN SCALE 7 TO 10 Last administered on 07/27/16 21:13; Start 07/27/16 at 18:30 Sodium Chloride (NS 1000 ml Inj) 1,000 ml @ 42 mls/hr [id number] IV Last administered on 07/27/16 21:05; Start 07/27/16 at 18:30 Insulin Aspart (NovoLOG SUPPLEMENTAL SCALE) 1 ACHS SLIDING SCALE SQ ; Start at 21:00 Dextrose (D50w (Vial) Inj) 25 ml UNSCH PRN IV PUSH HYPOGLYCEMIA-SEE COMMENTS; Start 07/27/16 at 18:45 Glucagon (Glucagon Inj) 1 mg UNSCH PRN OTHER HYPOGLYCEMIA-SEE COMMENTS; Start 07/27/16 at 18:45 Albuterol/ Ipratropium (Duoneb Neb) 1 ampule Q6HR NEB PRN NEB WHEEZING; Start 07/27/16 at 18:45 Senna/Docusate Sodium (Meagan-Colace) 1 tab DAILY PO Last administered on 07:35; Start 07/29/16 at 15:15 Morphine Sulfate (Morphine Inj) 1 mg NOW ONCE IV PUSH ; Start 08/01/16 at 11:30 ; Stop 08/01/16 at 11:31; Status DC A/P Assessment and Plan Postoperative pain - Roxicodone 5mg PO q6hr PRN - monitor respiratory status CVT surgery consulted: Hemopneumothorax with lung entrapment Status post right VATS with chest tube placement chest tubes have been removed. Maintain O2 sat greater than 92%. Wean O2 as tolerated Incentive spirometry every hour while awake Bronchodilators when necessary CT surgery follow-up appreciated. atrial fibrillation; S/P cardiac ablation 07/2016 Telemetry NSR Apixiban on hold Continue amiodarone and metoprolol will consult - per the patient's request. Heart healthy diet Bowel regimen DVT Prophylaxis: SCDs Discharge Planning likely dc home tomorrow if stable. Bandar Roldan MD August 02, 2016 11:35
--- NOTE | 2016-08-02 11:36 | HHI.FF ---
Face to Face Verification Diagnosis: (1) Atrial fibrillation (2) Postprocedural seroma of a respiratory system organ or structure following a respiratory system procedure Physical Therapy Order: Evaluate and Treat Home Health Nursing Order: Medical education Signs/symptoms of disease process Nursing assessment with vital signs I have seen patient Kassie Gracia on 08/02/16. My clinical findings support the need for the requested home health care services because: Ltd mobility - disease progression I certify that my clinical findings support that this patient is homebound because: Unsteady gait/balance Bandar Roldan MD August 02, 2016 11:36
[2016-08-02 12:05] VITALS: BP 96/56; PULSE 78; RESP 14; TEMP 97.4; O2SAT 100
[2016-08-02] MEDS: MAGNESIUM HYDROXIDE SUSP 30 ML CUP PO PRN (16:33)
[2016-08-02 17:02] VITALS: BP 111/67; PULSE 74; RESP 15; TEMP 97.4; O2SAT 99
--- NOTE | 2016-08-02 18:14 | MB ---
cc: JANES BRYANT MD DATE OF CONSULTATION 08/02/16 HISTORY OF PRESENT ILLNESS Ms. Gracia is a very pleasant 76-year-old white female well known to my practice with history of atrial fibrillation and recent ablation and then sent to hospital complicated by hemopneumothorax. She was started on Apixaban and developed bleeding from chest tube site. She underwent right VATS with chest tube placement which has been now removed. She is feeling better. She is now stable from CT surgery standpoint. Discharge is planned for tomorrow. The patient stays in sinus rhythm. She has not had any angina or heart failure symptoms. PAST MEDICAL HISTORY Positive for atrial fibrillation, recent ablation, cardiomyopathy with mild left ventricular systolic dysfunction. Congestive heart failure. Moderate mitral regurgitation. Moderate tricuspid regurgitation. Mild pulmonary hypertension. Elevated liver function tests. MEDICATIONS Medications include: 1. Meagan-Colace. 2. Roxicodone p.r.n. 3. Fentanyl p.r.n. 4. Colchicine. 5. Klonopin. 6. Amiodarone 400 milligrams twice a day. 7. Metoprolol 100 milligrams twice a day. ALLERGIES None. SOCIAL HISTORY The patient does not smoke. She drinks alcohol occasionally. FAMILY HISTORY Negative for heart disease. REVIEW OF SYSTEMS The review of systems is otherwise negative. PHYSICAL EXAMINATION VITAL SIGNS: Blood pressure 96/56, pulse 78 and regular. HEENT: Negative, 2+ carotid upstrokes. No bruits. LUNGS: Clear. HEART: Irregular with no murmur, gallop. ABDOMEN: Soft. No bruits. EXTREMITIES: Without edema. 2+ distal pulses. NEUROLOGIC: Grossly nonfocal. CARDIOLOGY STUDIES EKG was reviewed and showed normal sinus rhythm. PACs, right axis and nonspecific STT changes. LABORATORY DATA Hemoglobin 10.4, potassium 4.7, creatinine 0.6. DIAGNOSIS 1. Atrial fibrillation. 2. Status post cardiac ablation complicated by hemopneumothorax. 3. Status post chest tube placement. 4. Cardiomyopathy. 5. Congestive heart failure, class II. 6. Moderate mitral regurgitation. 7. Moderate tricuspid regurgitation. 8. Mild pulmonary hypertension. DISPOSITION Ms. Gracia will continue her current medical program. She has stayed in sinus rhythm after her ablation. We will continue therapy with amiodarone, the dose will be now decreased to 400 milligrams a day. She can be discharged home tomorrow if stable. I will see her back for followup in our office as an outpatient shortly after discharge. MD STEPHEN Berman/CAMILO /4:46 PM /5:53 PM MARY
[2016-08-02] MEDS: SODIUM CHLORIDE 0.9% FLUSH 10 ML FLUSH IV FLUSH SCH (20:11)
[2016-08-02 20:25] VITALS: BP 99/66; PULSE 81; RESP 17; TEMP 95.6; O2SAT 99
[2016-08-03] VITALS: BP 100/65; PULSE 87; RESP 20; TEMP 97.9; O2SAT 94
[2016-08-03] MEDS: guaiFENesin/CODEINE SYRUP 200 MG/20 MG/10 ML CUP PO PRN ×3 (04:26→17:10)
--- NOTE | 2016-08-03 07:15 | RADRPT ---
EXAM DATE/TIME: 08/03/2016 06:18 [facility] COMPARISON: CHEST SINGLE AP, August 01, 2016, 14:01. INDICATIONS : Status post thoracoscopy , post removal of chest tube from right side MEDICAL HISTORY : pneumothorax SURGICAL HISTORY : Tonsillectomy. cardiac ablation ENCOUNTER: Subsequent ACUITY: 1 week PAIN SCORE: 8/10 LOCATION: Right chest FINDINGS: A single AP portable erect view of the chest was obtained and demonstrates consolidation at the right lung base with blunting of the costophrenic angle. There is no pneumothorax. The left lung is clear. The heart size is at the upper limits of normal. The bony thorax is intact. There is a mild scoliosi s. CONCLUSION: 1. Consolidation at the right lung base which appears mildly increased. There is a small right effusi on. 2. No pneumothorax. Chriss Smith MD on August 03, 2016 at 7:12 Board Certified Radiologist. This report was verified electronically.
[2016-08-03 07:37] VITALS: BP 103/64; PULSE 88; RESP 17; TEMP 97.6; O2SAT 95
[2016-08-03] MEDS: COLCHICINE 0.6 MG TAB PO SCH (08:39)
[2016-08-03] MEDS: DOCUSATE SODIUM 50 MG/SENNA 8.6 MG TAB PO SCH (08:40)
[2016-08-03] MEDS: SODIUM CHLORIDE 0.9% FLUSH 10 ML FLUSH IV FLUSH SCH (08:44)
[2016-08-03] MEDS: METOPROLOL TARTRATE 100 MG TAB PO SCH (08:44)
[2016-08-03] MEDS ORDERED: AMIODARONE 200 MG TAB PO SCH (09:00)
[2016-08-03] MEDS ORDERED: AMIO400T PO (10:15)
--- NOTE | 2016-08-03 10:20 | HHI.PR ---
Subjective Remarks walking in the room with no sob. pain is controlled. no new complaints. Objective Vitals Vital Signs Date Time Temp Pulse Resp B/P Pulse Ox O2 Delivery O2 Flow Rate FiO2 08/03/16 07:37 97.6 88 17 103/64 95 08/03/16 00:00 97.9 87 20 100/65 94 08/02/16 20:25 95.6 81 17 99/66 99 08/02/16 17:02 97.4 74 15 111/67 99 08/02/16 12:05 97.4 78 14 96/56 100 I/O 08/02/16 08/02/16 08/02/16 08/03/16 08/03/16 08/03/16 07:00 15:00 23:00 07:00 15:00 23:00 Intake Total 480 ml 1160 ml 120 ml Balance 480 ml 1160 ml 120 ml Intake Oral 480 ml 1160 ml 120 ml # Voids 2 8 2 # Bowel Movements 0 0 0 Result Diagram: 08/01/16 0804 08/01/16 0809 Imaging Last Impressions Chest X-Ray 08/03/16 0600 Signed Impressions: Service Date/Time: July 06:18 - CONCLUSION: 1. Consolidation at the right lung base which appears mildly increased. There is a small right effusion. 2. No pneumothorax. Chriss Smith MD Chest CT 07/26/16 0000 Signed Impressions: Service Date/Time: Tuesday, July 26, 2016 12:39 - CONCLUSION: 1. Interval placement of percutaneous right pigtail drainage catheter with mild decrease in the size of the right pleural effusion and higher density hemorrhage. There is a moderate residual. 2. Minimal left effusion. Chriss Smith MD Chest Tube Insertion 07/24/16 0000 Signed Impressions: Service Date/Time: Sunday, July 24, 2016 17:27 - CONCLUSION: Uncomplicated chest tube placement as above. Roe Donald MD Objective Remarks GENERAL: This is a well-nourished, well-developed patient, in no apparent distress. CARDIOVASCULAR: Regular rate and regular rhythm without murmurs, gallops, or rubs. RESPIRATORY: bilateral air entry present. GASTROINTESTINAL: Abdomen soft, non-tender, nondistended. Normal, active bowel sounds MUSCULOSKELETAL: Extremities without clubbing, cyanosis, or edema. NEURO: Alert & Oriented x4 to person, place, time, situation. Moves all ext x4 Procedures thoracoscopy chest tube insertion Medications and IVs Current Medications Sodium Chloride (NS Flush) 2 ml UNSCH PRN IV FLUSH FLUSH AFTER USING IV ACCESS ; Start 07/22/16 at 07:30 Sodium Chloride (NS Flush) 2 ml BID IV FLUSH Last administered on 08/03/16 08: 44; Start 07/22/16 at 09:00 Acetaminophen (Tylenol) 650 mg Q4H PRN PO FEVER Last administered on 07/28/16 16:44; Start 07/22/16 at 07:30 Ondansetron HCl (Zofran Inj) 4 mg Q6H PRN IVP NAUSEA OR VOMITING; Start at 07:30 Magnesium Hydroxide (Milk Of Magnesia Liq) 30 ml Q12H PRN PO CONSTIPATION Last administered on 08/02/16 16:33; Start 07/22/16 at 07:30 Naloxone HCl (Narcan Inj) 0.4 mg UNSCH PRN IV SEE LABEL COMMENTS; Start at 07:30 Sodium Chloride (NS Flush) 2 ml BID IV FLUSH ; Start 07/22/16 at 09:00; Status UNV Sodium Chloride (NS Flush) 2 ml UNSCH PRN IVF FLUSH AFTER USING IV ACCESS; Start 07/22/16 at 07:30; Status UNV Clonazepam (KlonoPIN) 0.5 mg Q8HR PRN PO Anxiety Last administered on 20:52; Start 07/22/16 at 16:15; Stop 07/23/16 at 07:37; Status DC Amiodarone HCl (Cordarone) 400 mg BID PO Last administered on 08/02/16 07:35; Start 07/22/16 at 21:00; Stop 08/02/16 at 16:50; Status DC Colchicine (Colchicine) 0.3 mg DAILY PO Last administered on 08/03/16 08:39; Start 07/23/16 at 09:00 Metoprolol Tartrate (Lopressor) 100 mg BID PO Last administered on 08/02/16 07: 35; Start 07/22/16 at 21:00 Miscellaneous (Pill Splitter) 1 ea UNSCH PRN OTHER SEE LABEL COMMENTS; Start at 16:30 Clonazepam (KlonoPIN) 0.25 mg Q8H PRN PO Anxiety Last administered on 08/01/16 09:15; Start 07/23/16 at 07:45 Guaifenesin/ Codeine Phosphate (Robitussin Ac 200-20 Mg/10 ml Liq) 10 ml Q6H PRN PO Cough Last administered on 08/03/16 04:26; Start 07/23/16 at 09:30 Furosemide (Lasix Inj) 20 mg BID@,18 IV PUSH Last administered on 07/24/16 10:13; Start 07/23/16 at 18:00; Stop 07/24/16 at 17:59; Status DC Furosemide (Lasix Inj) 20 mg ONCE ONCE IV PUSH Last administered on 07/23/16 11:45; Start 07/23/16 at 11:00; Stop 07/23/16 at 11:01; Status DC Lidocaine/ Epinephrine (Xylocaine-Epi 1%-1:100,000 Inj) 20 ml STK-MED ONCE .ROUTE Last administered on 07/24/16 16:58; Start 07/24/16 at 16:58; Stop at 16:59; Status DC Fentanyl Citrate (fentaNYL INJ) 250 mcg STK-MED ONCE .ROUTE Last administered on 07/24/16 17:00; Start 07/24/16 at 17:00; Stop 07/24/16 at 17:01; Status DC Lorazepam (Ativan Inj) 2 mg STK-MED ONCE .ROUTE Last administered on 07/24/16 17:00; Start 07/24/16 at 17:00; Stop 07/24/16 at 17:01; Status DC Acetaminophen/ Hydrocodone Bitart ([place] 5-325 Mg) 1 tab Q4H PRN PO PAIN < 5 Last administered on 07/26/16 09:41; Start 07/25/16 at 08:45; Stop 07/27/16 at 18:21; Status DC Acetaminophen/ Hydrocodone Bitart ([place] 5-325 Mg) 2 tab Q4H PRN PO PAIN 5 OR GREATER Last administered on 07/27/16 06:48; Start 07/25/16 at 08:45; Stop at 18:21; Status DC Hydromorphone HCl (Dilaudid Pf Inj) 0.2 mg Q4H PRN IV PUSH BREAKTHROUGH PAIN Last administered on 07/26/16 10:27; Start 07/25/16 at 08:45; Stop 07/27/16 at 18:29; Status DC Docusate Sodium 100 mg 100 mg BID PRN PO CONSTIPATION Last administered on 07/28 20:43; Start 07/25/16 at 08:45; Stop 07/29/16 at 15:05; Status DC Cefazolin Sodium/ Dextrose (Ancef 2 Gm Premix) 50 ml @ 100 mls/hr PHARMACY INTAKE COORDINATOR IV Last administered on 07/27/16 12:03; Start 07/26/16 at 14:30; Stop 07/29/16 at 14:29; Status DC Bupivacaine HCl/ Epinephrine Bitart (Marcaine-Epi Pf 0.25% Inj) 30 ml STK-MED ONCE .ROUTE ; Start 07/27/16 at 11:41; Stop 07/27/16 at 11:42; Status DC Bupivacaine HCl (Marcaine Pf 0.25% Inj) 30 ml STK-MED ONCE .ROUTE ; Start at 11:41; Stop 07/27/16 at 11:42; Status DC Gentamicin Sulfate (Gentamicin Inj) 240 mg STK-MED ONCE .ROUTE ; Start 07/27/16 at 11:41; Stop 07/27/16 at 11:42; Status DC Famotidine (Pepcid Inj) 20 mg STK-MED ONCE .ROUTE ; Start 07/27/16 at 12:51; Stop 07/27/16 at 12:52; Status DC Midazolam HCl (Versed Inj) 2 mg STK-MED ONCE .ROUTE ; Start 07/27/16 at 12:52; Stop 07/27/16 at 12:53; Status DC Dexamethasone Sodium Phosphate (Decadron Inj) 4 mg STK-MED ONCE .ROUTE ; Start 07/27/16 at 12:52; Stop 07/27/16 at 12:53; Status DC Acetaminophen (Ofirmev Inj) 1,000 mg STK-MED ONCE IV ; Start 07/27/16 at 12:52; Stop 07/27/16 at 12:53; Status DC Talc (Sterile Talc Powder 5 Gm) 5 gm STK-MED ONCE I-CAVITARY Last administered on 07/27/16 14:05; Start 07/27/16 at 14:05; Stop 07/27/16 at 14:06; Status DC Hydromorphone HCl (*DILAUDID PF INJ PERIprocedural ONLY) 1 mg STK-MED ONCE .ROUTE Last administered on 07/27/16 15:22; Start 07/27/16 at 15:22; Stop at 15:23; Status DC Fentanyl Citrate (fentaNYL INJ) 250 mcg STK-MED ONCE .ROUTE ; Start 07/27/16 at 15:23; Stop 07/27/16 at 15:24; Status DC Miscellaneous Information ALL NURSING DEPARTME... UNSCH PRN .XX SEE LABEL COMMENTS; Start 07/27/16 at 15:45; Stop 07/28/16 at 15:44; Status DC Hydromorphone HCl (*DILAUDID PF INJ PERIprocedural ONLY) 1 mg STK-MED ONCE .ROUTE Last administered on 07/27/16 15:41; Start 07/27/16 at 15:41; Stop at 15:42; Status DC Naloxone HCl (Narcan Inj) 0.4 mg UNSCH PRN IV RESPIRATORY RATE LESS THAN 10; Start 07/27/16 at 16:00; Stop 07/27/16 at 18:23; Status DC Morphine Sulfate (Morphine 1 Mg/ ml CLINICAL RN MANAGER) 30 mg UNSCH IV Last administered on 16:55; Start 07/27/16 at 16:00; Stop 07/27/16 at 18:23; Status DC CLINICAL RN MANAGER Dosage Infused (Pha) 1 Q8HR .XX ; Start 07/27/16 at 16:00; Stop 07/27/16 at 18:23; Status DC Hydromorphone HCl (*DILAUDID PF INJ PERIprocedural ONLY) 1 mg STK-MED ONCE .ROUTE Last administered on 07/27/16 15:58; Start 07/27/16 at 15:58; Stop at 15:59; Status DC Acetaminophen (Ofirmev Inj) 1,000 mg Q6H IV Last administered on 07/28/16 14: 00; Start 07/27/16 at 20:00; Stop 07/28/16 at 19:59; Status DC Ketorolac Tromethamine (Toradol Inj) 15 mg Q6H IV PUSH Last administered on 15:41; Start 07/27/16 at 22:00; Stop 07/30/16 at 21:59; Status DC Oxycodone HCl (Roxicodone) 5 mg Q6H PRN PO PAIN SCALE 7 TO 10 Last administered on 08/03/16 04:26; Start 07/27/16 at 18:30 Fentanyl Citrate 50 mcg 50 mcg Q2H PRN IV PUSH PAIN SCALE 7 TO 10 Last administered on 07/27/16 21:13; Start 07/27/16 at 18:30 Sodium Chloride (NS 1000 ml Inj) 1,000 ml @ 42 mls/hr [id number] IV Last administered on 07/27/16 21:05; Start 07/27/16 at 18:30 Insulin Aspart (NovoLOG SUPPLEMENTAL SCALE) 1 ACHS SLIDING SCALE SQ ; Start at 21:00; Stop 08/02/16 at 13:10; Status DC Dextrose (D50w (Vial) Inj) 25 ml UNSCH PRN IV PUSH HYPOGLYCEMIA-SEE COMMENTS; Start 07/27/16 at 18:45; Stop 08/02/16 at 13:10; Status DC Glucagon (Glucagon Inj) 1 mg UNSCH PRN OTHER HYPOGLYCEMIA-SEE COMMENTS; Start 07/27/16 at 18:45; Stop 08/02/16 at 13:10; Status DC Albuterol/ Ipratropium (Duoneb Neb) 1 ampule Q6HR NEB PRN NEB WHEEZING; Start 07/27/16 at 18:45 Senna/Docusate Sodium (Meagan-Colace) 1 tab DAILY PO Last administered on 08:40; Start 07/29/16 at 15:15 Morphine Sulfate (Morphine Inj) 1 mg NOW ONCE IV PUSH ; Start 08/01/16 at 11:30 ; Stop 08/01/16 at 11:31; Status DC Amiodarone HCl (Cordarone) 400 mg DAILY PO Last administered on 08/03/16 08:40 ; Start 08/03/16 at 09:00 A/P Assessment and Plan A/P - hemothorax - s/p ablation for atrial fibrillation CVT surgery consulted: Hemopneumothorax with lung entrapment Status post right VATS with chest tube placement Incentive spirometry every hour while awake Bronchodilators when necessary CT surgery cleared for discharge. atrial fibrillation; S/P cardiac ablation 07/2016 Telemetry NSR Apixiban on hold Continue amiodarone ; the dose of which was decreased to 400 mg po daily- continue metoprolol cardiology consult appreciated- f/u as outpatient. DVT Prophylaxis: SCDs Discharge Planning dc home today with [facility]HC. see med list. f/u with pcp, cardiology and vascular surgery. d/w the patient and RN. d/w the case management. previously d/w . time spent 35 min. Bandar Roldan MD August 03, 2016 10:20
--- NOTE | 2016-08-03 10:24 | HHI.DS ---
Discharge Summary Admission Date Jul 23, 2016 at 12:12 Discharge Date: August 03, 2016 Admitting Diagnosis Post chest tube bleeding w/ anticoagulation (1) Postprocedural seroma of a respiratory system organ or structure following a respiratory system procedure ICD Code: J95.862 Diagnosis: Principal (2) Atrial fibrillation ICD Code: I48.91 Diagnosis: Secondary Procedures thoracoscopy chest tube insertion Brief History - From Admission Ms. Gracia is a pleasant 76-year-old female with a history of atrial fibrillation who presented to the emergency department on 07/22/2016 due to blood on the large from her chest tube removal site. Patient was admitted at [facility] in [place] for cardiac ablation for atrial fibrillation. . Procedure patient had complication of hemopneumothorax and she required chest tube insertion. Patient was discharged from the hospital on 07/21. She was advised to continue apixaban which she tube in the morning at the hospital on 07/21/2016. At the time of this interview, patient is doing well. No chest pain, shortness of breath, fever or chills. She reports no further bleeding from the chest tube removal site. Patient follows up with sales service technician Dr. Somers. CBC/BMP: 08/01/16 0804 08/01/16 0809 Significant Findings Laboratory Tests Test 08/01/16 08/01/16 08:04 08:09 Red Blood Count 3.26 MIL/MM3 (4.00-5.30) Hemoglobin 10.4 GM/DL (11.6-15.3) Hematocrit 30.3 % (35.0-46.0) Platelet Count 614 TH/MM3 (150-450) Sodium Level 133 MEQ/L (136-145) Chloride Level 97 MEQ/L (98-107) Blood Urea Nitrogen 5 MG/DL (7-18) Imaging Last Impressions Chest X-Ray 08/03/16 0600 Signed Impressions: Service Date/Time: July 06:18 - CONCLUSION: 1. Consolidation at the right lung base which appears mildly increased. There is a small right effusion. 2. No pneumothorax. Chriss Smith MD Chest CT 07/26/16 0000 Signed Impressions: Service Date/Time: Tuesday, July 26, 2016 12:39 - CONCLUSION: 1. Interval placement of percutaneous right pigtail drainage catheter with mild decrease in the size of the right pleural effusion and higher density hemorrhage. There is a moderate residual. 2. Minimal left effusion. Chriss Smith MD Chest Tube Insertion 07/24/16 0000 Signed Impressions: Service Date/Time: Sunday, July 24, 2016 17:27 - CONCLUSION: Uncomplicated chest tube placement as above. Roe Donald MD PE at Discharge GENERAL: This is a well-nourished, well-developed patient, in no apparent distress. CARDIOVASCULAR: Regular rate and regular rhythm without murmurs, gallops, or rubs. RESPIRATORY: bilateral air entry present. GASTROINTESTINAL: Abdomen soft, non-tender, nondistended. Normal, active bowel sounds MUSCULOSKELETAL: Extremities without clubbing, cyanosis, or edema. NEURO: Alert & Oriented x4 to person, place, time, situation. Moves all ext x4 Hospital Course - hemothorax - s/p ablation for atrial fibrillation CVT surgery consulted: Hemopneumothorax with lung entrapment Status post right VATS with chest tube placement Incentive spirometry every hour while awake Bronchodilators when necessary CT surgery cleared for discharge. atrial fibrillation; S/P cardiac ablation 07/2016 Telemetry NSR Apixiban on hold Continue amiodarone ; the dose of which was decreased to 400 mg po daily- continue metoprolol cardiology consult appreciated- f/u as outpatient. DVT Prophylaxis: SCDs Pt Condition on Discharge: Fair Discharge Disposition: Disch w/ Home Health Serv Discharge Time: > 30 minutes Discharge Instructions DIET: Follow Instructions for: Heart Healthy Diet Activities you can perform: Regular-No Restrictions Follow up Referrals: Cardiology PCP Follow-up Vascular Surgery New Medications: Oxycodone (Oxycodone) 5 Mg Tab 5 MG PO Q6H PRN pain #20 Ref 0 TAB Changed Medications: Amiodarone (Amiodarone) 400 Mg Tab 400 MG PO DAILY Regulate Heart Beat #60 Ref 0 TAB (Changed from: BID) Continued Medications: Colchicine (Colchicine) 0.6 Mg Cap 0.3 MG PO DAILY Gout Ref 0 CAP Metoprolol Tartrate (Metoprolol Tartrate) 100 Mg Tab 100 MG PO BID #60 Ref 0 TAB Discontinued Medications: Apixaban (Eliquis) 5 Mg Tab 5 MG PO BID Blood Clot Prevention #60 Ref 0 TAB Bandar Roldan MD August 03, 2016 10:24
[2016-08-03 11:44] VITALS: BP 115/68; PULSE 96; RESP 17; TEMP 95.9; O2SAT 100
[2016-08-03] MEDS: clonazePAM 0.5 MG TAB PO PRN (15:23)
== END 2016-08-03 17:53 | disposition home or self-care (01) | DRG 982 ==
LOC: PHED 05:09 → PHEDA 07:29 → PH3B 11:43 → OBSVTOIN 07-23 12:12 → N05B 07-23 19:45 → N03B 07-27 15:38 → N06B 07-28 14:15
PROVIDERS: ADMIT Internal Medicine; ATTEND Internal Medicine
PROC: 0W9930Z Drainage of Right Pleural Cavity with Drainage Device, Percutaneous Approach (ICD-10-PCS; 2016-07-24)
PROC: 0WC94ZZ Extirpation of Matter from Right Pleural Cavity, Percutaneous Endoscopic Approach (ICD-10-PCS; 2016-07-27)
PROC: 0BNK4ZZ Release Right Lung, Percutaneous Endoscopic Approach (ICD-10-PCS; principal; 2016-07-27 12:50)
DX: J95.862 Postprocedural seroma of a respiratory system organ or structure following a respiratory system procedure (principal); J94.2 Hemothorax; I42.9 Cardiomyopathy, unspecified; I11.0 Hypertensive heart disease with heart failure; I50.20 Unspecified systolic (congestive) heart failure; T79.7XXA Traumatic subcutaneous emphysema, initial encounter; E87.1 Hypo-osmolality and hyponatremia; I48.91 Unspecified atrial fibrillation; I08.1 Rheumatic disorders of both mitral and tricuspid valves; I27.2 Other secondary pulmonary hypertension; J98.4 Other disorders of lung; K59.00 Constipation, unspecified; M19.90 Unspecified osteoarthritis, unspecified site; Y83.8 Other surgical procedures as the cause of abnormal reaction of the patient, or of later complication, without mention of misadventure at the time of the procedure; Z79.01 Long term (current) use of anticoagulants
CPT/HCPCS: 32557; 71010; 71020; 71250; 80048; 82948; 83735; 84100; 85014; 85018; 85025; 85027; 85610; 85730; 86850; 86900; 86901; 87641; 93005; 94150; C1729; C1769; G0378; J0131; J0690; J1100; J1170; J1580; J1885; J1940; J2060; J2250; J2270; J2370; J2405; J2710; J3010; J7030

== ENCOUNTER 2016-12-07 09:46 | Emergency (ER) | payer MEDICARE ==
[~2016-12-07] VITALS: Ht 162.6 cm; Wt 59.0 kg
[~2016-12-07 09:46] MED LIST changes: +AMIO400T PO; +COLC1CAP3 PO; -EDOX1TAB5 PO; -HYDR12.56 PO; -LISI-360 PO; -LISI10TA3 PO; +METO100T PO; -METO50TA PO; -MULT400T PO; +OXYC-392 PO
[2016-12-07 09:54] VITALS: BP 150/86; PULSE 73; RESP 16; TEMP 98.7; O2SAT 97
--- NOTE | 2016-12-07 09:59 | PD ---
HPI . Bilateral thigh pain Chief Complaint: Leg pain Time Seen by Provider: 09:51 Travel History International Travel<30 days: No Contact w/Intl Traveler<30days: No History of Present Illness HPI This patient presents with a 2 week history of bilateral posterior thigh pain. It has been getting progressively worse. She states that she was unable to get out of bed today secondary to the pain. She subsequently presented to us by rescue for treatment. She admits that she has done nothing for her symptoms at home. No heat, no ice, no [id number] analgesics. Her symptoms are exacerbated by movement and standing. Her symptoms are severe. She denies any paresthesias. No weakness. No incontinence. No fever. PFSH Past Medical History Hx Anticoagulant Therapy: Yes Arthritis: Yes Atrial Fibrillation: Yes Heart Rhythm Problems: Yes (A-fib) Cancer: No Cardiovascular Problems: Yes (cardioversion) High Cholesterol: No Chest Pain: No Congestive Heart Failure: No Diminished Hearing: No Endocrine: No Genitourinary: No Hypertension: Yes Immune Disorder: No Musculoskeletal: Yes Neurologic: No Psychiatric: No Reproductive: No Respiratory: No Menopausal: Yes Past Surgical History Abdominal Surgery: No Body Medical Devices: bilat. breast implants Cardiac Surgery: Yes (ablation for afib) Ear Surgery: No Endocrine Surgery: No Eye Surgery: Yes (bilateral cataracts) Genitourinary Surgery: No Gynecologic Surgery: No Oral Surgery: No Thoracic Surgery: No Social History Alcohol Use: No Tobacco Use: No Substance Use: No Allergies-Medications (Allergen,Severity, Reaction): Coded Allergies: No Known Allergies (Verified , 07/22/16) Reported Meds & Prescriptions Reported Meds & Active Scripts Active Flexeril (Cyclobenzaprine HCl) 10 Mg Tab 10 Mg PO TID Ultram (Tramadol HCl) 50 Mg Tab 50 Mg PO Q4H PRN Amiodarone (Amiodarone HCl) 400 Mg Tab 400 Mg PO DAILY Oxycodone (Oxycodone HCl) 5 Mg Tab 5 Mg PO Q6H PRN Reported Eliquis (Apixaban) 5 Mg Tab 5 Mg PO BID Hydrochlorothiazide 25 Mg Tab 25 Mg PO DAILY Metoprolol Tartrate 100 Mg Tab 100 Mg PO BID Review of Systems Except as stated in HPI: all other systems reviewed are Neg Musculoskeletal: Positive: Myalgias Physical Exam Narrative GENERAL: Awake and alert. SKIN: warm/dry. HEAD: Normocephalic. Atraumatic. EYES: Pupils equal and round. No scleral icterus. No injection or drainage. ENT: No nasal bleeding or discharge. Mucous membranes pink and moist. NECK: Trachea midline. Full range of motion without pain.. CARDIOVASCULAR: Regular rate and rhythm. RESPIRATORY: No accessory muscle use. Clear to auscultation. Breath sounds equal bilaterally. MUSCULOSKELETAL: No obvious deformities. Tenderness to palpation of the hamstrings. NEUROLOGICAL: Awake and alert. No obvious cranial nerve deficits. Motor grossly within normal limits. Normal speech. PSYCHIATRIC: Inappropriate affect. Anxious appearing. Data Data Last Documented VS Vital Signs Date Time Temp Pulse Resp B/P (MAP) Pulse Ox O2 Delivery O2 Flow Rate FiO2 12/07/16 09:54 98.7 73 16 150/86 (107) 97 Orders Orders Acetamin-Hydrocod 325-5 Mg ([place] 5-325 (12/07/16 10:00) Lorazepam (Ativan) (12/07/16 10:00) Prednisone (Deltasone) (12/07/16 10:00) MDM Medical Decision Making Medical Screen Exam Complete: Yes Emergency Medical Condition: Yes Differential Diagnosis Differential diagnosis of leg pain includes but is not limited to lumbar radiculopathy, arthritis, myalgias, DVT. Narrative Course This patient presents with bilateral hamstring pain for 2 weeks. She has no concerning signs or symptoms. I will give her a dose of [place] and a dose of Ativan and then discharge her to home. Diagnosis Primary Impression: Bilateral thigh pain Additional Instructions: I recommend heat to your sore muscles. Med/Other Pt SpecificInfo: Prescription(s) given Scripts Cyclobenzaprine (Flexeril) 10 Mg Tab 10 MG PO TID for Muscle Spasm, #30 TAB 0 Refills Prov: Shakila Arroyo MD 12/07/16 Tramadol (Ultram) 50 Mg Tab 50 MG PO Q4H Y for PAIN, #12 TAB 0 Refills Prov: Shakila Arroyo MD 12/07/16 Disposition: 01 DISCHARGE HOME Condition: Stable Shakila Arroyo MD Dec 07, 2016 09:59
[2016-12-07] MEDS ORDERED: predniSONE 20 MG TAB PO ONE (10:00)
[2016-12-07] MEDS ORDERED: LORazepam 2 MG TAB PO ONE (10:00)
[2016-12-07] MEDS ORDERED: APIX5TAB PO (10:00)
[2016-12-07] MEDS ORDERED: HYDR25TA5 PO (10:00)
[2016-12-07] MEDS ORDERED: ACETAMINOPHEN/HYDROcodone 325 MG/5 MG TAB PO ONE (10:00)
[2016-12-07] MEDS ORDERED: ULTR50TA5 PO (10:03)
[2016-12-07] MEDS ORDERED: CYCL1TAB29 PO (10:03)
[2016-12-07 11:05] VITALS: RESP 14
== END 2016-12-07 11:20 | disposition home or self-care (01) ==
LOC: PHED 09:46
DX: M79.651 Pain in right thigh (principal); M79.652 Pain in left thigh; I48.91 Unspecified atrial fibrillation; I10 Essential (primary) hypertension; Z79.01 Long term (current) use of anticoagulants
CPT/HCPCS: 99284; J7512

== ENCOUNTER 2018-02-07 17:58 | Inpatient (IN) ==
[2018-02-07] MEDS ORDERED: Clindamycin 600 mg/NS Premix 600 MG/50 ML PIGGYBACK IV.SIG ONE (19:24)
--- NOTE | 2018-02-07 19:46 | ED ---
HPI General Chief complaint: Skin/Abscess/Foreign Body Stated complaint: Rt Arm Swelling/Hot/Red Time Seen by Provider: 02/07/18 19:17 Source: patient Mode of arrival: ambulatory Limitations: no limitations History of Present Illness HPI narrative: The patient is a 77-year-old female who presents to the emergency department via private vehicle for swelling and erythema to the right upper extremity. The patient states she has a history of a chronic rash that affects the elbows, arms, neck, which is chronic. However, last night the patient noticed that her right upper extremity started to swell and she had a change in the erythema of the right upper extremity. She now notes the right upper extremity is warm, swollen, and erythematous from the mid to distal humerus all the way to the wrist. The patient cannot recall any bites to the affected area and denies have any animals at home. She denies any fever but has had intermittent chills. The patient's symptoms are moderate. She denies any difficulty with range of motion, however, does note the swollen area is tender to palpation. The patient is currently on Pradaxa, denies any known history of pulmonary embolism or DVT. The patient's primary physician is located at an urgent care. The patient's in home sales consultant is Dr. Quadrat. HERNANDEZ complaint: Reports rash Onset (ago): day(s) Tetanus Immunization: Unsure Location: Reports RUE Severity: moderate Severity scale (1-10): 5 Quality: Reports burning Pain Consistency: constant Relieving factors: none Exacerbating factors: none Context: Reports none Associated symptoms: Reports chills Treatments prior to arrival: Reports none Related Data Allergies Allergy/AdvReac Type Severity Reaction Status Date / Time No Known Allergies Allergy Verified 02/07/18 18:15 Review of Systems ROS: all other systems reviewed are negative [facility] Social History Social History Second Hand Smoke Exposure: No Smoking Status: Never smoker How Often Do You Have a Drink Containing Alcohol: Never Exam Narrative Exam Narrative: GENERAL: Awake, alert, pleasant 77-year-old female who appears her stated age and is in no acute respiratory distress per SKIN: Focused skin assessment warm/dry. HEAD: Atraumatic. Normocephalic. EYES: No injection or drainage ENT: No nasal bleeding or discharge. Mucous membranes pink and moist. NECK: Trachea midline. No JVD. CARDIOVASCULAR: Tachycardic with a heart rate of 105. RESPIRATORY: No accessory muscle use. Clear to auscultation. Breath sounds equal bilaterally. GASTROINTESTINAL: Abdomen soft, non-tender, nondistended. MUSCULOSKELETAL: The right upper extremity is erythematous and edematous from the distal right humerus to the wrist. The patient does have some darker erythematous changes which appear chronic and are symmetric with the left upper extremity and neck. However, the patient has a duller erythema which is blanching and warm to the volar aspect and extensor aspect of the right forearm. There is no right epitrochlear lymphadenopathy or right axillary lymphadenopathy noted. Positive right radial pulse. The arm was warm to touch compared to the left. NEUROLOGICAL: Awake and alert. No obvious cranial nerve deficits. Motor grossly within normal limits. Normal speech. PSYCHIATRIC: Appropriate mood and affect; insight and judgment normal. Course Initial Documented Vital Signs Temperature 98.6 F 02/07/18 18:13 Pulse Rate 105 H 02/07/18 18:13 Respiratory Rate 16 02/07/18 18:13 Blood Pressure 160/99 H 02/07/18 18:13 Pulse Oximetry 99 02/07/18 18:13 Last Documented Vital Signs Temperature 98.7 F 02/07/18 19:13 Pulse Rate 105 H 02/07/18 19:13 Respiratory Rate 22 02/07/18 19:13 Blood Pressure 170/84 H 02/07/18 19:13 Pulse Oximetry 99 02/07/18 19:13 Medical Decision Making [facility] Narrative Medical decision making narrative: IV was established, labs are drawn and sent, and the patient was placed on cardiac telemetry monitoring and continuous pulse oximetry monitoring. Ultrasound of the right upper extremity was obtained. Blood culture, lactic acid, CRP, sed rate were sent to lab. The patient then was administered clindamycin 600 mg intravenously to cover for possible staph/ strep. The patient was also administered normal saline bolus of 500 cc. The patient's white count was 19.0. CRP is 22.5. Ultrasound is negative for DVT. The patient meets sepsis criteria with leukocytosis and tachycardia, has an obvious source of the right upper extremity with cellulitis, may be a staph/ strep infection from open skin wounds/rash on the right upper extremity. The patient received clindamycin initially, was also administered 1 dose of vancomycin. The patient's primary physician is at an urgent care, [facility] Medical Screen Exam Complete: Yes Emergency Medical Condition: Yes Differential Diagnosis Differential Diagnosis: Differential diagnosis includes cellulitis, thrombophlebitis, septic joint, bursitis, abscess, sepsis. Lab Data Result diagrams: 02/07/18 19:42 02/07/18 19:42 Lab Results 02/07/18 02/07/18 02/07/18 Range/Units 19:42 19:42 19:42 CBC w Diff Auto diff final WBC 19.0 H (4.0-11.0) th/mm3 RBC 4.38 (4.00-5.30) mil/mm3 Hgb 14.8 (11.6-15.3) gm/dL Hct 42.8 (35.0-46.0) % MCV 97.8 (80.0-100.0) fL MCH 33.8 (27.0-34.0) pg MCHC 34.6 (32.0-36.0) % RDW 12.6 (11.6-17.2) % Plt Count 312 (150-450) th/mm3 MPV 7.9 (7.0-11.0) fL Neut % (Auto) 83.6 H (16.0-70.0) % Lymph % (Auto) 7.1 L (9.0-44.0) % [place] % (Auto) 5.9 (0.0-8.0) % Eos % (Auto) 0.6 (0.0-4.0) % Baso % (Auto) 2.8 H (0.0-2.0) % Neut # (Auto) 15.9 H (1.8-7.7) th/mm3 Lymph # (Auto) 1.4 (1.0-4.8) th/mm3 [place] # (Auto) 1.1 H (0.0-0.9) th/mm3 Eos # (Auto) 0.1 (0.0-0.4) th/mm3 Baso # (Auto) 0.5 H (0.0-0.2) th/mm3 WBC Differential . Differential Comment . Sodium 128 L (136-145) meq/L Potassium 3.5 (3.5-5.1) meq/L Chloride 94 L (98-107) meq/L Carbon Dioxide 26.8 (21.0-32.0) meq/L Anion Gap 7 (5-15) meq/L BUN 15 (7-18) mg/dL Creatinine 0.72 (0.50-1.00) mg/dL Estimated GFR 79 L (>89) mL/min Random Glucose 117 H (74-106) mg/dL Lactic Acid 0.8 (0.4-2.0) mmol/L Calcium 8.6 (8.5-10.1) mg/dL Total Bilirubin 0.9 (0.2-1.0) mg/dL AST 30 (15-37) U/L ALT 43 (10-53) U/L Alkaline Phosphatase 102 (45-117) U/L C-Reactive Protein 22.50 H (0.00-0.30) mg/dL Total Protein 8.1 (6.4-8.2) g/dL Albumin 4.4 (3.4-5.0) g/dL Imaging Data Radiologist's impression: Venous Doppler Study 02/07/18 19:24 CONCLUSION: No venous thrombosis of the right upper extremity. Discharge Plan Discharge Disposition Patient Disposition: 30 Still Patient Discharge Condition Condition: Stable Discharge Details Diagnosis: Cellulitis, Sepsis, Leukocytosis Physicians Team ED Provider: Lavon Conn Primary Care Provider: Primary Care Physici,No Discharge Interventions Interventions: Vital Signs Last Done: 02/07/18 19:13 Status ED Status: Pending Admission
[2018-02-07 19:57] LABS: Baso # (Auto) 0.5 th/mm3 (0.0-0.2); Baso % (Auto) 2.8 % (0.0-2.0); Eos # (Auto) 0.1 th/mm3 (0.0-0.4); Eos % (Auto) 0.6 % (0.0-4.0); Hematocrit 42.8 % (35.0-46.0); Hemoglobin 14.8 gm/dL (11.6-15.3); Lymph # (Auto) 1.4 th/mm3 (1.0-4.8); Lymph % (Auto) 7.1 % (9.0-44.0); Mean Corpuscular HGB Conc 34.6 % (32.0-36.0); Mean Corpuscular Hemoglobin 33.8 pg (27.0-34.0); Mean Corpuscular Volume 97.8 fL (80.0-100.0); Mean Platelet Volume 7.9 fL (7.0-11.0); Mono # (Auto) 1.1 th/mm3 (0.0-0.9); Mono % (Auto) 5.9 % (0.0-8.0); Neut # (Auto) 15.9 th/mm3 (1.8-7.7); Neut % (Auto) 83.6 % (16.0-70.0); Platelet Count 312 th/mm3 (150-450); Red Blood Count 4.38 mil/mm3 (4.00-5.30); Red Cell Distribution Width 12.6 % (11.6-17.2)
[2018-02-07] MEDS ORDERED: Sodium Chlor 0.9% Inj 500 ML IV.SIG SCH ×2 (20:00→21:00)
[2018-02-07 20:02] LABS: Chloride 94 meq/L (98-107); Potassium 3.5 meq/L (3.5-5.1); Sodium 128 meq/L (136-145)
[2018-02-07 20:05] LABS: Calcium 8.6 mg/dL (8.5-10.1)
[2018-02-07 20:06] LABS: Albumin 4.4 g/dL (3.4-5.0); Anion Gap 7 meq/L (5-15); Blood Urea Nitrogen 15 mg/dL (7-18); Carbon Dioxide 26.8 meq/L (21.0-32.0); Glucose,Random 117 mg/dL (74-106)
--- NOTE | 2018-02-07 20:07 | US ---
EXAM DATE: 02/07/2018 8:04 PM EST AGE/SEX: 77 years / Female INDICATIONS: Right arm redness, pain, and swelling. CLINICAL DATA: This is the patient's initial encounter. Patient reports that signs and symptoms have been present for 1 day and indicates a pain score of 5/10. MEDICAL/SURGICAL HISTORY: . Right arm redness, pain, and swelling. . Aortic valve replacement. COMPARISON: No prior exams available for comparison. FINDINGS: The vessels are compressible and augmentation response is documented. No filling defects a re seen. The flow is phasic with respiration. Other: No organized fluid demonstrated. CONCLUSION: No venous thrombosis of the right upper extremity. Electronically signed by: Hernandez Haro MD 02/07/2018 8:06 PM EST
[2018-02-07 20:09] LABS: Alanine Aminotransferase 43 U/L (10-53); Aspartate Aminotransferase 30 U/L (15-37); Glomerular Filtration Rate 79 mL/min (>89)
[2018-02-07 20:10] LABS: Total Protein 8.1 g/dL (6.4-8.2)
[2018-02-07 20:12] LABS: Alkaline Phosphatase 102 U/L (45-117)
[2018-02-07] MEDS ORDERED: Vancomycin Inj 1,000 MG in Sodium Chlor 0.9% Inj 250 ML IV.SIG ONE (20:33)
[2018-02-07] MEDS ORDERED: Vancomycin Consult Pharmacy OTHER PRN (20:45)
[2018-02-07] MEDS ORDERED: Bisacodyl 10 MG Supp RECTAL PRN (20:46)
[2018-02-07] MEDS: Sod Chloride 0.9% Inj 1,000 ML IV.CONT SCH (22:41)
[2018-02-08] MEDS ORDERED: Morphine Sulfate Inj 2 MG/ML Vial IV.PUSH ONE (03:44)
[2018-02-08 06:58] LABS: Baso % (Auto) 0.2 % (0.0-2.0); Eos # (Auto) 0.3 th/mm3 (0.0-0.4); Eos % (Auto) 1.6 % (0.0-4.0); Hemoglobin 12.5 gm/dL (11.6-15.3); Lymph # (Auto) 1.7 th/mm3 (1.0-4.8); Lymph % (Auto) 10.4 % (9.0-44.0); Mean Corpuscular HGB Conc 33.9 % (32.0-36.0); Mean Corpuscular Hemoglobin 33.6 pg (27.0-34.0); Mean Platelet Volume 8.2 fL (7.0-11.0); Mono # (Auto) 1.2 th/mm3 (0.0-0.9); Mono % (Auto) 7.4 % (0.0-8.0); Neut # (Auto) 12.8 th/mm3 (1.8-7.7); Neut % (Auto) 80.4 % (16.0-70.0); Platelet Count 303 th/mm3 (150-450); Red Blood Count 3.74 mil/mm3 (4.00-5.30); Red Cell Distribution Width 12.6 % (11.6-17.2)
[2018-02-08 07:20] LABS: Alanine Aminotransferase 30 U/L (10-53); Albumin 3.3 g/dL (3.4-5.0); Alkaline Phosphatase 83 U/L (45-117); Anion Gap 10 meq/L (5-15); Aspartate Aminotransferase 21 U/L (15-37); Blood Urea Nitrogen 8 mg/dL (7-18); Calcium 7.8 mg/dL (8.5-10.1); Carbon Dioxide 22.2 meq/L (21.0-32.0); Chloride 105 meq/L (98-107); Glomerular Filtration Rate Greater Than 89 mL/min (>89); Glucose,Random 80 mg/dL (74-106); Potassium 3.4 meq/L (3.5-5.1); Sodium 137 meq/L (136-145); Total Protein 6.3 g/dL (6.4-8.2)
[2018-02-08] MEDS: Sod Chloride 0.9% Inj 1,000 ML IV.CONT SCH ×2 (08:44→16:46)
--- NOTE | 2018-02-08 08:50 | P.HPIM ---
History of Present Illness Primary Care Physician: No Primary Care Physician Chief Complaint: right elbow pain, worsening rash History of Present Illness: The patient is a 77-year-old female with PMH of Afib, who presents to the emergency department for further evaluation of swelling and erythema to the right upper extremity. The patient states she has a history of a chronic rash that affects the elbows, arms, neck, which is chronic. However, last night the patient noticed that her right upper extremity started to swell and she had a change in the erythema of the right upper extremity. She now notes the right upper extremity is warm, swollen, and erythematous from the mid to distal humerus all the way to the wrist. The patient cannot recall any bites to the affected area and denies have any animals at home. She denies any fever but has had intermittent chills. The patient's symptoms are moderate. She denies any difficulty with range of motion, however, does note the swollen area is tender to palpation. Pain is 5/10 in intensity. The patient is currently on Pradaxa, denies any known history of pulmonary embolism or DVT. The patient's primary physician is located at an urgent care. The patient's metrology engineer is Dr. Somers. Says her cardiology Dr is giving her pradaxa prophylactically as she has a h/o Afib and also heart valve replacement. Inpatient Certification: I certify that the inpatient services were ordered in accordance with Medicare regulations governing the order. This includes certification that hospital inpatient services are reasonable and necessary and in the case of services not specified as inpatient-only under 42 CFR 419.22(n), that they are appropriately provided as inpatient services in accordance to with the 2-midnight benchmark under 43 CFR 412.3(e) Estimated Total Length of Stay (Days): 2 Plans for Post Hospital Care: Home Review of Systems All other systems reviewed negative except as stated in HPI PMFSH - History History Provided By: Patient - Medical History Medical History: Medical History (Last Updated 02/08/18 @ 11:27 by Zulma Styles MD) A-fib Arthritis - Surgical History Surgical History: Surgical History (Last Updated 02/08/18 @ 11:27 by Zulma Styles MD) History of heart surgery - Family History Family History: Family History (Last Updated 02/08/18 @ 11:28 by Zulma Styles MD) Other Family history normal - Social History I have reviewed the patient's Social History: Yes - Tobacco History Second Hand Smoke Exposure: No Tobacco Use In Past 30 Days: No Smoking Status: Never smoker - Alcohol History How Often Do You Have a Drink Containing Alcohol: 4 or more times a week - Substance Use History Substance History: No History of Abuse - Travel History Recent Travel in the [place] Within the Last 8 Weeks: No Recent Travel Out of the Country Within the Last 8 Weeks: No - Immunization History Tetanus Immunization: Unsure Hx Influenza Vaccine This Season: No Medications and Allergies Active Medications: Active Medications Hydrocodone Bitart/Acetaminophen (Ward 5/325) 1 tab PO Q4H PRN PRN Reason: pain 1 to 10 Last Admin: 02/08/18 04:02 Dose: 1 tab Al Hydroxide/Mg Hydroxide (Milk Of Magnesia Liq) 30 ml PO Q12H PRN PRN Reason: Mild Constipation Bisacodyl (Dulcolax Supp) 10 mg RECTAL DAILY PRN PRN Reason: SEVERE CONSITIPATION Sodium Chloride (Ns Inj) 1,000 mls @ 100 mls/hr IV.CONT .Q10H [facility] Last Admin: 02/07/18 22:41 Dose: 100 mls/hr Vancomycin HCl 1,250 mg/ (Sodium Chloride) 262.5 mls @ 250 mls/hr IV.SIG Q18H [facility] Last Infusion: 02/08/18 05:06 Dose: Infused Lactulose (Lactulose Liq) 30 ml PO DAILY PRN PRN Reason: SEVERE CONSITIPATION Miscellaneous Information ([facility] Ordered Lab Info) 0 each OTHER ONCE ONE Stop: 02/09/18 23:46 Pharmacy Profile Note (Vancomycin Consult Pharmacy) 1 each OTHER UNSCH PRN PRN Reason: Pharmacy to dose Sennosides (Senokot) 17.2 mg PO Q12H PRN PRN Reason: Moderate Constipation Allergies Allergy/AdvReac Type Severity Reaction Status Date / Time No Known Allergies Allergy Verified 02/07/18 18:15 Home Medications Medication Instructions Recorded Confirmed Type dabigatran etexilate [Pradaxa] 75 mg PO BID 02/07/18 02/07/18 History Exam Vital signs: Vital Signs 02/07/18 18:13 02/07/18 19:13 02/07/18 21:03 Temperature 98.6 F 98.7 F 99.5 F Pulse Rate 105 H 105 H 87 Respiratory Rate 16 22 18 Blood Pressure 160/99 H 170/84 H 166/86 H Pulse Oximetry 99 99 96 02/07/18 22:30 02/08/18 04:00 Temperature 98.5 F 98.7 F Pulse Rate 98 H 85 Respiratory Rate 20 20 Blood Pressure 133/81 133/81 Pulse Oximetry 98 100 Intake & Output 02/07/18 02/08/18 02/08/18 18:59 06:59 18:59 Intake Total 1812.5 / 1812.5 Balance 1812.5 / 1812.5 Weight 68 kg 68.8 kg Intake: IV 1562.5 / 1562.5 Cleocin 600 mg/NS Premix 600 mg 50 / 50 In 50 ml @ 100 mls/hr IV.SIG ONCE ONE Rx#:[id number] NS Inj 500 ML @ 1000 mls/hr IV. 1000 / 1000 SIG BOLUS JACQUELINE Rx#:[id number] Vancomycin Inj 1,000 MG In NS 250 / 250 Inj 250 ML @ 250 mls/hr IV.SIG ONCE ONE Rx#:[id number] Vancomycin Inj 1,250 MG In NS 262.5 / 262.5 Inj 250 ML @ 250 mls/hr IV.SIG Q18H [facility] Rx#:[id number] Oral 250 / 250 Other: # Voids 2 Weight On Admission 68.7 kg Narrative: GENERAL: Pleasant 77 yo F, well nourished, well developed patient, appears in nad. SKIN: Warm and dry. See MSK HEAD: Atraumatic. Normocephalic. EYES: Pupils equal and round. No scleral icterus. No injection or drainage. ENT: No nasal bleeding or discharge. Mucous membranes pink and moist. NECK: Trachea midline. No JVD. CARDIOVASCULAR: Regular rate and rhythm. RESPIRATORY: No accessory muscle use. Clear to auscultation. Breath sounds equal bilaterally. GASTROINTESTINAL: Abdomen soft, non-tender, nondistended. Hepatic and splenic margins not palpable. MUSCULOSKELETAL: Right upper extremity is erythematous , edematous and tender to palpation from the distal right humerus to the wrist. The patient does have some darker erythematous changes which appear chronic and are symmetric with the left upper extremity and neck. However, the patient has a duller erythema which is blanching and warm to the volar aspect and extensor aspect of the right forearm. There is no right epitrochlear lymphadenopathy or right axillary lymphadenopathy noted. Positive right radial pulse. The arm was warm to touch compared to the left. NEUROLOGICAL: Awake and alert. No obvious cranial nerve deficits. Motor grossly within normal limits. Five out of 5 muscle strength in the arms and legs. Normal speech. Results - Labs CBC & Chem 7: 02/08/18 05:25 02/08/18 05:25 Labs: Short CBC 02/07/18 02/08/18 Range/Units 19:42 05:25 WBC 19.0 H 16.0 H (4.0-11.0) th/mm3 Hgb 14.8 12.5 D (11.6-15.3) gm/dL Hct 42.8 37.0 (35.0-46.0) % Plt Count 312 303 (150-450) th/mm3 BMP 02/07/18 02/08/18 19:42 05:25 Sodium 128 L 137 Potassium 3.5 3.4 L Chloride 94 L 105 D Carbon Dioxide 26.8 22.2 BUN 15 8 Creatinine 0.72 0.44 L Calcium 8.6 7.8 L D Liver Function 02/07/18 02/08/18 Range/Units 19:42 05:25 Total Bilirubin 0.9 1.0 (0.2-1.0) mg/dL AST 30 21 (15-37) U/L ALT 43 30 (10-53) U/L Alkaline Phosphatase 102 83 (45-117) U/L Albumin 4.4 3.3 L D (3.4-5.0) g/dL - Imaging Impressions Venous Doppler Study 02/07/18 19:24 CONCLUSION: No venous thrombosis of the right upper extremity. Caprini VTE Risk Assessment Caprini VTE Risk Assessment: Moderate/High Risk (score >= 2) Caprini Risk Assessment Model: Point Value = 1 Point Value = 2 Point Value = 3 Point Value = 5 Age 41-60 Minor surgery BMI > 25 kg/m2 Swollen legs Varicose veins or History of unexplained or recurrent spontaneous Oral contraceptives or hormone replacement Sepsis (< 1 month) Serious lung disease, including pneumonia (< 1 month) Abnormal pulmonary function Acute myocardial infarction Congestive heart failure (< 1 month) History of inflammatory bowel disease Medical patient at bed rest Age 61-74 Arthroscopic surgery Major open surgery (> 45 min) Laparoscopic surgery (> 45 min) Malignancy Confined to bed (> 72 hours) Immobilizing plaster cast Central venous access Age >= 75 History of VTE Family history of VTE Factor V Leiden Prothrombin [id number] Lupus anticoagulant Anticardiolipin antibodies Elevated serum homocysteine Heparin-induced thrombocytopenia Other congenital or acquired thrombophilia Stroke (< 1 month) Elective arthroplasty Hip, pelvis, or leg fracture Acute spinal cord injury (< 1 month) Prophylaxis Regimen: Total Risk Factor Score Risk Level Prophylaxis Regimen 0-1 Low Early ambulation 2 Moderate Order ONE of the following: *Sequential Compression Device (SCD) *Heparin 5000 units SQ BID 3-4 Higher Order ONE of the following medications: *Heparin 5000 units SQ TID *Enoxaparin/Lovenox 40 mg SQ daily (WT < 150 kg, CrCl > 30 mL/min) *Enoxaparin/Lovenox 30 mg SQ daily (WT < 150 kg, CrCl > 10-29 mL/min) *Enoxaparin/Lovenox 30 mg SQ BID (WT < 150 kg, CrCl > 30 mL/min) AND/OR *Sequential Compression Device (SCD) 5 or more Highest Order ONE of the following medications: *Heparin 5000 units SQ TID (Preferred with Epidurals) *Enoxaparin/Lovenox 40 mg SQ daily (WT < 150 kg, CrCl > 30 mL/min) *Enoxaparin/Lovenox 30 mg SQ daily (WT < 150 kg, CrCl > 10-29 mL/min) *Enoxaparin/Lovenox 30 mg SQ BID (WT < 150 kg, CrCl > 30 mL/min) AND *Sequential Compression Device (SCD) Assessment and Plan - Plan Cellulitis. Sepsis - leukocytosis, tachycardia, right upper extremity cellulitis Doppler US shows no DVT Received clindamycin IV abx in the ED. Will start IV vancomycin, pharm consulted Monitor Wound cx if obtainable, blood cx pending Pain meds per pain scale, taper H/o Afib, heart valve repair - unspecified). Follows with Dr Somers cardiology who adviced continuing paradaxa ppx per patient Continue home meds as appropriate DVT ppx on pradaxa H&P: Quality - VTE Deep Vein Thrombosis/Pulmonary Embolism Present on Admission: No
[2018-02-08] MEDS ORDERED: HYDROmorphone PF Inj 1 MG/ML Ampul IV.PUSH PRN (11:30)
[2018-02-08] MEDS ORDERED: Vancomycin Inj 1,250 MG in Sodium Chlor 0.9% Inj 250 ML IV.SIG SCH (12:00)
[2018-02-08] MEDS ORDERED: Vancomycin Inj 1,000 MG in Sodium Chlor 0.9% Inj 250 ML IV.SIG SCH (15:00)
[2018-02-08] MEDS: Vancomycin Inj 1,400 MG in Sodium Chlor 0.9% Inj 500 ML IV.SIG SCH (17:17)
[2018-02-09] MEDS: Sod Chloride 0.9% Inj 1,000 ML IV.CONT SCH ×2 (03:30→13:49)
[2018-02-09] MEDS: Vancomycin Inj 1,400 MG in Sodium Chlor 0.9% Inj 500 ML IV.SIG SCH ×2 (06:20→17:09)
[2018-02-09 07:37] LABS: Baso # (Auto) 0.1 th/mm3 (0.0-0.2); Baso % (Auto) 0.9 % (0.0-2.0); Eos # (Auto) 0.5 th/mm3 (0.0-0.4); Eos % (Auto) 4.4 % (0.0-4.0); Hematocrit 35.1 % (35.0-46.0); Hemoglobin 11.6 gm/dL (11.6-15.3); Lymph # (Auto) 1.4 th/mm3 (1.0-4.8); Mean Corpuscular HGB Conc 33.2 % (32.0-36.0); Mean Corpuscular Hemoglobin 33.4 pg (27.0-34.0); Mean Corpuscular Volume 100.7 fL (80.0-100.0); Mean Platelet Volume 8.3 fL (7.0-11.0); Mono % (Auto) 8.7 % (0.0-8.0); Neut # (Auto) 8.1 th/mm3 (1.8-7.7); Platelet Count 261 th/mm3 (150-450); Red Blood Count 3.48 mil/mm3 (4.00-5.30); Red Cell Distribution Width 12.7 % (11.6-17.2); White Blood Count 11.1 th/mm3 (4.0-11.0)
[2018-02-09 07:39] LABS: Chloride 104 meq/L (98-107); Potassium 3.5 meq/L (3.5-5.1); Sodium 135 meq/L (136-145)
[2018-02-09 07:41] LABS: Calcium 7.6 mg/dL (8.5-10.1)
[2018-02-09 07:42] LABS: Anion Gap 7 meq/L (5-15); Blood Urea Nitrogen 5 mg/dL (7-18); Carbon Dioxide 23.8 meq/L (21.0-32.0); Glucose,Random 90 mg/dL (74-106)
[2018-02-09 07:45] LABS: Glomerular Filtration Rate Greater Than 89 mL/min (>89)
[2018-02-09] MEDS ORDERED: Sodium Chloride 0.65% Nasal Spray 45 ML Bottle EACH NARE PRN (09:05)
--- NOTE | 2018-02-09 09:51 | P.PNIM ---
Subjective Interval history: 77-year-old female who is seen in follow-up today for cellulitis of the right upper extremity. Patient indicates that it does appear to be better. However she has developed itching. Vital signs are stable. Patient remains afebrile. Physical Exam Vital signs: Vital Signs 02/08/18 10:32 02/08/18 12:00 02/08/18 14:23 Temperature 98.1 F Pulse Rate 106 H Respiratory Rate 20 18 20 Blood Pressure 112/59 L Pulse Oximetry 95 02/08/18 15:20 02/08/18 16:00 02/08/18 20:00 Temperature 97.3 F L 97.0 F L Pulse Rate 120 H 93 H Respiratory Rate 20 18 18 Blood Pressure 110/66 113/64 Pulse Oximetry 96 97 02/09/18 00:00 02/09/18 08:00 Temperature 97.5 F L 97.1 F L Pulse Rate 88 77 Respiratory Rate 18 18 Blood Pressure 115/68 110/63 Pulse Oximetry 98 96 Intake & Output 02/08/18 02/09/18 02/09/18 18:59 06:59 18:59 Intake Total 2250 / 2250 1514 / 1514 514 / 514 Balance 2250 / 2250 1514 / 1514 514 / 514 Weight 68.1 kg Intake: IV 1999 1514 / 1514 514 / 514 NS Inj 1,000 ML @ 100 mls/hr IV 1999 1000 / 1000 .CONT .Q10H [facility] Rx#:[id number] Vancomycin Inj 1,400 MG In NS 514 / 514 514 / 514 Inj 500 ML @ 250 mls/hr IV.SIG Q12H [facility] Rx#:[id number] Oral 250 / 250 Other: # Voids 2 4 # Bowel Movements 2 Narrative: GENERAL: Well-developed, well-nourished, in no acute distress. alert and orientated HEENT: Head is normocephalic without any lesions or masses noted. Facial features are symmetric. Eyes: Extraocular muscles are intact. Conjunctivae were clear. NECK: Supple without any masses. Trachea midline no deviation. No JVD, CARDIAC: Regular rhythm, regular rate. S1/S2 are heard. No murmurs gallops or rubs. LUNGS: Clear to auscultation bilaterally. No wheeze, rhonchi or rales. No use of accessory muscles on inspiration or expiration. ABDOMEN: Soft, nontender. Nondistended. Bowel sounds heard in all 4 quadrants. No organomegaly or masses. Negative rebound, negative guarding EXTREMITIES: No edema, pulses are equal bilaterally. No cyanosis or clubbing NEUROLOGY: Mood and affect appear appropriate. Cranial nerves II through XII grossly intact. Moving all extremities, speech is clear RIGHT UPPER EXTREMITIES: Area does appear to be improving. Erythema has rescinded back from the previously marked area. There is still is some mild edema. Results - Labs CBC & Chem 7: 02/09/18 06:00 02/09/18 06:00 Laboratory Results - last 24 hr 02/09/18 02/09/18 06:00 06:00 CBC w Diff Auto diff final WBC 11.1 H RBC 3.48 L Hgb 11.6 Hct 35.1 MCV 100.7 H MCH 33.4 MCHC 33.2 RDW 12.7 Plt Count 261 MPV 8.3 Neut % (Auto) 73.0 H Lymph % (Auto) 13.0 [place] % (Auto) 8.7 H Eos % (Auto) 4.4 H Baso % (Auto) 0.9 Neut # (Auto) 8.1 H Lymph # (Auto) 1.4 [place] # (Auto) 1.0 H Eos # (Auto) 0.5 H Baso # (Auto) 0.1 WBC Differential . Differential Comment . Sodium 135 L Potassium 3.5 Chloride 104 Carbon Dioxide 23.8 Anion Gap 7 BUN 5 L Creatinine 0.40 L Estimated GFR Greater than 89 Random Glucose 90 Calcium 7.6 L Microbiology 02/07/18 19:42 Blood - Peripheral Aerobic Blood Culture - Preliminary No growth in 1 day 02/07/18 19:42 Blood - Peripheral Anaerobic Blood Culture - Preliminary No growth in 1 day 02/07/18 19:36 Blood - Peripheral Aerobic Blood Culture - Preliminary No growth in 1 day 02/07/18 19:36 Blood - Peripheral Anaerobic Blood Culture - Preliminary No growth in 1 day Assessment and Plan - Plan Sepsis, resolved -Patient originally met with leukocytosis, tachycardia, cellulitis -Patient received clindamycin emergency department and continued on vancomycin -Blood cultures are negative for 1 day Cellulitis of the right upper extremity, improving -Patient continued on vancomycin -Venous Doppler was performed which did not indicate any abnormality or embolic event Atrial fibrillation -Heart rate is controlled, patient continued on Pradaxa for anticoagulation DVT prevention -Patient is on Pradaxa Discharge Planning: Anticipate discharge within 24 hours, depending on patient's response to treatment
[2018-02-09] MEDS ORDERED: Pharmacy Ordered Lab Info OTHER ONE (23:45)
[2018-02-10 00:26] VITALS: O2SAT 96
[2018-02-10] MEDS: Sod Chloride 0.9% Inj 1,000 ML IV.CONT SCH ×2 (01:04→10:20)
[2018-02-10] MEDS: Vancomycin Inj 1,400 MG in Sodium Chlor 0.9% Inj 500 ML IV.SIG SCH (05:45)
[2018-02-10] MEDS ORDERED: Pharmacy Ordered Lab Info OTHER ONE (05:45)
--- NOTE | 2018-02-10 08:17 | P.DS ---
Date of admission: 02/07/18 20:43 Primary care physician: No Primary Care Physician Attending physician on discharge: Chaya Bertrand Anticipated date of discharge: 02/10/18 Brief History from admission: The patient is a 77-year-old female with PMH of Afib, who presents to the emergency department for further evaluation of swelling and erythema to the right upper extremity. The patient states she has a history of a chronic rash that affects the elbows, arms, neck, which is chronic. However, last night the patient noticed that her right upper extremity started to swell and she had a change in the erythema of the right upper extremity. She now notes the right upper extremity is warm, swollen, and erythematous from the mid to distal humerus all the way to the wrist. The patient cannot recall any bites to the affected area and denies have any animals at home. She denies any fever but has had intermittent chills. The patient's symptoms are moderate. She denies any difficulty with range of motion, however, does note the swollen area is tender to palpation. Pain is 5/10 in intensity. The patient is currently on Pradaxa, denies any known history of pulmonary embolism or DVT. The patient's primary physician is located at an urgent care. The patient's advisor advocate angel co founder is Dr. Somers. Says her cardiology Dr is giving her pradaxa prophylactically as she has a h/o Afib and also heart valve replacement. DS: Diagnosis - Discharge Diagnosis (1) Cellulitis Status: Acute (2) Sepsis Status: Acute (3) Leukocytosis Status: Acute DS: Medications - Discharge Medications Prescriptions: doxycycline hyclate 100 mg PO BID #20 cap hydrocodone-acetaminophen 1 tab PO Q4H PRN #12 tab PRN Reason: Acute Pain DS: Summary Hospital Course: 77-year-old female who originally presented to the hospital because of right arm swelling, erythema. Patient does have history and areas of what appears to be psoriasis or eczema and she has significant edema, erythema noted of the right upper extremity. She came to emergency department for evaluation. Patient had workup done and found to have signs of sepsis with leukocytosis, tachycardia, cellulitis. Patient had ultrasound/venous Doppler done of the extremity without any signs of DVT or embolic event. Patient was been to the hospital on IV antibiotics to include vancomycin. Patient tolerated hospitalization well. Her erythema and cellulitis improved significantly. Patient no longer meets criteria for sepsis. Discussed with patient extensively on her skin lesions, cellulitis. 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 In reference to her cellulitis it is significantly improved. Patient continue outpatient management with oral antibiotics. We will plan discharge accordingly with outpatient follow-up. - Time Spent with Patient Total time spent providing and/or coordinating discharge services: Greater than 30 minutes - Quality: VTE Deep Vein Thrombosis/Pulmonary Embolism Present on Admission: No Exam Vital signs: Vital Signs 02/09/18 12:00 02/09/18 16:00 02/09/18 20:00 Temperature 97.1 F L 97.3 F L 96.4 F L Pulse Rate 107 H 104 H 92 H Respiratory Rate 18 18 20 Blood Pressure 103/67 125/80 142/89 H Pulse Oximetry 95 99 98 02/09/18 21:35 02/10/18 00:00 02/10/18 00:51 Temperature 98 F Pulse Rate 96 H Respiratory Rate 18 20 18 Blood Pressure 145/79 H Pulse Oximetry 96 02/10/18 01:06 02/10/18 04:58 Temperature Pulse Rate Respiratory Rate 18 18 Blood Pressure Pulse Oximetry Intake & Output 02/09/18 02/10/18 02/10/18 18:59 06:59 18:59 Intake Total 1514 / 1514 1854 / 1854 Balance 1514 / 1514 1854 / 1854 Weight 68.1 kg Intake: IV 1514 / 1514 1514 / 1514 NS Inj 1,000 ML @ 100 mls/hr IV 1000 / 1000 1000 / 1000 .CONT .Q10H [facility] Rx#:[id number] Vancomycin Inj 1,400 MG In NS 514 / 514 514 / 514 Inj 500 ML @ 250 mls/hr IV.SIG Q12H [facility] Rx#:[id number] Oral 340 / 340 Other: # Voids 4 3 Date of Last Bowel Movement 02/09/18 # Bowel Movements 2 Narrative: GENERAL: Well-developed, well-nourished, in no acute distress. alert and orientated HEENT: Head is normocephalic without any lesions or masses noted. Facial features are symmetric. Eyes: Extraocular muscles are intact. Conjunctivae were clear. NECK: Supple without any masses. Trachea midline no deviation. No JVD, CARDIAC: Regular rhythm, regular rate. S1/S2 are heard. No murmurs gallops or rubs. LUNGS: Clear to auscultation bilaterally. No wheeze, rhonchi or rales. No use of accessory muscles on inspiration or expiration. ABDOMEN: Soft, nontender. Nondistended. Bowel sounds heard in all 4 quadrants. No organomegaly or masses. Negative rebound, negative guarding EXTREMITIES: No edema, pulses are equal bilaterally. No cyanosis or clubbing NEUROLOGY: Mood and affect appear appropriate. Cranial nerves II through XII grossly intact. Moving all extremities, speech is clear RIGHT UPPER EXTREMITIES: Area her significant improvement of her erythema has extended from the line significantly. Only mild erythema noted around the elbow and up on the lateral aspect of the forearm. Results Procedures completed during hospitalization: None Labs on day of discharge: Labs from last 24 hours 02/10/18 05:45 Vancomycin Trough Pending Preliminary micro results at discharge 02/07/18 19:42 Aerobic Blood Culture - Preliminary Blood - Peripheral No growth in 2 days Anaerobic Blood Culture - Preliminary No growth in 2 days 02/07/18 19:36 Aerobic Blood Culture - Preliminary Blood - Peripheral No growth in 2 days Anaerobic Blood Culture - Preliminary No growth in 2 days - Impressions ITS Impressions Venous Doppler Study 02/07/18 19:24 CONCLUSION: No venous thrombosis of the right upper extremity. Discharge Plan - Discharge Disposition Patient Disposition: 01 Discharge Home - Discharge Condition Condition: Stable - Discharge Order Discharge Orders: Discharge Order (Routine); Ordered 02/10/18 Ordered By: Twin Rubin - Discharge Details Anticipated Discharge Date: 02/10/18 - Physicians Team Primary Care Provider: Primary Care Charlene Alarcon Attending Provider: Chaya Bertrand
[2018-02-10 09:43] VITALS: BP 139/90; PULSE 106; RESP 20; TEMP 96.5
[2018-02-10] MEDS ORDERED: Vancomycin Inj 1,500 MG in Sodium Chlor 0.9% Inj 500 ML IV.SIG SCH (18:00)
[2018-02-12] MEDS ORDERED: VANCOMYCIN TROUGH OTHER ONE (05:45)
== END 2018-02-10 10:57 | disposition home or self-care (01) ==
LOC: PHED 17:58 → PHEDA 20:43 → PH3 22:15
PROVIDERS: ADMIT Hospitalist; ATTEND Hospitalist